=== PATIENT | female | born 1970 | race Caucasian/White ===

== ENCOUNTER 2016-09-23 17:29 | Inpatient (IN) | payer BC ==
[2016-09-23] MEDS ORDERED: ASPIRIN 81 MG CHEW PO STA (17:41)
[2016-09-23] MEDS ORDERED: SODIUM CHLORIDE 0.9% 1,000 ML IV STA (17:41)
--- NOTE | 2016-09-23 17:44 | ED ---
Arrhythmia/Palpitations HPI - General Source: patient, RN notes reviewed Mode of arrival: wheelchair Limitations: no limitations <Lorelei Leonardo - Last Filed: 09/23/16 18:47> <Howard Silva - Last Filed: 09/23/16 18:54> - General Chief Complaint: Arrhythmia/Palpitations Stated Complaint: A-fib Time Seen by Provider: 09/23/16 17:38 - History of Present Illness Initial Comments: 46-year-old female presents emergency Department chief complaint of rapid heart rate. Patient states she felt of heart was going fast. She is history of A. fib. Patient states she sounds are also however she's not taken in over a month because it makes her periods heavy. Patient denies any chest pain she denies any shortness of breath she denies any headache. Patient states that she did take her metoprolol which she takes today. Patient states his of the irregular heartbeat started this morning.Patient denies any recent fever, chills , shortness of breath, chest pain, back pain, abdominal pain, nausea vomiting, numbness or tingling, dysuria or hematuria, constipation or diarrhea, headaches or visual changes, or any other current symptoms. (Lorelei Leonardo) - Related Data Home Medications Medication Instructions Recorded Confirmed Ferrous Sulfate [Iron (65 MG 325 mg PO HS 05/03/15 09/23/16 Elemental)] Metoprolol Tartrate 50 mg PO BID 05/03/15 09/23/16 Sertraline HCl 100 mg PO DAILY 05/03/15 09/23/16 Triamterene/Hydrochlorothiazid 1 tab PO DAILY 05/03/15 09/23/16 [Triamterene-Hctz 37.5-25 mg Tb] Previous Rx's Medication Instructions Recorded Rivaroxaban [Xarelto] 20 mg PO DAILY #30 tab 05/04/15 Allergies Allergy/AdvReac Type Severity Reaction Status Date / Time venom-honey bee Allergy Swelling Verified 09/23/16 18:34 [bee venom (honey bee)] Review of Systems ROS Other: All systems not noted in ROS Statement are negative. <Lorelei Leonardo - Last Filed: 09/23/16 18:47> ROS Other: All systems not noted in ROS Statement are negative. <Howard Silva - Last Filed: 09/23/16 18:54> ROS Statement: Those systems with pertinent positive or pertinent negative responses have been documented in the HPI. Past Medical History Past Medical History: Atrial Fibrillation, Hypertension Additional Past Medical History / Comment(s): anemia History of Any Multi-Drug Resistant Organisms: None Reported Past Surgical History: Section Past Psychological History: Anxiety Smoking Status: Never smoker Past Alcohol Use History: Rare Past Drug Use History: None Reported - Past Family History Father Family Medical History: Hyperlipidemia, Osteoarthritis (OA) Mother Family Medical History: Asthma Additional Family Medical History / Comment(s): GRAVES DISEASE. PT'S MOM IN HER SLEEP AT AGE OF 63 <Lorelei Leonardo - Last Filed: 09/23/16 18:47> General Exam Limitations: no limitations <Lorelei Leonardo - Last Filed: 09/23/16 18:47> General appearance: alert, in no apparent distress, anxious Head exam: Present: atraumatic, normocephalic, normal inspection Eye exam: Present: normal appearance, PERRL, EOMI. Absent: scleral icterus, conjunctival injection, periorbital swelling ENT exam: Present: normal exam, mucous membranes moist Neck exam: Present: normal inspection. Absent: tenderness, meningismus, lymphadenopathy Respiratory exam: Present: normal lung sounds bilaterally. Absent: respiratory distress, wheezes, rales, rhonchi, stridor Cardiovascular Exam: Present: tachycardia, irregular rhythm, normal heart sounds. Absent: systolic murmur, diastolic murmur, rubs, gallop, clicks GI/Abdominal exam: Present: soft, normal bowel sounds. Absent: distended, tenderness, guarding, rebound, rigid Extremities exam: Present: normal inspection, full ROM, normal capillary refill. Absent: tenderness, pedal edema, joint swelling, calf tenderness Back exam: Present: normal inspection Neurological exam: Present: alert, oriented X3, CN II-XII intact Psychiatric exam: Present: normal affect, normal mood Skin exam: Present: warm, dry, intact, normal color. Absent: rash <Howard Silva - Last Filed: 09/23/16 18:54> - General Exam Comments Initial Comments: General: The patient is awake and alert, in no distress, and does not appear acutely ill. Eye: Pupils are equal, round and reactive to light, extra-ocular movements are intact; there is normal conjunctiva bilaterally. No signs of icterus. Ears, nose, mouth and throat: There are moist mucous membranes and no oral lesions. Neck: The neck is supple, there is no tenderness. Cardiovascular: There is a tachycardia with an irregular rhythm. No murmur, rub or gallop is appreciated. Respiratory: Lungs are clear to auscultation, respirations are non-labored, breath sounds are equal. No wheezes, stridor, rales, or rhonchi. Gastrointestinal: Soft, non-distended, non-tender abdomen without masses or organomegaly noted. There is no rebound or guarding present. No CVA tenderness. Bowel sounds are unremarkable. Back: There is no tenderness to palpation in the midline. There is no obvious deformity. No rashes noted. Musculoskeletal: Normal ROM, no tenderness, There is no pedal edema. There is no calf tenderness or swelling. Sensation intact. Pulses equal bilaterally 2+. Neurological: CN II-XII intact, There are no obvious motor or sensory deficits. Coordination appears grossly intact. Speech is normal. Skin: Skin is warm and dry and no rashes or lesions are noted. Psychiatric: Cooperative, appropriate mood & affect, normal judgment. (Lorelei Leonardo) EKG Findings - EKG Comments: EKG Findings:: Atrial fibrillation with RVR, ventricular rate 151, QRS duration 302 <Lorelei Leonardo - Last Filed: 09/23/16 18:47> Medical Decision Making - Lab Data Result diagrams: 09/23/16 17:45 09/23/16 17:45 <Lorelei Leonardo - Last Filed: 09/23/16 18:47> - Lab Data Result diagrams: 09/23/16 17:45 09/23/16 17:45 <Howard Silva - Last Filed: 09/23/16 18:54> - Medical Decision Making 46-year-old female presents with concern for irregular heartbeat. This time she is found to be in A. fib with RVR. Patient has not been taking her Xarelto. This time patient is found to be in A. fib. Cardizem drip was started patient's heart rate has come down to 120 at this time. We will continue the Cardizem and heparin was started as well we will admit the patient for continued observation. Cardiacs are negative at this time we will continue to repeat. Patient has been this plan. (Lorelei Leonardo) 46-year-old the ER with A. fib with RVR rate of 160s, rate currently well- controlled, place and anticoagulation Gene for cardiac observation, telemetry (Howard Sliva) - Lab Data Lab Results 09/23/16 09/23/16 09/23/16 Range/Units 17:45 17:45 17:45 WBC 7.7 (3.8-10.6) k/uL RBC 4.54 (3.80-5.40) m/uL Hgb 13.3 (11.4-16.0) gm/dL Hct 36.8 (34.0-46.0) % MCV 81.1 (80.0-100.0) fL MCH 29.2 (25.0-35.0) pg MCHC 36.0 (31.0-37.0) g/dL RDW 13.7 (11.5-15.5) % Plt Count 148 L (150-450) k/uL Neutrophils % 67 % Lymphocytes % 22 % Monocytes % 5 % Eosinophils % 2 % Basophils % 1 % Neutrophils # 5.2 (1.3-7.7) k/uL Lymphocytes # 1.7 (1.0-4.8) k/uL Monocytes # 0.4 (0-1.0) k/uL Eosinophils # 0.1 (0-0.7) k/uL Basophils # 0.1 (0-0.2) k/uL PT (9.0-12.0) sec INR (<1.1) APTT (22.0-30.0) sec Sodium 140 (137-145) mmol/L Potassium 4.2 (3.5-5.1) mmol/L Chloride 103 (98-107) mmol/L Carbon Dioxide 26 (22-30) mmol/L Anion Gap 11 mmol/L BUN 13 (7-17) mg/dL Creatinine 0.68 (0.52-1.04) mg/dL Est GFR (MDRD) Af Amer >60 (>60 ml/min/1.73 sqM) Est GFR (MDRD) Non-Af >60 (>60 ml/min/1.73 sqM) Glucose 122 H (74-99) mg/dL Calcium 9.1 (8.4-10.2) mg/dL Magnesium 1.8 (1.6-2.3) mg/dL Total Bilirubin 0.9 (0.2-1.3) mg/dL AST 35 (14-36) U/L ALT 53 H (9-52) U/L Alkaline Phosphatase 38 (38-126) U/L Total Creatine Kinase 93 (30-135) U/L CK-MB (CK-2) 0.9 (0.0-2.4) ng/mL CK-MB (CK-2) Rel Index 1.0 Troponin I <0.012 (0.000-0.034) ng/mL NT-Pro-B Natriuret Pep pg/mL Total Protein 7.6 (6.3-8.2) g/dL Albumin 4.4 (3.5-5.0) g/dL Urine Color Urine Appearance (Clear) Urine pH (5.0-8.0) Ur Specific [place] (1.001-1.035) Urine Protein (Negative) Urine Glucose (UA) (Negative) Urine Ketones (Negative) Urine Blood (Negative) Urine Nitrite (Negative) Urine Bilirubin (Negative) Urine Urobilinogen (<2.0) mg/dL Ur Leukocyte Esterase (Negative) Urine RBC (0-5) /hpf Urine WBC (0-5) /hpf Ur Squamous Epith Cells (0-4) /hpf Amorphous Sediment (None) /hpf 09/23/16 09/23/16 09/23/16 Range/Units 17:45 17:45 17:45 WBC (3.8-10.6) k/uL RBC (3.80-5.40) m/uL Hgb (11.4-16.0) gm/dL Hct (34.0-46.0) % MCV (80.0-100.0) fL MCH (25.0-35.0) pg MCHC (31.0-37.0) g/dL RDW (11.5-15.5) % Plt Count (150-450) k/uL Neutrophils % % Lymphocytes % % Monocytes % % Eosinophils % % Basophils % % Neutrophils # (1.3-7.7) k/uL Lymphocytes # (1.0-4.8) k/uL Monocytes # (0-1.0) k/uL Eosinophils # (0-0.7) k/uL Basophils # (0-0.2) k/uL PT 10.2 (9.0-12.0) sec INR 1.0 (<1.1) APTT 22.6 (22.0-30.0) sec Sodium (137-145) mmol/L Potassium (3.5-5.1) mmol/L Chloride (98-107) mmol/L Carbon Dioxide (22-30) mmol/L Anion Gap mmol/L BUN (7-17) mg/dL Creatinine (0.52-1.04) mg/dL Est GFR (MDRD) Af Amer (>60 ml/min/1.73 sqM) Est GFR (MDRD) Non-Af (>60 ml/min/1.73 sqM) Glucose (74-99) mg/dL Calcium (8.4-10.2) mg/dL Magnesium (1.6-2.3) mg/dL Total Bilirubin (0.2-1.3) mg/dL AST (14-36) U/L ALT (9-52) U/L Alkaline Phosphatase (38-126) U/L Total Creatine Kinase (30-135) U/L CK-MB (CK-2) (0.0-2.4) ng/mL CK-MB (CK-2) Rel Index Troponin I (0.000-0.034) ng/mL NT-Pro-B Natriuret Pep 440 pg/mL Total Protein (6.3-8.2) g/dL Albumin (3.5-5.0) g/dL Urine Color Light Yellow Urine Appearance Clear (Clear) Urine pH 6.5 (5.0-8.0) Ur Specific [place] 1.007 (1.001-1.035) Urine Protein Trace H (Negative) Urine Glucose (UA) Negative (Negative) Urine Ketones Negative (Negative) Urine Blood Small H (Negative) Urine Nitrite Negative (Negative) Urine Bilirubin Negative (Negative) Urine Urobilinogen <2.0 (<2.0) mg/dL Ur Leukocyte Esterase Negative (Negative) Urine RBC 1 (0-5) /hpf Urine WBC 1 (0-5) /hpf Ur Squamous Epith Cells 4 (0-4) /hpf Amorphous Sediment Rare H (None) /hpf Critical Care Time Critical Care Time: Yes Total Critical Care Time: 31 <Howard Silva - Last Filed: 09/23/16 18:54> Disposition Time of Disposition: 18:48 Decision Date: 09/23/16 Decision Time: 18:48 <Lorelei Leonardo - Last Filed: 09/23/16 18:47> <Howard Silva - Last Filed: 09/23/16 18:54> Clinical Impression: Atrial fibrillation with RVR Disposition: ADMITTED IP TO THIS HOSP Condition: Stable Referrals: Joselyn Dougherty III, MD [Primary Care Provider] - 1-2 days
[2016-09-23] MEDS ORDERED: HEPARIN SODIUM,PORCINE 5,000 UNIT/ML 1 ML VIAL IV PRN (17:46)
[2016-09-23] MEDS ORDERED: HEPARIN SODIUM,PORCINE 10,000 UNIT/ML 1 ML VIAL IV ONE (17:46)
[2016-09-23] MEDS ORDERED: DILTIAZEM 5 MG/ML 5 ML VIAL IV STA (17:46)
[2016-09-23 18:02] LABS: Basophils # (A) 0.1 k/uL (0-0.2); Basophils % (A) 1 %; CHCM 34.7; Eosinophils # (A) 0.1 k/uL (0-0.7); Eosinophils % (A) 2 %; HCT 36.8 % (34.0-46.0); HDW 2.81; HGB 13.3 gm/dL (11.4-16.0); Luc # (Auto) 0.23; Luc % (Auto) 3; Lymphocytes # (A) 1.7 k/uL (1.0-4.8); Lymphocytes % (A) 22 %; MCH 29.2 pg (25.0-35.0); MCV 81.1 fL (80.0-100.0); Mean Platelet Volume 10.7; Monocytes # (A) 0.4 k/uL (0-1.0); Monocytes % (A) 5 %; Neutrophils # (A) 5.2 k/uL (1.3-7.7); Neutrophils % (A) 67 %; RBC 4.54 m/uL (3.80-5.40); RDW 13.7 % (11.5-15.5); WBC 7.7 k/uL (3.8-10.6); WBC (Perox) 7.34
[2016-09-23 18:10] LABS: Partial Thromboplastin Time 22.6 sec (22.0-30.0)
[2016-09-23 18:11] LABS: ALT 53 U/L (9-52); AST 35 U/L (14-36); Alkaline Phosphatase 38 U/L (38-126); Anion Gap 11 mmol/L; Blood Urea Nitrogen 13 mg/dL (7-17); Calcium 9.1 mg/dL (8.4-10.2); Carbon Dioxide 26 mmol/L (22-30); Chloride 103 mmol/L (98-107); Glucose 122 mg/dL (74-99); Magnesium 1.8 mg/dL (1.6-2.3); Non-African American GFR(MDRD) >60 (>60 ml/min/1.73 sqM); Potassium 4.2 mmol/L (3.5-5.1); Sodium 140 mmol/L (137-145); Total Bilirubin 0.9 mg/dL (0.2-1.3); Total Protein 7.6 g/dL (6.3-8.2)
[2016-09-23 18:13] LABS: Prothrombin Time 10.2 sec (9.0-12.0)
[2016-09-23] MEDS: HEPARIN SODIUM,PORCINE/D5W PMX 25,000 UNIT in DEXTROSE/WATER 1 500ML.BAG IV SCH (18:15)
[2016-09-23 18:27] LABS: Creatine Kinase 93 U/L (30-135)
[2016-09-23] MEDS ORDERED: DILTIAZEM 125 MG in SODIUM CHLORIDE 0.9% 100 ML IV ONE (18:30)
[2016-09-23 18:32] LABS: Amorphous Sediment,Urine Rare /hpf; Appearance,Urine Clear (Clear); Bilirubin,Urine Negative (Negative); Glucose,Urine (UA) Negative (Negative); Ketones,Urine Negative (Negative); Leukocyte Esterase,Urine Negative (Negative); Nitrite,Urine Negative (Negative); PH, Urine 6.5 (5.0-8.0); Particle Count 1471; Protein,Urine Trace (Negative); RBC,Urine 1 /hpf (0-5); Specific Gravity,Urine 1.007 (1.001-1.035); Squamous Epithelial Cell,Urine 4 /hpf (0-4); UA Billing (MACRO vs. MICRO) MICRO; Urobilinogen,Urine <2.0 mg/dL (<2.0); WBC,Urine 1 /hpf (0-5)
[2016-09-23 18:40] LABS: Creatine Kinase MB 0.9 ng/mL (0.0-2.4); Troponin I <0.012 ng/mL (0.000-0.034)
--- NOTE | 2016-09-23 18:43 | XR ---
EXAMINATION TYPE: XR chest 2V DATE OF EXAM: 09/23/2016 COMPARISON: 05/03/2015 HISTORY: Chest pain TECHNIQUE: Frontal and lateral views of the chest are obtained. FINDINGS: Heart and mediastinum are normal. Lungs are clear. Diaphragm is normal. There are chest le ads. Bony thorax is intact. IMPRESSION: Normal chest. No change.
[2016-09-23] MEDS ORDERED: NALOXONE 0.4 MG/ML 1 ML VIAL IV PRN (18:49)
[2016-09-23] MEDS ORDERED: ONDANSETRON 4 MG/2 ML VIAL IVP PRN (18:49)
[2016-09-23] MEDS ORDERED: ACETAMINOPHEN TAB 325 MG TAB PO PRN (18:49)
[2016-09-23 19:28] VITALS: RESP 18
[2016-09-23 20:23] VITALS: BMI 54.8
[2016-09-23] MEDS ORDERED: FERROUS SULFATE 325 MG TAB PO SCH ×2 (21:00)
[2016-09-23] MEDS ORDERED: METOPROLOL TARTRATE 50 MG TAB PO SCH (21:00)
[2016-09-23] MEDS: METOPROLOL TARTRATE 50 MG TAB PO SCH (23:43)
[2016-09-23] MEDS: SODIUM CHLORIDE 0.9% 1,000 ML IV SCH (23:43)
[2016-09-24 00:45] LABS: Creatine Kinase 81 U/L (30-135)
[2016-09-24 00:58] LABS: Creatine Kinase MB 0.8 ng/mL (0.0-2.4); Troponin I <0.012 ng/mL (0.000-0.034)
[2016-09-24] MEDS: HEPARIN SODIUM,PORCINE/D5W PMX 25,000 UNIT in DEXTROSE/WATER 1 500ML.BAG IV SCH (06:51)
[2016-09-24 07:08] LABS: Creatine Kinase 68 U/L (30-135)
[2016-09-24 07:21] LABS: Creatine Kinase MB 0.8 ng/mL (0.0-2.4); Troponin I <0.012 ng/mL (0.000-0.034)
[2016-09-24] MEDS: SODIUM CHLORIDE 0.9% 1,000 ML IV SCH (08:25)
[2016-09-24] MEDS: METOPROLOL TARTRATE 50 MG TAB PO SCH (08:33)
[2016-09-24 08:39] VITALS: PULSE 152; TEMP 97.7
[2016-09-24] MEDS ORDERED: TRIAMTERENE-HCTZ 37.5-25MG 1 EACH TAB PO SCH (09:00)
[2016-09-24] MEDS ORDERED: SERTRALINE 100 MG TAB PO SCH ×2 (09:00)
[2016-09-24 12:30] VITALS: BP 155/70
--- NOTE | 2016-09-24 16:36 | P.HPIM ---
History of Present Illness H&P Date: 09/24/16 (DC summary) 46-year-old female with history of atrial fibrillation on anticoagulation comes in to the hospital with the acute onset palpitations. Patient states that she had these episodes in the past where she goes into rapid ventricular rate. ER EKG was noted to be in A. fib with rapid ventricular rate. Patient was started on a Cardizem drip. Patient takes metoprolol at home and has not missed her medications in the recent times. 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 Review of Systems All systems: negative (Noted in HPI) Past Medical History Past Medical History: Atrial Fibrillation, Hypertension Additional Past Medical History / Comment(s): anemia History of Any Multi-Drug Resistant Organisms: None Reported Past Surgical History: Section Past Psychological History: Anxiety Smoking Status: Never smoker Past Alcohol Use History: Rare Past Drug Use History: None Reported - Past Family History Father Family Medical History: Hyperlipidemia, Osteoarthritis (OA) Mother Family Medical History: Asthma Additional Family Medical History / Comment(s): GRAVES DISEASE. PT'S MOM IN HER SLEEP AT AGE OF 63 Medications and Allergies Home Medications Medication Instructions Recorded Confirmed Type Ferrous Sulfate [Iron (65 MG 325 mg PO HS 05/03/15 09/23/16 History Elemental)] Metoprolol Tartrate 50 mg PO BID 05/03/15 09/23/16 History Sertraline HCl 100 mg PO DAILY 05/03/15 09/23/16 History Triamterene/Hydrochlorothiazid 1 tab PO DAILY 05/03/15 09/23/16 History [Triamterene-Hctz 37.5-25 mg Tb] Allergies Allergy/AdvReac Type Severity Reaction Status Date / Time venom-honey bee Allergy Swelling Verified 09/23/16 18:34 [bee venom (honey bee)] Physical Exam Vitals: Vital Signs Temp Pulse Pulse Pulse Resp BP BP 09/24/16 12:27 97.7 F 52 L 58 L 16 155/70 09/24/16 12:07 09/24/16 08:36 97.7 F 49 L 58 L 16 178/78 09/24/16 04:00 97.6 F 58 L 18 145/69 09/24/16 00:00 48 L 18 133/62 09/23/16 20:07 98.5 F 55 L 18 129/59 09/23/16 19:26 98.2 F 69 18 97/66 09/23/16 18:18 121 H 20 140/98 09/23/16 17:49 152 H 09/23/16 17:30 98.3 F 137 H 18 135/88 Pulse Ox 09/24/16 12:27 99 09/24/16 12:07 100 09/24/16 08:36 98 09/24/16 04:00 97 09/24/16 00:00 98 09/23/16 20:07 96 09/23/16 19:26 96 09/23/16 18:18 98 09/23/16 17:49 09/23/16 17:30 96 Intake and Output 09/24/16 09/24/16 09/24/16 06:59 14:59 22:59 Intake Total 642 Output Total 200 Balance -200 642 Intake: Oral 642 Output: Urine 200 Other: # Voids 1 Weight 157.6 kg Physical exam Gen. appearance oriented 3 in no distress Neck is supple no JVD Lungs good air entry clear to auscultation no rhonchi or wheezing Heart S1-S2 heard regular rate and rhythm no murmurs appreciated Abdomen is soft nontender no organomegaly bowel sounds are intact Neurologically cranial nerves II-12 grossly intact no focal motor or sensory deficits noted Skin no abnormalities appreciated Results CBC & Chem 7: 09/23/16 17:45 09/23/16 17:45 Labs: Abnormal Lab Results - Last 24 Hours (Table) 09/23/16 09/23/16 09/23/16 Range/Units 17:45 17:45 17:45 Plt Count 148 L (150-450) k/uL APTT (22.0-30.0) sec Glucose 122 H (74-99) mg/dL ALT 53 H (9-52) U/L Urine Protein Trace H (Negative) Urine Blood Small H (Negative) Amorphous Sediment Rare H (None) /hpf 09/23/16 Range/Units 20:55 Plt Count (150-450) k/uL APTT 54.7 H (22.0-30.0) sec Glucose (74-99) mg/dL ALT (9-52) U/L Urine Protein (Negative) Urine Blood (Negative) Amorphous Sediment (None) /hpf Thrombosis Risk Factor Assmnt - Choose All That Apply Any of the Below Risk Factors Present?: Yes Each Factor Represents 1 point: Age 41-60 years, Obesity (BMI >25) Other Risk Factors: No Thrombosis Risk Factor Assessment Total Risk Factor Score: 2 Thrombosis Risk Factor Assessment Level: Low Risk Assessment and Plan Plan: #1 atrial fibrillation with rapid ventricular rate in a patient known with permanent A. 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
[2016-09-25] MEDS ORDERED: RIVAROXABAN 10 MG TAB PO SCH (07:30)
== END 2016-09-24 16:28 | disposition home or self-care (01) | DRG 310 ==
LOC: EC 17:29 → 6SEL 18:55
PROVIDERS: ADMIT Internal Medicine; ATTEND Internal Medicine
DX: I48.2 Chronic atrial fibrillation (principal); D69.6 Thrombocytopenia, unspecified; I10 Essential (primary) hypertension; T45.516A Underdosing of anticoagulants, initial encounter; F41.9 Anxiety disorder, unspecified; Z82.5 Family history of asthma and other chronic lower respiratory diseases; Z79.01 Long term (current) use of anticoagulants; Z91.030 Bee allergy status; Z79.899 Other long term (current) drug therapy; Z83.49 Family history of other endocrine, nutritional and metabolic diseases; Z83.42 Family history of familial hypercholesterolemia
CPT/HCPCS: 36415; 71020; 80053; 81001; 82550; 82553; 83735; 83880; 84484; 85025; 85610; 85730; 93005

== ENCOUNTER 2018-08-19 22:47 | Emergency (ER) | payer BC ==
[2018-08-19 23:12] VITALS: RESP 20; TEMP 98.2
[2018-08-20 00:20] LABS: ALT 62 U/L (9-52); AST 60 U/L (14-36); Albumin 4.3 g/dL (3.5-5.0); Alkaline Phosphatase 37 U/L (38-126); Anion Gap 10 mmol/L; Blood Urea Nitrogen 13 mg/dL (7-17); Calcium 9.1 mg/dL (8.4-10.2); Carbon Dioxide 26 mmol/L (22-30); Chloride 102 mmol/L (98-107); Glucose 176 mg/dL (74-99); INR 0.9 (<1.2); Partial Thromboplastin Time 23.9 sec (22.0-30.0); Potassium 3.8 mmol/L (3.5-5.1); Prothrombin Time 9.8 sec (9.0-12.0); Sodium 138 mmol/L (137-145); Total Protein 7.1 g/dL (6.3-8.2)
[2018-08-20 00:25] LABS: Basophils % (A) 1 %; Eosinophils # (A) 0.1 k/uL (0-0.7); Eosinophils % (A) 2 %; HCT 29.3 % (34.0-46.0); HGB 10.1 gm/dL (11.4-16.0); Lymphocytes # (A) 1.1 k/uL (1.0-4.8); Lymphocytes % (A) 19 %; MCH 28.4 pg (25.0-35.0); MCHC 34.5 g/dL (31.0-37.0); MCV 82.5 fL (80.0-100.0); Mean Platelet Volume 10.8; Monocytes # (A) 0.4 k/uL (0-1.0); Monocytes % (A) 7 %; Neutrophils # (A) 4.1 k/uL (1.3-7.7); Neutrophils % (A) 67 %; Platelet Count 134 k/uL (150-450); RBC 3.55 m/uL (3.80-5.40); RDW 14.8 % (11.5-15.5); WBC 6.1 k/uL (3.8-10.6)
[2018-08-20 00:57] LABS: Appearance,Urine Clear (Clear); Bilirubin,Urine Negative (Negative); Blood,Urine Moderate (Negative); Color,Urine Yellow; Glucose,Urine (UA) Negative (Negative); Hyaline Casts,Urine 1 /lpf (0-2); Ketones,Urine Negative (Negative); Leukocyte Esterase,Urine Negative (Negative); Mucus,Urine Rare /hpf; Nitrite,Urine Negative (Negative); PH, Urine 5.5 (5.0-8.0); Protein,Urine Negative (Negative); RBC,Urine 1 /hpf (0-5); Specific Gravity,Urine 1.016 (1.001-1.035); Squamous Epithelial Cell,Urine <1 /hpf (0-4); Urobilinogen,Urine <2.0 mg/dL (<2.0); WBC,Urine 1 /hpf (0-5)
[2018-08-20 01:00] LABS: Anisocytosis (M) Present; Large Platelets Present; Polychromasia Present
--- NOTE | 2018-08-20 01:19 | US ---
EXAM: US Pelvis Complete, Transabdominal US Pelvis, Transvaginal CLINICAL HISTORY: Pain. Bleeding with clots. TECHNIQUE: Transvaginal pelvic ultrasound. 20 images received. COMPARISON: No relevant prior studies available. FINDINGS: Uterus/cervix: Cluster of large nabothian cysts. Uterus measures about 14.8 x 7.6 x 4.5 cm. Poorly visualized due to patient's body habitus. Endometrial thickness measures about 1.9 Ovaries are not demonstrated. Ovaries not demonstrated due to bowel gas. Free fluid: No free fluid. IMPRESSION: No acute findings.
--- NOTE | 2018-08-20 01:38 | ED ---
Female Urogenital HPI - General Chief complaint: Vaginal Bleeding Stated complaint: Vaginal Bleeding Time Seen by Provider: 08/19/18 23:21 Source: patient Mode of arrival: ambulatory Limitations: no limitations - History of Present Illness Initial comments: 48-year-old female patient with past medical history significant for atrial fibrillation currently taking Xarelto presents to the emergency department today for evaluation of heavy vaginal bleeding. Patient states that she started her period approximately 2 weeks ago and has been bleeding since. Patient states she is passing large clots today. Patient states at times she is only able to wear a pad and tampon for an hour at other times she is able to wear longer. Patient does have a history of anemia and states she has had have blood transfusions in the past. Patient states she is concerned she may be bleeding too much. Patient denies any significant abdominal pain or discomfort. States that her last gynecological exam was many years ago. She denies any dizziness or weakness. Denies any chest pain or shortness of breath. She denies any chance of . Patient denies any recent rash, fever, chills, nausea, vomiting, diarrhea, constipation, back pain, numbness, tingling, hematuria, dysuria, urinary urgency, urinary frequency, headache, visual changes, or any other complaints. - Related Data Home Medications Medication Instructions Recorded Confirmed Triamterene/Hydrochlorothiazid 1 tab PO DAILY 05/03/15 08/19/18 [Triamterene-Hctz 37.5-25 mg Tb] ALPRAZolam [Xanax] 1 mg PO DAILY PRN 08/19/18 08/19/18 Ferrous Sulfate [Feosol] 325 mg PO BID 08/19/18 08/19/18 Flecainide Acetate 100 mg PO DAILY PRN 08/19/18 08/19/18 Metoprolol Succinate (ER) [Toprol 50 mg PO DAILY 08/19/18 08/19/18 XL] Previous Rx's Medication Instructions Recorded Rivaroxaban [Xarelto] 20 mg PO DAILY #30 tab 05/04/15 Allergies Allergy/AdvReac Type Severity Reaction Status Date / Time venom-honey bee Allergy Swelling Verified 08/19/18 23:39 [bee venom (honey bee)] lisinopril AdvReac Cough Verified 08/19/18 23:40 venlafaxine [From Effexor] AdvReac Hallucinati Verified 08/19/18 23:40 ons Review of Systems ROS Statement: Those systems with pertinent positive or pertinent negative responses have been documented in the HPI. ROS Other: All systems not noted in ROS Statement are negative. Past Medical History Past Medical History: Atrial Fibrillation, Hypertension Additional Past Medical History / Comment(s): anemia History of Any Multi-Drug Resistant Organisms: None Reported Past Surgical History: Section Past Psychological History: Anxiety Smoking Status: Never smoker Past Alcohol Use History: Rare Past Drug Use History: None Reported - Past Family History Father Family Medical History: Hyperlipidemia, Osteoarthritis (OA) Mother Family Medical History: Asthma Additional Family Medical History / Comment(s): GRAVES DISEASE. PT'S MOM IN HER SLEEP AT AGE OF 63 General Exam Limitations: no limitations General appearance: alert, in no apparent distress, other (Physical well- developed, well-nourished adult female patient in no acute distress. Vital signs upon presentation are temperature 98.2F, pulse 68, respirations 20, blood pressure 155/82, pulse ox 98% on room air.) Eye exam: Present: normal appearance, PERRL, EOMI. Absent: scleral icterus, conjunctival injection, periorbital swelling ENT exam: Present: normal exam, normal oropharynx, mucous membranes moist Respiratory exam: Present: normal lung sounds bilaterally. Absent: respiratory distress, wheezes, rales, rhonchi, stridor Cardiovascular Exam: Present: regular rate, normal rhythm, normal heart sounds. Absent: systolic murmur, diastolic murmur, rubs, gallop, clicks GI/Abdominal exam: Present: soft, normal bowel sounds. Absent: distended, tenderness, guarding, rebound, rigid External exam: Present: normal external exam Speculum exam: Present: vaginal bleeding (Mild dark red vaginal bleeding, no clots noted.), other (Cervical os is closed). Absent: normal speculum exam By manual exam: Present: normal by manual exam Neurological exam: Present: alert, oriented X3, CN II-XII intact Psychiatric exam: Present: normal affect, normal mood Skin exam: Present: warm, dry, intact, normal color. Absent: rash Course Vital Signs 08/19/18 08/20/18 23:08 02:19 Temperature 98.2 F 98.2 F Pulse Rate 68 62 Respiratory 20 20 Rate Blood Pressure 155/82 166/89 O2 Sat by Pulse 98 95 Oximetry Medical Decision Making - Medical Decision Making 40-year-old female patient presents to the emergency department today for evaluation for heavy vaginal bleeding. Physical examination reveals soft nontender abdomen. Pelvic exam showed mild dark red vaginal bleeding. No clots. Cervical os is closed. Labs reviewed and did reveal hemoglobin 10.1. She is instructed to follow-up with the vamp wetter for further evaluation as soon as possible. She is instructed to return for any dizziness, weakness, or syncope. She is instructed to follow-up with her primary care physician for recheck in 1-2 days. Return parameters discussed in detail. They verbalize understanding and agrees with this plan. - Lab Data Result diagrams: 08/19/18 23:30 08/19/18 23:30 Lab Results 08/19/18 08/19/18 08/19/18 Range/Units 23:30 23:30 23:30 WBC 6.1 (3.8-10.6) k/uL RBC 3.55 L (3.80-5.40) m/uL Hgb 10.1 L (11.4-16.0) gm/dL Hct 29.3 L (34.0-46.0) % MCV 82.5 (80.0-100.0) fL MCH 28.4 (25.0-35.0) pg MCHC 34.5 (31.0-37.0) g/dL RDW 14.8 (11.5-15.5) % Plt Count 134 L (150-450) k/uL Neutrophils % 67 % Lymphocytes % 19 % Monocytes % 7 % Eosinophils % 2 % Basophils % 1 % Neutrophils # 4.1 (1.3-7.7) k/uL Lymphocytes # 1.1 (1.0-4.8) k/uL Monocytes # 0.4 (0-1.0) k/uL Eosinophils # 0.1 (0-0.7) k/uL Basophils # 0.0 (0-0.2) k/uL Manual Slide Review Performed Large Platelets Present Polychromasia Present Anisocytosis (manual) Present PT 9.8 (9.0-12.0) sec INR 0.9 (<1.2) APTT 23.9 (22.0-30.0) sec Sodium 138 (137-145) mmol/L Potassium 3.8 (3.5-5.1) mmol/L Chloride 102 (98-107) mmol/L Carbon Dioxide 26 (22-30) mmol/L Anion Gap 10 mmol/L BUN 13 (7-17) mg/dL Creatinine 0.64 (0.52-1.04) mg/dL Est GFR (CKD-EPI)AfAm >90 (>60 ml/min/1.73 sqM) Est GFR (CKD-EPI)NonAf >90 (>60 ml/min/1.73 sqM) Glucose 176 H (74-99) mg/dL Calcium 9.1 (8.4-10.2) mg/dL Total Bilirubin 1.0 (0.2-1.3) mg/dL AST 60 H (14-36) U/L ALT 62 H (9-52) U/L Alkaline Phosphatase 37 L (38-126) U/L Total Protein 7.1 (6.3-8.2) g/dL Albumin 4.3 (3.5-5.0) g/dL Urine Color Urine Appearance (Clear) Urine pH (5.0-8.0) Ur Specific [place] (1.001-1.035) Urine Protein (Negative) Urine Glucose (UA) (Negative) Urine Ketones (Negative) Urine Blood (Negative) Urine Nitrite (Negative) Urine Bilirubin (Negative) Urine Urobilinogen (<2.0) mg/dL Ur Leukocyte Esterase (Negative) Urine RBC (0-5) /hpf Urine WBC (0-5) /hpf Ur Squamous Epith Cells (0-4) /hpf Hyaline Casts (0-2) /lpf Urine Mucus (None) /hpf Urine HCG, Qual (Not Detectd) Blood Type Blood Type Recheck Antibody Screen Spec Expiration Date 08/19/18 08/20/18 08/20/18 Range/Units 23:31 00:05 00:05 WBC (3.8-10.6) k/uL RBC (3.80-5.40) m/uL Hgb (11.4-16.0) gm/dL Hct (34.0-46.0) % MCV (80.0-100.0) fL MCH (25.0-35.0) pg MCHC (31.0-37.0) g/dL RDW (11.5-15.5) % Plt Count (150-450) k/uL Neutrophils % % Lymphocytes % % Monocytes % % Eosinophils % % Basophils % % Neutrophils # (1.3-7.7) k/uL Lymphocytes # (1.0-4.8) k/uL Monocytes # (0-1.0) k/uL Eosinophils # (0-0.7) k/uL Basophils # (0-0.2) k/uL Manual Slide Review Large Platelets Polychromasia Anisocytosis (manual) PT (9.0-12.0) sec INR (<1.2) APTT (22.0-30.0) sec Sodium (137-145) mmol/L Potassium (3.5-5.1) mmol/L Chloride (98-107) mmol/L Carbon Dioxide (22-30) mmol/L Anion Gap mmol/L BUN (7-17) mg/dL Creatinine (0.52-1.04) mg/dL Est GFR (CKD-EPI)AfAm (>60 ml/min/1.73 sqM) Est GFR (CKD-EPI)NonAf (>60 ml/min/1.73 sqM) Glucose (74-99) mg/dL Calcium (8.4-10.2) mg/dL Total Bilirubin (0.2-1.3) mg/dL AST (14-36) U/L ALT (9-52) U/L Alkaline Phosphatase (38-126) U/L Total Protein (6.3-8.2) g/dL Albumin (3.5-5.0) g/dL Urine Color Yellow Urine Appearance Clear (Clear) Urine pH 5.5 (5.0-8.0) Ur Specific [place] 1.016 (1.001-1.035) Urine Protein Negative (Negative) Urine Glucose (UA) Negative (Negative) Urine Ketones Negative (Negative) Urine Blood Moderate H (Negative) Urine Nitrite Negative (Negative) Urine Bilirubin Negative (Negative) Urine Urobilinogen <2.0 (<2.0) mg/dL Ur Leukocyte Esterase Negative (Negative) Urine RBC 1 (0-5) /hpf Urine WBC 1 (0-5) /hpf Ur Squamous Epith Cells <1 (0-4) /hpf Hyaline Casts 1 (0-2) /lpf Urine Mucus Rare H (None) /hpf Urine HCG, Qual Not Detected (Not Detectd) Blood Type A Positive Blood Type Recheck No Antibody Screen NEGATIVE Spec Expiration Date 08/22/2018 - 2331 - Radiology Data Radiology results: report reviewed, image reviewed Transvaginal pelvic ultrasound was obtained. Report was reviewed in its entirety. Impression by Dr. Horn shows no acute findings. Disposition Clinical Impression: Dysfunctional uterine bleeding Disposition: HOME SELF-CARE Condition: Good Instructions (If sedation given, give patient instructions): Dysfunctional Uterine Bleeding (ED) Additional Instructions: Increase fluids. Follow-up with vamp wetter for further evaluation as soon as possible. Return to the emergency department immediately for any new, worsening, or concerning symptoms. Is patient prescribed a controlled substance at d/c from ED?: No Referrals: Joselyn Dougherty III, MD [Primary Care Provider] - 1-2 days Deanna Morgan DO [Doctor of Osteopathic Medicine] - 1-2 days Time of Disposition: 01:38
[2018-08-20 02:20] VITALS: BP 166/89; PULSE 62
== END 2018-08-20 02:20 | disposition home or self-care (01) ==
LOC: EC 22:47
DX: N93.8 Other specified abnormal uterine and vaginal bleeding (principal); I10 Essential (primary) hypertension; D64.9 Anemia, unspecified; Z79.899 Other long term (current) drug therapy; Z91.030 Bee allergy status; Z88.8 Allergy status to other drugs, medicaments and biological substances
CPT/HCPCS: 36415; 76830; 80053; 81001; 81025; 85025; 85610; 85730; 86850; 86900; 86901; 99284

== ENCOUNTER 2018-10-10 04:17 | Inpatient (IN) | payer BC ==
[2018-10-10] MEDS ORDERED: DILTIAZEM DRIP BOLUS FROM BAG 1 MG SOLN IV ONE (04:32)
[2018-10-10] MEDS ORDERED: SODIUM CHLORIDE 0.9% 500 ML 500 ML IV STA (04:32)
[2018-10-10] MEDS ORDERED: DILTIAZEM 125 MG in SODIUM CHLORIDE 0.9% 100 ML IV SCH (04:45)
[2018-10-10] MEDS ORDERED: FLECAINIDE 50 MG TAB PO STA (04:52)
--- NOTE | 2018-10-10 05:03 | ED ---
Arrhythmia/Palpitations HPI - General Chief Complaint: Arrhythmia/Palpitations Stated Complaint: A-Fib Time Seen by Provider: 10/10/18 04:32 Source: patient Mode of arrival: ambulatory Limitations: no limitations - History of Present Illness Initial Comments: This patient is a 48-year-old woman who presents with complaint that she believes she has gone back in atrial fibrillation. She has history of previous atrial fibrillation that has been controlled with Flecainide and anticoagulation with the Xarelto. She states that her medicines were briefly stopped when she had a D&C performed earlier this month. The patient states she was trying to rest tonight and then it felt as if her atrial fibrillation had kicked back in. She noted palpitations in her chest and also was feeling funny in her head and noted a change in her breathing. Denies having any cass chest pain. She had previously been instructed to take an additional dose or medication at this occurred. She tried taking a 100 mg tablet and when there was no change she presented here for further evaluation and treatment. MD Complaint: rapid heart beat Onset/Timin -: hour(s) Context: occurred during rest Arrhythmia History: atrial fibrillation Associated Symptoms: shortness of breath Treatments Prior to Arrival: other (49) - Related Data Home Medications Medication Instructions Recorded Confirmed Triamterene/Hydrochlorothiazid 1 tab PO DAILY 05/03/15 10/10/18 [Triamterene-Hctz 37.5-25 mg Tb] ALPRAZolam [Xanax] 1 mg PO DAILY PRN 08/19/18 10/10/18 Ferrous Sulfate [Feosol] 325 mg PO BID 08/19/18 10/10/18 Flecainide Acetate 100 mg PO DAILY PRN 08/19/18 10/10/18 Metoprolol Succinate (ER) [Toprol 50 mg PO DAILY 08/19/18 10/10/18 XL] Acetaminophen Tab [Tylenol Tab] 1,000 mg PO Q6HR PRN 10/10/18 10/10/18 Cetirizine HCl [Zyrtec] 10 mg PO DAILY PRN 10/10/18 10/10/18 Ergocalciferol [Vitamin D2] 50,000 unit PO WE 10/10/18 10/10/18 Ibuprofen [Motrin] 800 mg PO Q6H PRN 10/10/18 10/10/18 Magnesium Chloride [Slow Mag] 64 mg PO DAILY 10/10/18 10/10/18 Previous Rx's Medication Instructions Recorded Rivaroxaban [Xarelto] 20 mg PO DAILY #30 tab 05/04/15 Allergies Allergy/AdvReac Type Severity Reaction Status Date / Time venom-honey bee Allergy Swelling Verified 10/10/18 07:32 [bee venom (honey bee)] lisinopril AdvReac Cough Verified 10/10/18 07:32 venlafaxine [From Effexor] AdvReac Hallucinati Verified 10/10/18 07:32 ons Review of Systems ROS Statement: Those systems with pertinent positive or pertinent negative responses have been documented in the HPI. ROS Other: All systems not noted in ROS Statement are negative. Constitutional: Denies: fever Eyes: Denies: vision change Respiratory: Denies: cough, dyspnea Cardiovascular: Denies: chest pain, palpitations, edema Endocrine: Reports: fatigue Gastrointestinal: Denies: abdominal pain, vomiting, diarrhea Genitourinary: Denies: dysuria, hematuria Musculoskeletal: Denies: back pain Skin: Denies: rash Past Medical History Past Medical History: Atrial Fibrillation, Hypertension Additional Past Medical History / Comment(s): anemia History of Any Multi-Drug Resistant Organisms: None Reported Past Surgical History: Section Additional Past Surgical History / Comment(s): D &C 09/2018 Past Psychological History: Anxiety Smoking Status: Never smoker Past Alcohol Use History: Rare Past Drug Use History: None Reported - Past Family History Father Family Medical History: Hyperlipidemia, Osteoarthritis (OA) Mother Family Medical History: Asthma Additional Family Medical History / Comment(s): GRAVES DISEASE. PT'S MOM IN HER SLEEP AT AGE OF 63 General Exam Limitations: no limitations General appearance: alert, in no apparent distress Head exam: Present: atraumatic, normocephalic Eye exam: Present: normal appearance. Absent: scleral icterus, conjunctival injection ENT exam: Present: normal oropharynx Respiratory exam: Present: normal lung sounds bilaterally. Absent: respiratory distress, wheezes, rales, rhonchi, stridor Cardiovascular Exam: Present: tachycardia, irregular rhythm, normal heart sounds. Absent: systolic murmur, diastolic murmur, rubs, gallop GI/Abdominal exam: Present: soft. Absent: distended, tenderness, guarding, rebound Extremities exam: Present: normal inspection, normal capillary refill. Absent: pedal edema, calf tenderness Back exam: Present: normal inspection. Absent: CVA tenderness (R), CVA tenderness (L) Neurological exam: Present: alert Skin exam: Present: warm, dry, intact, normal color. Absent: rash Course Vital Signs 10/10/18 10/10/18 10/10/18 04:27 04:36 05:21 Temperature 98 F Pulse Rate 158 H 150 H Pulse Rate [ 147 H Hemotherapist ] Respiratory 22 18 Rate Blood Pressure 131/119 125/95 O2 Sat by Pulse 98 96 Oximetry 10/10/18 10/10/18 06:08 07:20 Temperature Pulse Rate 131 H 129 H Pulse Rate [ Hemotherapist ] Respiratory 18 18 Rate Blood Pressure 118/99 133/101 O2 Sat by Pulse 97 96 Oximetry EKG Findings - EKG Results: EKG: interpreted by ERMD, normal axis, normal QRS EKG shows: tachycardia (Rate approximately 150 bpm.), atrial fibrillation - Blocks, [place], Hypertrophy, ST Abn: Repolarization changes or abnormalities: nonspecific abnormality, ST segment, and/or T wave Medical Decision Making - Medical Decision Making Did attempt to control the patient's atrial fibrillation with additional dose of flecainide. When this was unsuccessful, case discussed with Dr. Dutton. His treatment recommendations are incorporated. Patient be admitted for further treatment - Lab Data Result diagrams: 10/10/18 05:30 10/10/18 05:30 Lab Results 10/10/18 10/10/18 10/10/18 Range/Units 05:30 05:30 05:30 WBC 8.4 (3.8-10.6) k/uL RBC 4.21 (3.80-5.40) m/uL Hgb 11.4 (11.4-16.0) gm/dL Hct 35.5 (34.0-46.0) % MCV 84.1 (80.0-100.0) fL MCH 27.0 (25.0-35.0) pg MCHC 32.1 (31.0-37.0) g/dL RDW 14.0 (11.5-15.5) % Plt Count 148 L (150-450) k/uL Neutrophils % 66 % Lymphocytes % 24 % Monocytes % 5 % Eosinophils % 2 % Basophils % 1 % Neutrophils # 5.5 (1.3-7.7) k/uL Lymphocytes # 2.0 (1.0-4.8) k/uL Monocytes # 0.5 (0-1.0) k/uL Eosinophils # 0.2 (0-0.7) k/uL Basophils # 0.1 (0-0.2) k/uL PT 9.5 (9.0-12.0) sec INR 0.9 (<1.2) APTT 22.4 (22.0-30.0) sec Sodium 139 (137-145) mmol/L Potassium 4.2 (3.5-5.1) mmol/L Chloride 104 (98-107) mmol/L Carbon Dioxide 24 (22-30) mmol/L Anion Gap 11 mmol/L BUN 14 (7-17) mg/dL Creatinine 0.59 (0.52-1.04) mg/dL Est GFR (CKD-EPI)AfAm >90 (>60 ml/min/1.73 sqM) Est GFR (CKD-EPI)NonAf >90 (>60 ml/min/1.73 sqM) Glucose 171 H (74-99) mg/dL Calcium 9.0 (8.4-10.2) mg/dL Magnesium 1.8 (1.6-2.3) mg/dL Total Bilirubin 0.4 (0.2-1.3) mg/dL AST 36 (14-36) U/L ALT 44 (9-52) U/L Alkaline Phosphatase 36 L (38-126) U/L Troponin I (0.000-0.034) ng/mL Total Protein 7.2 (6.3-8.2) g/dL Albumin 4.2 (3.5-5.0) g/dL 10/10/18 Range/Units 05:30 WBC (3.8-10.6) k/uL RBC (3.80-5.40) m/uL Hgb (11.4-16.0) gm/dL Hct (34.0-46.0) % MCV (80.0-100.0) fL MCH (25.0-35.0) pg MCHC (31.0-37.0) g/dL RDW (11.5-15.5) % Plt Count (150-450) k/uL Neutrophils % % Lymphocytes % % Monocytes % % Eosinophils % % Basophils % % Neutrophils # (1.3-7.7) k/uL Lymphocytes # (1.0-4.8) k/uL Monocytes # (0-1.0) k/uL Eosinophils # (0-0.7) k/uL Basophils # (0-0.2) k/uL PT (9.0-12.0) sec INR (<1.2) APTT (22.0-30.0) sec Sodium (137-145) mmol/L Potassium (3.5-5.1) mmol/L Chloride (98-107) mmol/L Carbon Dioxide (22-30) mmol/L Anion Gap mmol/L BUN (7-17) mg/dL Creatinine (0.52-1.04) mg/dL Est GFR (CKD-EPI)AfAm (>60 ml/min/1.73 sqM) Est GFR (CKD-EPI)NonAf (>60 ml/min/1.73 sqM) Glucose (74-99) mg/dL Calcium (8.4-10.2) mg/dL Magnesium (1.6-2.3) mg/dL Total Bilirubin (0.2-1.3) mg/dL AST (14-36) U/L ALT (9-52) U/L Alkaline Phosphatase (38-126) U/L Troponin I <0.012 (0.000-0.034) ng/mL Total Protein (6.3-8.2) g/dL Albumin (3.5-5.0) g/dL Critical Care Time Critical Care Time: Yes (30 minutes) Disposition Clinical Impression: Atrial fibrillation with RVR Disposition: ADMITTED IP TO THIS HOSP Condition: Fair
--- NOTE | 2018-10-10 05:41 | XR ---
EXAM: XR Chest, 1 View CLINICAL HISTORY: ITS.REASON XR Reason: dysrhythmia TECHNIQUE: Frontal view of the chest. COMPARISON: 09/23/2016 FINDINGS: Lungs: Diminished lung volumes, similar to the previous exam. No focal consolidation. Pleural space: No large pleural effusion or pneumothorax. Heart: The cardiac silhouette is thought to be stable and accentuated by portable technique. Mediastinum: The mediastinal contours are unremarkable. The trachea is midline. Bones/joints: Unremarkable. IMPRESSION: Diminished lung volumes, similar to the previous exam. No focal consolidation.
[2018-10-10 05:51] LABS: Basophils # (A) 0.1 k/uL (0-0.2); Basophils % (A) 1 %; Eosinophils # (A) 0.2 k/uL (0-0.7); Eosinophils % (A) 2 %; HCT 35.5 % (34.0-46.0); HGB 11.4 gm/dL (11.4-16.0); Lymphocytes % (A) 24 %; MCHC 32.1 g/dL (31.0-37.0); MCV 84.1 fL (80.0-100.0); Mean Platelet Volume 10.4; Monocytes # (A) 0.5 k/uL (0-1.0); Monocytes % (A) 5 %; Neutrophils # (A) 5.5 k/uL (1.3-7.7); Neutrophils % (A) 66 %; Platelet Count 148 k/uL (150-450); RBC 4.21 m/uL (3.80-5.40); WBC 8.4 k/uL (3.8-10.6)
[2018-10-10 05:57] LABS: INR 0.9 (<1.2); Partial Thromboplastin Time 22.4 sec (22.0-30.0); Prothrombin Time 9.5 sec (9.0-12.0)
[2018-10-10 05:58] LABS: ALT 44 U/L (9-52); AST 36 U/L (14-36); African American GFR (CKD) >90 (>60 ml/min/1.73 sqM); Albumin 4.2 g/dL (3.5-5.0); Alkaline Phosphatase 36 U/L (38-126); Anion Gap 11 mmol/L; Blood Urea Nitrogen 14 mg/dL (7-17); Carbon Dioxide 24 mmol/L (22-30); Chloride 104 mmol/L (98-107); Glucose 171 mg/dL (74-99); Magnesium 1.8 mg/dL (1.6-2.3); Potassium 4.2 mmol/L (3.5-5.1); Sodium 139 mmol/L (137-145); Total Bilirubin 0.4 mg/dL (0.2-1.3); Total Protein 7.2 g/dL (6.3-8.2)
[2018-10-10] MEDS ORDERED: MAGNESIUM SULFATE-D5W PMX 1 GM in DEXTROSE/WATER 1 100ML.BAG IVPB ONE (06:26)
[2018-10-10] MEDS ORDERED: NITROGLYCERIN SL TABS 0.4 MG TAB SUBLINGUAL PRN (06:31)
[2018-10-10] MEDS ORDERED: ALPRAZolam 1 MG TAB PO PRN (06:33)
[2018-10-10] MEDS ORDERED: FLECAINIDE 50 MG TAB PO PRN (06:33)
[2018-10-10] MEDS ORDERED: HEPARIN SODIUM,PORCINE 5,000 UNIT/ML 1 ML VIAL IV ONE (06:40)
[2018-10-10] MEDS ORDERED: HEPARIN SODIUM,PORCINE 5,000 UNIT/ML 1 ML VIAL IV PRN (06:40)
[2018-10-10] MEDS: HEPARIN SOD,PORK IN 0.45% NACL 25,000 UNIT in 0.45% NACL 1 250ML.BAG IV SCH ×2 (07:07→22:24)
[2018-10-10] MEDS: SODIUM CHLORIDE 0.9% 1,000 ML IV SCH ×3 (07:14→22:23)
[2018-10-10] MEDS ORDERED: RIVAROXABAN 20 MG TAB PO SCH (09:00)
[2018-10-10] MEDS: FERROUS SULFATE 325 MG TAB PO SCH ×2 (11:50→20:12)
[2018-10-10] MEDS: ACETAMINOPHEN TAB 325 MG TAB PO PRN ×2 (11:51→20:14)
[2018-10-10] MEDS: METOPROLOL SUCCINATE (ER) 50 MG TAB.ER.24H PO SCH (11:51)
--- NOTE | 2018-10-10 12:08 | P.HPIM ---
History of Present Illness This is a pleasant 48 years old female with past medical history of atrial fibrillation, hypertension, anemia, depression/anxiety. Presents because of palpitation and lightheadedness which started 1:00 in the morning while she was taking a bath. No chest pain or dyspnea. No change in urine or bowel habits. No fever. No headache. No coughing. Patient states she has recent history of D&C for her heavy vagina bleeding done last 10/08/2018 as per patient. Patient declined to do test. Risks benefits and alternatives are explained. On admission she was tachycardic at 158, rest of [place] looks stable. Labs reviewed, showing unremarkable CBC, BMP and liver enzymes. Troponin is negative. EKG showing atrial fibrillation's with RVR at 149. Chest x-ray: No focal consolidation. On admission patient was started on Cardizem drip and heparin drip. Review of Systems CONSTITUTIONAL: No fever, no malaise, no fatigue. HEENT: No recent visual problems or hearing problems. Denied any sore throat. CARDIOVASCULAR: No orthopnea, PND, no palpitations, no syncope. PULMONARY: No shortness of breath, no cough, no hemoptysis. GASTROINTESTINAL: No diarrhea, no nausea, no vomiting, no abdominal pain. Normoactive bowel sounds. NEUROLOGICAL: No headaches, no weakness, no numbness. HEMATOLOGICAL: Denies any bleeding or petechiae. GENITOURINARY: Denies any burning micturition, frequency, or urgency. MUSCULOSKELETAL/RHEUMATOLOGICAL: Denies any joint pain, swelling, or any muscle pain. ENDOCRINE: Denies any polyuria or polydipsia. Past Medical History Past Medical History: Atrial Fibrillation, Hypertension Additional Past Medical History / Comment(s): anemia History of Any Multi-Drug Resistant Organisms: None Reported Past Surgical History: Section Additional Past Surgical History / Comment(s): D &C 09/2018 Past Anesthesia/Blood Transfusion Reactions: No Reported Reaction Smoking Status: Never smoker - Past Family History Father Family Medical History: Hyperlipidemia, Osteoarthritis (OA) Mother Family Medical History: Asthma Additional Family Medical History / Comment(s): GRAVES DISEASE. PT'S MOM IN HER SLEEP AT AGE OF 63 Medications and Allergies Home Medications Medication Instructions Recorded Confirmed Type Triamterene/Hydrochlorothiazid 1 tab PO DAILY 05/03/15 10/10/18 History [Triamterene-Hctz 37.5-25 mg Tb] Rivaroxaban [Xarelto] 20 mg PO DAILY #30 tab 05/04/15 10/10/18 Rx ALPRAZolam [Xanax] 1 mg PO DAILY PRN 08/19/18 10/10/18 History Ferrous Sulfate [Feosol] 325 mg PO BID 08/19/18 10/10/18 History Flecainide Acetate 100 mg PO DAILY PRN 08/19/18 10/10/18 History Metoprolol Succinate (ER) [Toprol 50 mg PO DAILY 08/19/18 10/10/18 History XL] Acetaminophen Tab [Tylenol Tab] 1,000 mg PO Q6HR PRN 10/10/18 10/10/18 History Cetirizine HCl [Zyrtec] 10 mg PO DAILY PRN 10/10/18 10/10/18 History Ergocalciferol [Vitamin D2] 50,000 unit PO WE 10/10/18 10/10/18 History Ibuprofen [Motrin] 800 mg PO Q6H PRN 10/10/18 10/10/18 History Magnesium Chloride [Slow Mag] 64 mg PO DAILY 10/10/18 10/10/18 History Allergies Allergy/AdvReac Type Severity Reaction Status Date / Time venom-honey bee Allergy Swelling Verified 10/10/18 07:32 [bee venom (honey bee)] lisinopril AdvReac Cough Verified 10/10/18 07:32 venlafaxine [From Effexor] AdvReac Hallucinati Verified 10/10/18 07:32 ons Physical Exam Vitals: Vital Signs Temp Pulse Pulse Resp BP BP Pulse Ox 10/10/18 10:40 97.8 F 85 20 120/84 98 10/10/18 10:32 97.8 F 10/10/18 10:00 109 H 16 130/84 97 10/10/18 09:00 102 H 15 133/78 96 10/10/18 08:00 109 H 16 107/88 95 10/10/18 07:20 129 H 18 133/101 96 10/10/18 07:00 128 H 14 147/99 96 10/10/18 06:08 131 H 18 118/99 97 10/10/18 05:21 150 H 18 125/95 96 10/10/18 04:36 147 H 10/10/18 04:27 98 F 158 H 22 131/119 98 Intake and Output 10/09/18 10/10/18 10/10/18 22:59 06:59 14:59 Other: Weight 158.757 kg GENERAL: The patient is alert and oriented x3, not in any acute distress. Obese HEENT: Pupils are round and equally reacting to light. EOMI. No scleral icterus. No conjunctival pallor. Normocephalic, atraumatic. No pharyngeal erythema. No thyromegaly. CARDIOVASCULAR: S1 and S2 present. No murmurs, rubs, or gallops. PULMONARY: Chest is clear to auscultation, no wheezing or crackles. ABDOMEN: Soft, nontender, nondistended, normoactive bowel sounds. No palpable organomegaly. MUSCULOSKELETAL: No joint swelling or deformity. EXTREMITIES: No cyanosis, clubbing, or pedal edema. NEUROLOGICAL: Gross neurological examination did not reveal any focal deficits. SKIN: No rashes. Results CBC & Chem 7: 10/10/18 05:30 10/10/18 05:30 Labs: Abnormal Lab Results - Last 24 Hours (Table) 10/10/18 10/10/18 Range/Units 05:30 05:30 Plt Count 148 L (150-450) k/uL Glucose 171 H (74-99) mg/dL Alkaline Phosphatase 36 L (38-126) U/L Assessment and Plan Assessment: Atrial fibrillation's with RVR Essential hypertension History of depression, not in active tissue Plan: This is a pleasant 48 years female who presents with A. fib and RVR. Continue with Cardizem and heparin Labs and medication were reviewed.. Continue same treatment. Continue with symptomatic treatment. Resume home medication. Monitor lytes and vitals. DVT and GI prophylaxis. Further recommendations of the clinical course of the patient DVT prophylaxis: Subcutaneous heparin GI Prophylaxis: Pepcid PT/OT: Pending Prognosis is guarded
[2018-10-10] MEDS: TRIAMTERENE-HCTZ 37.5-25MG 1 EACH TAB PO SCH (12:14)
--- NOTE | 2018-10-10 13:02 | P.CRDCN ---
History of Present Illness History of present illness: This is a pleasant 48-year-old female past medical history significant for paroxysmal atrial fibrillation on long-term anticoagulation, hypertension and morbid obesity. She follows in the office with Dr. Andrea. We will see her in consultation secondary to atrial fibrillation rapid ventricular response. She states last night while lying down trying to sleep she can fill her heart starting to raise floor. She also felt extremely lightheaded and woozy like she was going to pass out. Upon arrival to the emergency department EKG was obtained revealing a fibrillation with rapid ventricular response. She takes I at home as needed when she feels palpitations she did take flecainide at home prior to arrival with no significant response. She was given another dose in the emergency department however continued to remain in atrial fibrillation. She has been initiated on a Cardizem infusion. She denies chest discomfort, shortness of breath, nausea, vomiting or diaphoresis. Chest x-ray reveals diminished lung volumes with no focal consolidation. Laboratory data reviewed, WBC 8.4, hemoglobin 11.4, platelets 148, sodium 139, potassium 4.2, creatinine 0.59, magnesium 1.8, cardiac enzymes negative 1. Current cardiac medications include Toprol 50 mg daily, Xarelto 20 mg daily, triamterene/HCTZ 37.5/25 mg daily and flecainide 100 mg when necessary. At the time of my exam: CONSTITUTIONAL: Denies fever. Denies chills. EYES: Denies blurred vision. Denies vision changes. Denies eye pain. EARS, NOSE, MOUTH & THROAT: Denies headache. Denies sore throat. Denies ear pain. CARDIOVASCULAR: Denies chest pain. Denies shortness of breath. Denies orthopnea. Denies PND. Complains of palpitations. RESPIRATORY: Denies cough. GASTROINTESTINAL: Denies abdominal pain. Denies diarrhea. Denies constipation. Denies nausea. Denies vomiting. MUSCULOSKELETAL: Denies myalgias. INTEGUMENTARY: Denies pruitis. Denies rash. NEUROLOGIC: Denies numbness. Denies tingling. Denies weakness. PSYCHIATRIC: Denies anxiety. Denies depression. ENDOCRINE: Denies fatigue. Denies weight change. Denies polydipsia. Denies polyurina. GENITOURINARY: Denies burning, hematuria or urgency with micturation. HEMATOLOGIC: Denies history of anemia. Denies bleeding. Blood pressure 120/84 rate fluctuating between 85-110 GENERAL: This is a 48-year-old female in no apparent distress at the time of my examination. Morbidly obese. HEENT: Head is atraumatic, normocephalic. Pupils are equal, round. Sclerae anicteric. Conjunctivae are clear. Mucous membranes of the mouth are moist. Neck is supple. There is no jugular venous distention. No carotid bruit is heard. LUNGS: Clear to auscultation no wheezes, rales or rhonchi. No chest wall tenderness is noted on palpation or with deep breathing. HEART: Regular rate and rhythm without murmurs, rubs or gallops. S1 and S2 heard. ABDOMEN: Soft, nontender. Bowel sounds are heard. No organomegaly noted. EXTREMITIES: No evidence of peripheral edema and no calf tenderness noted. VASCULAR: Radial and dorsalis pedis pulses palpated, no evidence of clubbing. NEUROLOGIC: Patient is awake, alert and oriented x3. ASSESSMENT Paroxysmal atrial fibrillation with rapid ventricular response Hypertension Morbid obesity PLAN Continue Cardizem infusion and ongoing telemetry monitoring. If the patient does not spontaneously convert to sinus mechanism we will consider NATASHA/cardioversion. Nothing by mouth after midnight. Initiate on flecainide 150 mg by mouth twice a day. Thank you kindly for this consultation. Nurse Practitioner note has been reviewed, I agree with a documented findings and plan of care. Patient was seen and examined. Past Medical History Past Medical History: Atrial Fibrillation, Hypertension Additional Past Medical History / Comment(s): anemia History of Any Multi-Drug Resistant Organisms: None Reported Past Surgical History: Section Additional Past Surgical History / Comment(s): D &C 09/2018 Past Anesthesia/Blood Transfusion Reactions: No Reported Reaction Smoking Status: Never smoker - Past Family History Father Family Medical History: Hyperlipidemia, Osteoarthritis (OA) Mother Family Medical History: Asthma Additional Family Medical History / Comment(s): GRAVES DISEASE. PT'S MOM IN HER SLEEP AT AGE OF 63 Medications and Allergies Home Medications Medication Instructions Recorded Confirmed Type Triamterene/Hydrochlorothiazid 1 tab PO DAILY 05/03/15 10/10/18 History [Triamterene-Hctz 37.5-25 mg Tb] Rivaroxaban [Xarelto] 20 mg PO DAILY #30 tab 05/04/15 10/10/18 Rx ALPRAZolam [Xanax] 1 mg PO DAILY PRN 08/19/18 10/10/18 History Ferrous Sulfate [Feosol] 325 mg PO BID 08/19/18 10/10/18 History Flecainide Acetate 100 mg PO DAILY PRN 08/19/18 10/10/18 History Metoprolol Succinate (ER) [Toprol 50 mg PO DAILY 08/19/18 10/10/18 History XL] Acetaminophen Tab [Tylenol Tab] 1,000 mg PO Q6HR PRN 10/10/18 10/10/18 History Cetirizine HCl [Zyrtec] 10 mg PO DAILY PRN 10/10/18 10/10/18 History Ergocalciferol [Vitamin D2] 50,000 unit PO WE 10/10/18 10/10/18 History Ibuprofen [Motrin] 800 mg PO Q6H PRN 10/10/18 10/10/18 History Magnesium Chloride [Slow Mag] 64 mg PO DAILY 10/10/18 10/10/18 History Allergies Allergy/AdvReac Type Severity Reaction Status Date / Time venom-honey bee Allergy Swelling Verified 10/10/18 07:32 [bee venom (honey bee)] lisinopril AdvReac Cough Verified 10/10/18 07:32 venlafaxine [From Effexor] AdvReac Hallucinati Verified 10/10/18 07:32 ons Physical Exam Vitals: Vital Signs Temp Pulse Pulse Resp BP BP Pulse Ox 10/10/18 10:40 97.8 F 85 20 120/84 98 10/10/18 10:32 97.8 F 10/10/18 10:00 109 H 16 130/84 97 10/10/18 09:00 102 H 15 133/78 96 10/10/18 08:00 109 H 16 107/88 95 10/10/18 07:20 129 H 18 133/101 96 10/10/18 07:00 128 H 14 147/99 96 10/10/18 06:08 131 H 18 118/99 97 10/10/18 05:21 150 H 18 125/95 96 10/10/18 04:36 147 H 10/10/18 04:27 98 F 158 H 22 131/119 98 Intake and Output 10/09/18 10/10/1819 22:59 06:59 14:59 Intake Total 100 Balance 100 Intake: Oral 100 Other: Weight 158.757 kg Results 10/10/18 05:30 10/10/18 05:30 Cardiac Enzymes 10/10/18 10/10/18 Range/Units 05:30 05:30 AST 36 (14-36) U/L Troponin I <0.012 (0.000-0.034) ng/mL Coagulation 10/10/18 Range/Units 05:30 PT 9.5 (9.0-12.0) sec APTT 22.4 (22.0-30.0) sec CBC 10/10/18 Range/Units 05:30 WBC 8.4 (3.8-10.6) k/uL RBC 4.21 (3.80-5.40) m/uL Hgb 11.4 (11.4-16.0) gm/dL Hct 35.5 (34.0-46.0) % Plt Count 148 L (150-450) k/uL Comprehensive Metabolic Panel 10/10/18 Range/Units 05:30 Sodium 139 (137-145) mmol/L Potassium 4.2 (3.5-5.1) mmol/L Chloride 104 (98-107) mmol/L Carbon Dioxide 24 (22-30) mmol/L BUN 14 (7-17) mg/dL Creatinine 0.59 (0.52-1.04) mg/dL Glucose 171 H (74-99) mg/dL Calcium 9.0 (8.4-10.2) mg/dL AST 36 (14-36) U/L ALT 44 (9-52) U/L Alkaline Phosphatase 36 L (38-126) U/L Total Protein 7.2 (6.3-8.2) g/dL Albumin 4.2 (3.5-5.0) g/dL Current Medications Generic Name Dose Route Start Last Admin Trade Name Freq PRN Reason Stop Dose Admin Acetaminophen 650 mg 10/10/18 11:18 10/10/18 11:51 Tylenol Tab PO 650 mg Q6HR PRN Administration Fever and/ or Pain Alprazolam 1 mg 10/10/18 06:33 Xanax PO DAILY PRN Anxiety Aspirin 325 mg 10/11/18 09:00 Aspirin PO DAILY RHYS Ferrous Sulfate 325 mg 10/10/18 09:00 10/10/18 11:50 Feosol PO 325 mg BID RHYS Administration Flecainide Acetate 100 mg 10/10/18 06:33 Tambocor PO DAILY PRN AFIB Heparin Sodium (Porcine) 0 unit 10/10/18 06:40 Heparin IV PER PROTOCOL PRN Low PTT Protocol Diltiazem HCl 125 mg/ Sodium 125 mls @ 5 mls/hr 10/10/18 04:45 10/10/18 07:06 Chloride IV 5 mg/hr .Q24H RHYS 5 mls/hr Administration 5 MG/HR Sodium Chloride 1,000 mls @ 100 mls/hr 10/10/18 06:45 10/10/18 07:14 Saline 0.9% IV 100 mls/hr .Q10H RHYS Administration Heparin Sodium/Sodium Chloride 250 mls @ 10.002 mls/hr 10/10/18 06:45 10/10/18 07:07 25,000 unit/ Sodium Chloride IV 6.3 units/kg/hr .Q24H RHYS 10.002 mls/hr Administration Protocol 6.3 UNITS/KG/HR Metoprolol Succinate 50 mg 10/10/18 09:00 10/10/18 11:51 Toprol Xl PO 50 mg DAILY RHYS Administration Nitroglycerin 0.4 mg 10/10/18 06:31 Nitrostat SUBLINGUAL Q5M PRN Chest Pain Triamterene/HCTZ 1 each 10/10/18 09:00 10/10/18 12:14 Maxzide-25 PO 1 each DAILY RHYS Administration Intake and Output 10/09/18 10/10/18 10/10/18 22:59 06:59 14:59 Intake Total 100 Balance 100 Intake: Oral 100 Other: Weight 158.757 kg 10/10/18 05:30 10/10/18 05:30
[2018-10-10] MEDS: FLECAINIDE 50 MG TAB PO SCH (20:14)
[2018-10-10 23:44] VITALS: RESP 18
[2018-10-11 03:36] LABS: Cholesterol 121 mg/dL (<200); HDL Cholesterol 53 mg/dL (40-60); LDL Cholesterol,Calculated 35 mg/dL (0-99); Triglycerides 165 mg/dL (<150)
[2018-10-11 03:44] LABS: Basophils # (A) 0.1 k/uL (0-0.2); Basophils % (A) 1 %; Eosinophils # (A) 0.2 k/uL (0-0.7); Eosinophils % (A) 2 %; HCT 31.5 % (34.0-46.0); HGB 10.3 gm/dL (11.4-16.0); Lymphocytes # (A) 1.8 k/uL (1.0-4.8); Lymphocytes % (A) 24 %; MCHC 32.7 g/dL (31.0-37.0); MCV 85.5 fL (80.0-100.0); Mean Platelet Volume 10.2; Monocytes # (A) 0.4 k/uL (0-1.0); Monocytes % (A) 6 %; Neutrophils # (A) 4.7 k/uL (1.3-7.7); Neutrophils % (A) 64 %; Platelet Count 149 k/uL (150-450); RBC 3.68 m/uL (3.80-5.40); RDW 14.2 % (11.5-15.5); WBC 7.4 k/uL (3.8-10.6)
[2018-10-11] MEDS: FERROUS SULFATE 325 MG TAB PO SCH (08:11)
[2018-10-11] MEDS: FLECAINIDE 50 MG TAB PO SCH (08:11)
[2018-10-11] MEDS: METOPROLOL SUCCINATE (ER) 50 MG TAB.ER.24H PO SCH (08:11)
[2018-10-11] MEDS: TRIAMTERENE-HCTZ 37.5-25MG 1 EACH TAB PO SCH (08:12)
[2018-10-11 08:28] VITALS: BP 142/73; PULSE 68; TEMP 98
[2018-10-11] MEDS ORDERED: ASPIRIN 325 MG TAB PO SCH (09:00)
--- NOTE | 2018-10-11 13:30 | P.PN ---
Subjective Progress Note Date: 10/11/18 This is a pleasant 48-year-old female past medical history significant for paroxysmal atrial fibrillation on long-term anticoagulation, hypertension and morbid obesity. She follows in the office with Dr. Mcdaniel. We had seen her in consultation secondary to atrial fibrillation rapid ventricular response. The patient had been on xarelto, but underwent a D&C on Thursday and has been off it since that time. She was initiated here on IV heparin as well as Cardizem. She converted to normal sinus rhythm and remains in a normal sinus rhythm this morning. Hemodynamically stable. She did have some vaginal spotting, so for this reason we will discharge her home on current medications however continuing to hold her xarelto at this time. She will follow-up with Dr. Mcdaniel as well as her TELEVISION SERVICE ENGINEER specialist next week. Objective - Vital Signs Vital signs: Vital Signs Temp 98 F 10/11/18 08:00 Pulse 68 10/11/18 08:00 Resp 18 10/11/18 08:00 BP 142/73 10/11/18 08:00 Pulse Ox 98 10/11/18 08:00 Intake & Output 10/10/18 10/11/18 10/11/18 18:59 06:59 18:59 Intake Total 641.513 422.320 180 Balance 641.513 422.320 180 Weight 166.9 kg Intake: IV 40 Heparin Sod,Pork in 0.45% 40 NaCl 25,000 unit In 0.45 % NaCl 1 250ml.bag @ 6.3 UNITS/KG/HR 10.002 mls/hr IV .Q24H RHYS Rx#: [id number] Intake, IV Titration 501.513 182.320 Amount Diltiazem 125 mg In 33.833 Sodium Chloride 0.9% 100 ml @ 5 MG/HR 5 mls/hr IV .Q24H RHYS Rx#:[id number] Heparin Sod,Pork in 0.45% 67.68 182.320 NaCl 25,000 unit In 0.45 % NaCl 1 250ml.bag @ 6.3 UNITS/KG/HR 10.002 mls/hr IV .Q24H RHYS Rx#: [id number] Sodium Chloride 0.9% 1, 400 000 ml @ 100 mls/hr IV . Q10H RHYS Rx#:[id number] Oral 100 240 180 Other: # Voids 1 - Exam GENERAL: This is a 48-year-old female in no apparent distress at the time of my examination. Morbidly obese. HEENT: Head is atraumatic, normocephalic. Pupils are equal, round. Sclerae anicteric. Conjunctivae are clear. Mucous membranes of the mouth are moist. Neck is supple. There is no jugular venous distention. No carotid bruit is heard. LUNGS: Clear to auscultation no wheezes, rales or rhonchi. No chest wall tenderness is noted on palpation or with deep breathing. HEART: Regular rate and rhythm without murmurs, rubs or gallops. S1 and S2 heard. ABDOMEN: Soft, nontender. Bowel sounds are heard. No organomegaly noted. EXTREMITIES: No evidence of peripheral edema and no calf tenderness noted. VASCULAR: Radial and dorsalis pedis pulses palpated, no evidence of clubbing. NEUROLOGIC: Patient is awake, alert and oriented x3. - Labs CBC & Chem 7: 10/11/18 03:14 10/10/18 05:30 Labs: Abnormal Lab Results - Last 24 Hours (Table) 10/11/18 10/11/18 10/11/18 Range/Units 03:14 03:14 03:14 RBC 3.68 L (3.80-5.40) m/uL Hgb 10.3 L (11.4-16.0) gm/dL Hct 31.5 L (34.0-46.0) % Plt Count 149 L (150-450) k/uL APTT 31.4 H (22.0-30.0) sec Triglycerides 165 H (<150) mg/dL Assessment and Plan Plan: ASSESSMENT and plan #1 Paroxysmal atrial fibrillation with rapid ventricular response #2 Hypertension #3 Morbid obesity #4 recent D&C Plan Patient is in normal sinus rhythm this morning, we'll discontinue the IV heparin and continue to hold her xarelto because of evidence of vaginal spotting. She will have a follow-up appointment in the office with Dr. Mcdaniel as well as her TELEVISION SERVICE ENGINEER specialist. DNP note has been reviewed, I agree with a documented findings and plan of care. Patient was seen and examined.
--- NOTE | 2018-10-21 18:25 | P.DS ---
Providers Date of admission: 10/10/18 06:49 Attending physician: Bill Page Consults: 10/10/18 06:31 Consult Physician Urgent Consulting Provider: Harvey Dutton Consult Reason/Comments: Atrial fibrillation with rapid ventricular rate Do you want consulting provider notified?: Already Contacted Primary care physician: Joselyn ValerioVA hospital Course: Diagnoses: Atrial fibrillation's with RVR Essential hypertension recent history of D&C for her heavy vagina bleeding done last 10/08/2018 as per patient. Patient is still have some vaginal bleeding while on heparin drip. History of depression, not in active tissue Chronic low back pain Obesity Hospital course: This is a pleasant 48 years old female with past medical history of atrial fibrillation, hypertension, anemia, depression/anxiety. Presents because of atrial fibrillation with rapid ventricular rate. On admission she was tachycardic at 158. Her rate has been controlled with Cardizem drip and heparin drip. Patient converted spontaneously to normal sinus rhythm. Patient has been evaluated by blocker polishing and cleared her for discharge today. Patient was taking Xarelto prior to admission however it was held because she had recent D&C for vaginal bleeding and patient was instructed by her [employer] DIVISION OFFICER doctor to hold Xarelto for 2 weeks. Patient was started on heparin drip while she was in-house she had some vaginal bleeding, but this morning and her hemoglobin dropped slightly from 11.4 down to 10.3, vitals are stable. Discussed the case with cardiology team, they recommended to keep holding Xarelto and patient to follow up with her [employer] clinic in 1 week as well as her blocker polishing Dr. Andrea as instructed. Patient informed about this recommendation. Patient is made aware that holding Xarelto putting her at risk of stroke and she verbalized understanding and acceptance. Patient was instructed to continue on aspirin instead. On the day of discharge patient denies symptoms. She denies chest pain or dyspnea. No abdominal pain. No nausea vomiting. No change in urine or bowel habits. No fever. No headache or neurological symptoms Problems and management plan were discussed with the patient and he verbalized understanding and acceptance Patient was found stable and can be discharged home however he needs follow-up as an outpatient. Patient was instructed to follow up with her PCP in one week, with blocker polishing in [employer] [facility] clinic in 1 week as well. Patient verbalized understanding and acceptance. pt agrees with appointments made for her with her pcp and blocker polishing and states she will follow up Gen: patient is a AAOx3, no distress CVS: S1-S2, RRR, no murmur Lungs: B/L CTA, no wheezing Abdomen: soft, no distention, no tenderness, positive bowel sounds Extremity: no leg edema or induration Time spent more than 35 minutes Patient Condition at Discharge: Stable Plan - Discharge Summary New Discharge Prescriptions: New Aspirin 325 mg PO DAILY #30 tab Flecainide [Tambocor] 150 mg PO Q12HR #180 tab Continue Triamterene/Hydrochlorothiazid [Triamterene-Hctz 37.5-25 mg Tb] 1 tab PO DAILY Ferrous Sulfate [Feosol] 325 mg PO BID Metoprolol Succinate (ER) [Toprol XL] 50 mg PO DAILY ALPRAZolam [Xanax] 1 mg PO DAILY PRN PRN Reason: Anxiety Acetaminophen Tab [Tylenol] 1,000 mg PO Q6HR PRN PRN Reason: Pain Cetirizine HCl [Zyrtec] 10 mg PO DAILY PRN PRN Reason: Allergy Symptoms Ergocalciferol [Vitamin D2 (DRISDOL)] 50,000 unit PO WE Ibuprofen [Motrin] 800 mg PO Q6H PRN PRN Reason: Pain Magnesium Chloride [Slow-Mag] 64 mg PO DAILY Discontinued Rivaroxaban [Xarelto] 20 mg PO DAILY #30 tab Discharge Medication List Triamterene/Hydrochlorothiazid [Triamterene-Hctz 37.5-25 mg Tb] 1 tab PO DAILY 05/03/15 [History] ALPRAZolam [Xanax] 1 mg PO DAILY PRN 08/19/18 [History] Ferrous Sulfate [Feosol] 325 mg PO BID 08/19/18 [History] Metoprolol Succinate (ER) [Toprol XL] 50 mg PO DAILY 08/19/18 [History] Acetaminophen Tab [Tylenol] 1,000 mg PO Q6HR PRN 10/10/18 [History] Cetirizine HCl [Zyrtec] 10 mg PO DAILY PRN 10/10/18 [History] Ergocalciferol [Vitamin D2 (DRISDOL)] 50,000 unit PO WE 10/10/18 [History] Ibuprofen [Motrin] 800 mg PO Q6H PRN 10/10/18 [History] Magnesium Chloride [Slow-Mag] 64 mg PO DAILY 10/10/18 [History] Aspirin 325 mg PO DAILY #30 tab 10/11/18 [Rx] Flecainide [Tambocor] 150 mg PO Q12HR #180 tab 10/11/18 [Rx] Follow up Appointment(s)/Referral(s): Stephen Mcdaniel MD [STAFF PHYSICIAN] - 10/20/18 1:30 pm (Keep echo for October 15 at 3:15. ) Joselyn Dougherty III, MD [Primary Care Provider] - 10/14/18 6:00 pm ( with MARTELL Carvalho) Patient Instructions/Handouts: A-fib (Atrial Fibrillation) (DC) Activity/Diet/Wound Care/Special Instructions: Cardiac diet Activity is limited till you see your doctor Recommend follow-up with her [employer] doctor. Please call to make an appointment in 1 week. Discharge Disposition: HOME SELF-CARE
== END 2018-10-11 12:04 | disposition home or self-care (01) | DRG 309 ==
LOC: EC 04:17 → 3SCARD 06:49
PROVIDERS: ADMIT Hospitalist; ATTEND Hospitalist
DX: I48.0 Paroxysmal atrial fibrillation (principal); Z68.43 Body mass index [BMI] 50.0-59.9, adult; E66.01 Morbid (severe) obesity due to excess calories; I10 Essential (primary) hypertension; F32.9 Major depressive disorder, single episode, unspecified; F41.9 Anxiety disorder, unspecified; N93.9 Abnormal uterine and vaginal bleeding, unspecified; Z79.899 Other long term (current) drug therapy; Z79.01 Long term (current) use of anticoagulants; Z86.59 Personal history of other mental and behavioral disorders; Z82.5 Family history of asthma and other chronic lower respiratory diseases; Z88.8 Allergy status to other drugs, medicaments and biological substances; Z91.030 Bee allergy status; Z86.2 Personal history of diseases of the blood and blood-forming organs and certain disorders involving the immune mechanism; Z98.891 History of uterine scar from previous surgery; Z83.49 Family history of other endocrine, nutritional and metabolic diseases; Z82.61 Family history of arthritis
CPT/HCPCS: 36415; 71045; 80053; 80061; 83735; 84443; 84484; 85025; 85610; 85730; 93005; 96365; 96366; 96368; 96376; 99291

== ENCOUNTER 2019-07-15 07:45 | Observation (INO) | payer BC ==
--- NOTE | 2019-07-15 08:00 | ED ---
General Adult HPI - General Chief complaint: Arrhythmia/Palpitations Stated complaint: tachycardia Time Seen by Provider: 07/15/19 07:51 Source: patient, EMS, RN notes reviewed Mode of arrival: EMS Limitations: no limitations - History of Present Illness Initial comments: Patient is a pleasant 49-year-old female presenting to the emergency Department with palpitations. Onset was around 1 AM. Patient states symptoms are waxing and waning. Patient has palpitations. Patient states there is some associated minimal discomfort in her chest. Patient also feels slightly short of breath. Patient has had cold sweats. Patient does have history of similar symptoms previously associated with atrial fibrillation. EMS has started amiodarone is approximately half infused at this time. Patient also feels somewhat lightheaded and nauseated. - Related Data Home Medications Medication Instructions Recorded Confirmed Triamterene/Hydrochlorothiazid 1 tab PO DAILY 05/03/15 10/10/18 [Triamterene-Hctz 37.5-25 mg Tb] ALPRAZolam [Xanax] 1 mg PO DAILY PRN 08/19/18 10/10/18 Ferrous Sulfate [Feosol] 325 mg PO BID 08/19/18 10/10/18 Metoprolol Succinate (ER) [Toprol 50 mg PO DAILY 08/19/18 10/10/18 XL] Acetaminophen Tab [Tylenol] 1,000 mg PO Q6HR PRN 10/10/18 10/10/18 Cetirizine HCl [Zyrtec] 10 mg PO DAILY PRN 10/10/18 10/10/18 Ergocalciferol [Vitamin D2 50,000 unit PO WE 10/10/18 10/10/18 (DRISDOL)] Ibuprofen [Motrin] 800 mg PO Q6H PRN 10/10/18 10/10/18 Magnesium Chloride [Slow-Mag] 64 mg PO DAILY 10/10/18 10/10/18 Previous Rx's Medication Instructions Recorded Aspirin 325 mg PO DAILY #30 tab 10/11/18 Flecainide [Tambocor] 150 mg PO Q12HR #180 tab 10/11/18 Allergies Allergy/AdvReac Type Severity Reaction Status Date / Time venom-honey bee Allergy Swelling Verified 07/15/19 07:47 [bee venom (honey bee)] lisinopril AdvReac Cough Verified 07/15/19 07:47 venlafaxine [From Effexor] AdvReac Hallucinati Verified 07/15/19 07:47 ons Review of Systems ROS Statement: Those systems with pertinent positive or pertinent negative responses have been documented in the HPI. ROS Other: All systems not noted in ROS Statement are negative. Constitutional: Denies: fever Eyes: Denies: eye pain ENT: Denies: ear pain Respiratory: Reports: as per HPI. Denies: cough Cardiovascular: Reports: as per HPI, palpitations Gastrointestinal: Reports: nausea. Denies: vomiting Genitourinary: Denies: dysuria Musculoskeletal: Denies: back pain Skin: Denies: rash Psychiatric: Reports: anxiety Past Medical History Past Medical History: Atrial Fibrillation, Hypertension Additional Past Medical History / Comment(s): anemia History of Any Multi-Drug Resistant Organisms: None Reported Past Surgical History: Section Additional Past Surgical History / Comment(s): D &C 09/2018 Past Anesthesia/Blood Transfusion Reactions: No Reported Reaction Past Psychological History: Anxiety, Depression Smoking Status: Never smoker - Past Family History Father Family Medical History: Hyperlipidemia, Osteoarthritis (OA) Mother Family Medical History: Asthma Additional Family Medical History / Comment(s): GRAVES DISEASE. PT'S MOM IN HER SLEEP AT AGE OF 63 General Exam Limitations: no limitations General appearance: alert Head exam: Present: atraumatic Eye exam: Present: normal appearance Neck exam: Present: normal inspection Respiratory exam: Present: normal lung sounds bilaterally Cardiovascular Exam: Present: tachycardia Expanded Peripheral pulses: 1+: Radial (R), Radial (L), Posterior Tibialis (R), Posterior Tibialis (L), Dorsalis Pedis (R), Dorsalis Pedis (L) GI/Abdominal exam: Present: soft. Absent: tenderness Extremities exam: Present: normal inspection. Absent: pedal edema, calf tenderness Neurological exam: Present: alert Psychiatric exam: Present: normal affect, normal mood Skin exam: Present: diaphoretic Course Vital Signs 07/15/19 07/15/19 07:51 07:53 Temperature 97.9 F Pulse Rate 140 H 108 H Respiratory 18 18 Rate Blood Pressure 67/42 143/86 O2 Sat by Pulse 95 97 Oximetry - Reevaluation(s) Reevaluation #1: 07/15/19 07:58 Patient has converted with amiodarone that was started by EMS. Patient reevaluated and feels significantly better. Patient appears more comfortable. EKG #2 shows sinus tachycardia 108. KS 186. QRS 106. QT 316. QTC 423. Normal axis. Normal QRS. Lateral ST depression. EKG Findings - EKG Comments: EKG Findings:: Wide-complex tachycardia with a rate of 187. QRS 182. QT 300. QTc 5.9. Normal axis. Appearance of left bundle branch block with nonspecific ST-T. Medical Decision Making - Medical Decision Making Patient reevaluated and feeling much better. Heart rate 117. Repeat EKG ordered. Accu-Chek ordered. Case was discussed in detail with Dr. Oconnell, covering for Dr. Dougherty, who will admit. Patient is updated on results and plan. - Lab Data Result diagrams: 07/15/19 08:02 07/15/19 08:02 Lab Results 07/15/19 07/15/19 07/15/19 Range/Units 08:02 08:02 08:02 WBC 9.1 (3.8-10.6) k/uL RBC 4.82 (3.80-5.40) m/uL Hgb 13.9 (11.4-16.0) gm/dL Hct 41.1 (34.0-46.0) % MCV 85.3 (80.0-100.0) fL MCH 28.7 (25.0-35.0) pg MCHC 33.7 (31.0-37.0) g/dL RDW 13.0 (11.5-15.5) % Plt Count 170 (150-450) k/uL Neutrophils % 76 % Lymphocytes % 16 % Monocytes % 4 % Eosinophils % 1 % Basophils % 1 % Neutrophils # 6.9 (1.3-7.7) k/uL Lymphocytes # 1.5 (1.0-4.8) k/uL Monocytes # 0.4 (0-1.0) k/uL Eosinophils # 0.1 (0-0.7) k/uL Basophils # 0.1 (0-0.2) k/uL Manual Slide Review Performed Large Platelets Present PT 10.0 (9.0-12.0) sec INR 1.0 (<1.2) APTT 24.4 (22.0-30.0) sec Sodium 134 L (137-145) mmol/L Potassium 4.2 (3.5-5.1) mmol/L Chloride 103 (98-107) mmol/L Carbon Dioxide 19 L (22-30) mmol/L Anion Gap 12 mmol/L BUN 12 (7-17) mg/dL Creatinine 0.73 (0.52-1.04) mg/dL Est GFR (CKD-EPI)AfAm >90 (>60 ml/min/1.73 sqM) Est GFR (CKD-EPI)NonAf >90 (>60 ml/min/1.73 sqM) Glucose 296 H (74-99) mg/dL Calcium 9.0 (8.4-10.2) mg/dL Magnesium 1.8 (1.6-2.3) mg/dL Total Bilirubin 1.2 (0.2-1.3) mg/dL AST 29 (14-36) U/L ALT 26 (4-34) U/L Alkaline Phosphatase 29 L (38-126) U/L Troponin I (0.000-0.034) ng/mL Total Protein 7.0 (6.3-8.2) g/dL Albumin 4.0 (3.5-5.0) g/dL TSH 2.560 (0.465-4.680) mIU/L Free T4 1.52 (0.78-2.19) ng/dL 07/15/19 Range/Units 08:02 WBC (3.8-10.6) k/uL RBC (3.80-5.40) m/uL Hgb (11.4-16.0) gm/dL Hct (34.0-46.0) % MCV (80.0-100.0) fL MCH (25.0-35.0) pg MCHC (31.0-37.0) g/dL RDW (11.5-15.5) % Plt Count (150-450) k/uL Neutrophils % % Lymphocytes % % Monocytes % % Eosinophils % % Basophils % % Neutrophils # (1.3-7.7) k/uL Lymphocytes # (1.0-4.8) k/uL Monocytes # (0-1.0) k/uL Eosinophils # (0-0.7) k/uL Basophils # (0-0.2) k/uL Manual Slide Review Large Platelets PT (9.0-12.0) sec INR (<1.2) APTT (22.0-30.0) sec Sodium (137-145) mmol/L Potassium (3.5-5.1) mmol/L Chloride (98-107) mmol/L Carbon Dioxide (22-30) mmol/L Anion Gap mmol/L BUN (7-17) mg/dL Creatinine (0.52-1.04) mg/dL Est GFR (CKD-EPI)AfAm (>60 ml/min/1.73 sqM) Est GFR (CKD-EPI)NonAf (>60 ml/min/1.73 sqM) Glucose (74-99) mg/dL Calcium (8.4-10.2) mg/dL Magnesium (1.6-2.3) mg/dL Total Bilirubin (0.2-1.3) mg/dL AST (14-36) U/L ALT (4-34) U/L Alkaline Phosphatase (38-126) U/L Troponin I <0.012 (0.000-0.034) ng/mL Total Protein (6.3-8.2) g/dL Albumin (3.5-5.0) g/dL TSH (0.465-4.680) mIU/L Free T4 (0.78-2.19) ng/dL - Radiology Data Radiology results: image reviewed (Chest x-ray shows borderline cardiac megaly) Disposition Clinical Impression: Dysrhythmia Disposition: ADMITTED IP TO THIS [facility] Is patient prescribed a controlled substance at d/c from ED?: No Referrals: Joselyn Dougherty III, MD [Primary Care Provider] - 1-2 days Decision Time: 09:14
[2019-07-15 08:28] LABS: Basophils # (A) 0.1 k/uL (0-0.2); Basophils % (A) 1 %; Eosinophils # (A) 0.1 k/uL (0-0.7); Eosinophils % (A) 1 %; HCT 41.1 % (34.0-46.0); HGB 13.9 gm/dL (11.4-16.0); Lymphocytes # (A) 1.5 k/uL (1.0-4.8); Lymphocytes % (A) 16 %; MCH 28.7 pg (25.0-35.0); MCHC 33.7 g/dL (31.0-37.0); MCV 85.3 fL (80.0-100.0); Mean Platelet Volume 12.6; Monocytes # (A) 0.4 k/uL (0-1.0); Monocytes % (A) 4 %; Neutrophils # (A) 6.9 k/uL (1.3-7.7); Neutrophils % (A) 76 %; Platelet Count 170 k/uL (150-450); RBC 4.82 m/uL (3.80-5.40); WBC 9.1 k/uL (3.8-10.6)
--- NOTE | 2019-07-15 08:28 | XR ---
EXAMINATION TYPE: XR chest 1V portable DATE OF EXAM: 07/15/2019 Comparison: 10/10/2018 Clinical History: 49-year-old female dysrhythmia Findings: Heart upper limits of normal in size. Left base is underpenetrated and not well assessed. Additional hazy lower lung density on the right related to overlying soft tissue. Upper and mid lungs are clear. Impression: Borderline heart size. Left base is underpenetrated and not adequately assessed. Remainder of the yelitza gs show no definite acute process.
[2019-07-15 08:36] LABS: ALT 26 U/L (4-34); AST 29 U/L (14-36); African American GFR (CKD) >90 (>60 ml/min/1.73 sqM); Alkaline Phosphatase 29 U/L (38-126); Anion Gap 12 mmol/L; Blood Urea Nitrogen 12 mg/dL (7-17); Carbon Dioxide 19 mmol/L (22-30); Chloride 103 mmol/L (98-107); Glucose 296 mg/dL (74-99); Magnesium 1.8 mg/dL (1.6-2.3); Non-African American GFR(CKD) >90 (>60 ml/min/1.73 sqM); Potassium 4.2 mmol/L (3.5-5.1); Sodium 134 mmol/L (137-145); Total Bilirubin 1.2 mg/dL (0.2-1.3)
[2019-07-15 08:38] LABS: Partial Thromboplastin Time 24.4 sec (22.0-30.0)
[2019-07-15 08:53] LABS: Large Platelets Present; T4, Free (Free Thyroxine) 1.52 ng/dL (0.78-2.19)
[2019-07-15 09:21] LABS: Glucose,Whole Blood 273 mg/dL (75-99)
[2019-07-15] MEDS: METOPROLOL SUCCINATE (ER) 50 MG TAB.ER.24H PO SCH (12:10)
--- NOTE | 2019-07-15 12:54 | ECHOF ---
Referral Reason:atrial flutter MEASUREMENTS -------- HEIGHT: 172.7 cm WEIGHT: 164.2 kg BP: RVIDd: 2.8 cm (< 3.3) IVSd: 1.6 cm (0.6 - 1.1) LVIDd: 5.5 cm (3.9 - 5.3) LVPWd: 1.6 cm (0.6 - 1.1) IVSs: 2.0 cm LVIDs: 4.7 cm LVPWs: 1.7 cm Ao Diam: 3.2 cm (2.0 - 3.7) AV Cusp: 2.1 cm (1.5 - 2.6) LA Diam: 3.1 cm (2.7 - 3.8) RAP: 5.00 mmHg RVSP: 20.18 mmHg FINDINGS -------- The rhythm appears to be atrial flutter. This was a technically difficult study with suboptimal views. The left ventricular size is normal. There is moderate concentric left ventricular hypertrophy. O verall left ventricular systolic function is mild-moderately impaired with, an EF between 40 - 45 %. The right ventricle is normal in size. The left atrial size is normal. The right atrial size is normal. Lumason used The aortic valve is trileaflet and appears structurally normal. The mitral valve is normal. There is trace mitral regurgitation. The tricuspid valve appears structurally normal. Trace tricuspid regurgitation present. Right michell tricular systolic pressure is normal at < 35 mmHg. There is no pulmonic regurgitation present. The aortic root size is normal. IVC Not well visulized. There is no pericardial effusion. CONCLUSIONS -------- 1. The rhythm appears to be atrial flutter. 2. This was a technically difficult study with suboptimal views. 3. The left ventricular size is normal. 4. There is moderate concentric left ventricular hypertrophy. 5. Overall left ventricular systolic function is mild-moderately impaired with, an EF between 40 - 45 %. 6. The right ventricle is normal in size. 7. The left atrial size is normal. 8. The right atrial size is normal. 9. Lumason used 10. The aortic valve is trileaflet and appears structurally normal. 11. The mitral valve is normal. 12. There is trace mitral regurgitation. 13. The tricuspid valve appears structurally normal. 14. Trace tricuspid regurgitation present. 15. Right ventricular systolic pressure is normal at < 35 mmHg. 16. There is no pulmonic regurgitation present. 17. The aortic root size is normal. 18. IVC Not well visulized. 19. There is no pericardial effusion. RECORDING STUDIO SET UP WORKER: Maia Posada RDCS
[2019-07-15 12:56] LABS: Glucose,Whole Blood 177 mg/dL (75-99)
[2019-07-15] MEDS: INSULIN ASPART (NovoLOG) 100 UNIT/ML VIAL SQ SCH ×3 (13:08→20:54)
--- NOTE | 2019-07-15 14:18 | CONS ---
CONSULTATION Mrs. Galvan is a 49-year-old female with a known history of atrial fibrillation, has been followed by Dr. Mcdaniel on a regular basis, has not had significant palpitations recently. The last episode according to her was September, earlier today while at rest, she had an episode of rapid heartbeat. She took flecainide, which she takes on a p.r.n. basis twice, then her heart rate became quite fast. She became quite dizzy and almost presyncopal, came into the emergency room. She was noted to be in what appears to be atrial fibrillation with wide complex rhythm, consistent with aberrancy or could be atrial flutter with 1:1 conduction with aberrancy. She subsequently received IV amiodarone and slowed her down. She is still in atrial flutter and her conduction is back to normal QRS pattern. Patient felt short of breath, some heaviness in the chest. On a regular basis, she has no similar symptoms. She is usually relatively active until this pandemic, but has not had any significant chest pain. No dizziness. No palpitation. No PND, orthopnea, or peripheral edema. She has been anticoagulated. Her coronary risk factors are positive for diabetes and hypertension. She is a nonsmoker. No documented hyperlipidemia. MEDICATION: At home include metoprolol succinate 50 mg daily. She takes flecainide on a p.r.n. basis, Metformin 500 mg twice a day, Eliquis 5 mg twice a day, Provera, losartan 50 mg daily, Dyazide once a day, iron, Slow-Mag, and vitamin D. REVIEW OF SYSTEMS: RESPIRATORY SYSTEM: She has no documented history of recent cough or fever. No wheezing. GI SYSTEM: No recent GI bleeding, no peptic ulcer disease. SYSTEM: No dysuria or hematuria. NERVOUS SYSTEM: No stroke or seizure. PHYSICAL EXAMINATION: She is a 49-year-old female, alert, oriented, in no apparent distress, overweight, blood pressure 103/70 with a heart rate in the 110s. On presentation, her blood pressure was 67/42 with a heart rate in the 140s. HEAD: Normocephalic. EYES: Sclerae nonicteric. NECK: Good upstroke, no bruit. No jugular venous distention. LUNGS: Clear to auscultation. HEART: Irregular, regular. S1, S2. No S3 with a soft systolic murmur, no diastolic murmur. ABDOMEN: Soft, nontender. Positive bowel sounds. Obese. EXTREMITIES: No edema, intact distal pulses. LAB DATA: First EKG revealed wide-complex tachycardia, irregular with the left bundle branch block configuration, suggestive of aberrancy and could be a rate of 187. Subsequent EKG, revealed what appears to be atrial flutter with variable block and normal QRS duration with nonspecific ST-T wave changes. Her potassium is 4.2. BUN and creatinine of 12 and 0.73. Her hemoglobin 13.9. TSH 2.5. Her chest x-ray shows no evidence of infiltrate. IMPRESSION: 1. Wide complex tachycardia suggestive of possible atrial flutter or atrial fibrillation with aberrancy. Now, the patient looks more like atrial flutter. She has a prior history of paroxysmal atrial fibrillation in the past. 2. Hypertension. 3. Diabetes mellitus. 4. Obesity. RECOMMENDATION: From the cardiac standpoint, I will continue on the beta faisal. Will hold her JUANIS inhibitor at this time. The patient will obtain will be seen by Dr. Mcdaniel. She may benefit for an ablation. Her systolic function in the past was normal. I will repeat her echocardiogram. Will follow her renal function. Increase her level of activity and if she does not convert back to sinus mechanism, one of the options to consider is cardioversion. She has been anticoagulated. Thank you for this consult. Will follow with you. ANANYA / VELASQUEZ: [id number] /
[2019-07-15 16:59] LABS: Glucose,Whole Blood 132 mg/dL (75-99)
[2019-07-15] MEDS: metFORMIN 500 MG TAB PO SCH (17:02)
[2019-07-15 20:17] VITALS: RESP 18
[2019-07-15 20:51] LABS: Glucose,Whole Blood 153 mg/dL (75-99)
[2019-07-15] MEDS: APIXABAN 5 MG TAB PO SCH (20:53)
[2019-07-16 05:58] LABS: Glucose,Whole Blood 161 mg/dL (75-99)
[2019-07-16] MEDS: INSULIN ASPART (NovoLOG) 100 UNIT/ML VIAL SQ SCH ×2 (06:07→13:22)
[2019-07-16 07:47] LABS: African American GFR (CKD) >90 (>60 ml/min/1.73 sqM); Anion Gap 9 mmol/L; Blood Urea Nitrogen 12 mg/dL (7-17); Calcium 8.8 mg/dL (8.4-10.2); Carbon Dioxide 25 mmol/L (22-30); Chloride 102 mmol/L (98-107); Cholesterol 111 mg/dL (<200); Glucose 168 mg/dL (74-99); HDL Cholesterol 41 mg/dL (40-60); LDL Cholesterol,Calculated 53 mg/dL (0-99); Non-African American GFR(CKD) >90 (>60 ml/min/1.73 sqM); Potassium 3.8 mmol/L (3.5-5.1); Sodium 136 mmol/L (137-145); Triglycerides 85 mg/dL (<150)
[2019-07-16] MEDS: metFORMIN 500 MG TAB PO SCH (07:50)
[2019-07-16] MEDS: METOPROLOL SUCCINATE (ER) 50 MG TAB.ER.24H PO SCH (07:51)
[2019-07-16] MEDS: APIXABAN 5 MG TAB PO SCH (07:51)
[2019-07-16] MEDS ORDERED: TRIAMTERENE-HCTZ 37.5-25MG 1 EACH TAB PO SCH (09:00)
[2019-07-16 12:11] LABS: Glucose,Whole Blood 255 mg/dL (75-99)
--- NOTE | 2019-07-16 12:57 | P.HPIM ---
History of Present Illness H&P Date: 07/16/19 Chief Complaint: Palpitations Patient is a 49-year-old female with a known history of hypertension, diabetes type 2 [id number], morbid obesity BMI 53.4 and paroxysmal atrial fibrillation currently on anticoagulation with Eliquis came to ER with complaints of palpitations. Palpitations started around 1 AM on the day of admission. Patient has been having waxing and waning of symptoms. No history of recent palpitations. Patient does take flecainide as needed basis. Patient did take medication which did not improve her symptoms and came to ER. Patient otherwise denied any complaints of headache or dizziness. Did have chest discomfort/heaviness. No radiation of the pain patient does have nausea no episodes of vomiting. No diarrhea. No dysuria or hematuria. No cough or sputum production. No fever no chills. No orthopnea no PND. Denied any incre ased leg swelling. Patient was started on IV amiodarone in the emergency room.. Troponin 3 negative TSH and free T4 level within normal limits Blood sugar is elevated up to 300 on admission. Patient was initially admitted to Dr. Avila service and was transferred to our service today. Review of Systems Constitutional: Patient denies any fever or chills . No generalized weakness or weight loss. Abdomen: Patient denied nausea vomiting and diarrhea and abdominal pain. Cardiovascular: Patient does have chest heaviness and discomfort along with shortness of breath and palpitations. No leg swelling.. Respiratory: patient denied any cough is from production. No shortness of breath Neurologic: Patient denied any numbness or tingling headache. Musculoskeletal: Patient denies any complaints of joint swelling or deformity. Skin: Negative Psychiatric: Negative Endocrine: No heat or cold intolerance. No recent weight gain. Genitourinary: No dysuria or hematuria. All other 14 point ROS negative except the above Past Medical History Past Medical History: Atrial Fibrillation, Hypertension Additional Past Medical History / Comment(s): anemia History of Any Multi-Drug Resistant Organisms: None Reported Past Surgical History: Section Additional Past Surgical History / Comment(s): D &C 09/2018 Past Anesthesia/Blood Transfusion Reactions: No Reported Reaction Past Psychological History: Anxiety, Depression Smoking Status: Never smoker Past Alcohol Use History: Rare Past Drug Use History: None Reported - Past Family History Father Family Medical History: Hyperlipidemia, Osteoarthritis (OA) Mother Family Medical History: Asthma Additional Family Medical History / Comment(s): GRAVES DISEASE. PT'S MOM IN HER SLEEP AT AGE OF 63 Medications and Allergies Home Medications Medication Instructions Recorded Confirmed Type Triamterene/Hydrochlorothiazid 1 tab PO DAILY 05/03/15 07/15/19 History [Triamterene-Hctz 37.5-25 mg Tb] Ferrous Sulfate [Feosol] 325 mg PO DAILY 08/19/18 07/15/19 History Metoprolol Succinate (ER) [Toprol 50 mg PO DAILY 08/19/18 07/15/19 History XL] Ergocalciferol [Vitamin D2 50,000 unit PO WE 10/10/18 07/15/19 History (DRISDOL)] Magnesium Chloride [Slow-Mag] 64 mg PO DAILY 10/10/18 07/15/19 History Apixaban [Eliquis] 5 mg PO BID 07/15/19 07/15/19 History Flecainide [Tambocor] 50 mg PO Q12H PRN 07/15/19 07/15/19 History Losartan Potassium 50 mg PO DAILY 07/15/19 07/15/19 History medroxyPROGESTERone [Provera] 30 mg PO DAILY 07/15/19 07/15/19 History metFORMIN HCL [Glucophage] 500 mg PO BID 07/15/19 07/15/19 History Allergies Allergy/AdvReac Type Severity Reaction Status Date / Time venom-honey bee Allergy Swelling Verified 07/15/19 09:17 [bee venom (honey bee)] lisinopril AdvReac Cough Verified 07/15/19 09:17 venlafaxine [From Effexor] AdvReac Hallucinati Verified 07/15/19 09:17 ons Physical Exam Vitals: Vital Signs Temp Pulse Pulse Resp BP BP Pulse Ox 07/16/19 04:00 97.8 F 58 L 18 133/61 98 07/15/19 23:18 69 18 07/15/19 23:10 97.6 F 69 18 120/56 98 07/15/19 20:00 97.7 F 65 18 138/64 100 07/15/19 17:06 61 20 07/15/19 17:04 97.7 F 61 20 146/76 99 07/15/19 13:00 111 H 07/15/19 12:53 97.7 F 111 H 24 131/77 97 07/15/19 11:37 117 H 17 120/74 98 Intake and Output 07/15/19 07/16/19 07/16/19 22:59 06:59 14:59 Intake Total 330 Balance 330 Intake: IV 30 0.9 10 Invasive Line 1 10 Invasive Line 2 10 Oral 300 Other: Voiding Method Toilet Toilet # Voids 1 1 Weight 159.1 kg 159.3 kg PHYSICAL EXAMINATION: Patient is lying in the bed comfortably, no acute distress, awake alert and oriented. Morbidly obese. HEENT: Normocephalic. Neck is supple. Pupils reactive. Nostrils clear. Oral cavity is moist. Ears reveal no drainage. Neck reveals no JVD, carotid bruits, or thyromegaly. CHEST EXAMINATION: Trachea is central. Symmetrical expansion. Lung hernandez clear to auscultation and percussion. CARDIAC: Normal S1, S2 with no gallops. No murmurs. Irregularly irregular rhythm. ABDOMEN: Soft. Bowel sounds normal. No organomegaly. No abdominal bruits. Extremities: reveal no edema. No clubbing or cyanosis Neurologically awake, alert, oriented x3 with well-coordinated movements. No focal deficits noted Skin: No rash or skin lesions. Psychiatric: Coperative. Nonsuicidal Musculoskeletal: No joint swelling or deformity. Normal range of motion. Results CBC & Chem 7: 07/15/19 08:02 07/16/19 06:52 Labs: Abnormal Lab Results - Last 24 Hours (Table) 07/15/19 07/15/19 07/15/19 Range/Units 12:54 16:57 20:50 Sodium (137-145) mmol/L Glucose (74-99) mg/dL POC Glucose (mg/dL) 177 H 132 H 153 H (75-99) mg/dL 07/16/19 07/16/19 Range/Units 05:57 06:52 Sodium 136 L (137-145) mmol/L Glucose 168 H (74-99) mg/dL POC Glucose (mg/dL) 161 H (75-99) mg/dL Thrombosis Risk Factor Assmnt - DVT/VTE Prophylaxis DVT/VTE Prophylaxis: Pharmacologic Prophylaxis ordered - Choose All That Apply Each Factor Represents 1 point: Age 41-60 years, Obesity (BMI >25) Other Risk Factors: No Other congenital or acquired thrombophilia - If yes, enter type in comment: No Thrombosis Risk Factor Assessment Total Risk Factor Score: 2 Thrombosis Risk Factor Assessment Level: Low Risk Assessment and Plan Assessment: Atrial fibrillation with rapid ventricular rate. Possible atrial flutter with aberrancy Paroxysmal atrial fibrillation on anticoagulation with Eliquis. Hypertension Diabetes type 2 [id number] Morbid obesity BMI 53.4 Plan: Patient will be continued on telemetry monitoring. Currently heart rate is controlled. Patient is being continued on beta blockers. Amiodarone drip has been discontinued. JUANIS inhibitor is on hold. EP was consulted. 2-D echocardiogram was ordered which showed ejection fraction 40-45% and patient is in atrial flutter. Cardiology is on board. Further recommendations based on the clinical course.. Time with Patient: Greater than 30
[2019-07-16 14:34] VITALS: BP 120/62; PULSE 58; TEMP 98.2
--- NOTE | 2019-07-16 14:47 | P.PN ---
Subjective Patient is resting comfortably in bed. Her heart rates are better controlled She has a history of atrial fibrillation and at 1 AM in the morning on the day prior to admission she went into atrial fibrillation. She took flecainide as instructed, to block technique When she woke up in the morning she was still in A. fib and took another dose of flecainide. Around that time she felt very dizzy lightheaded with a rapid heartbeat and when she arrived in the emergency room a 12-lead EKG showed a ventricular rate of 187 beats a minute with a wide QRS tachycardia with a left bundle branch block morphology consistent with aberrancy, likely atrial tachycardia with aberrant conduction secondary to of flecainide effect She then converted to an atrial tachycardia with 21 block with a narrow QRS. That rhythm was consistent with typical atrial flutter with a controlled ventricular response At this time she is very stable she has no chest discomfort Vitals 141/66 mmHg ,normal respirations normal heart rates afebrile 98.2F Breath sounds are clear no rhonchi no crackles Heart sounds are normal no murmurs Extremity is warm Hemoglobin 13.9, hematocrit 41.1 Sodium 136 potassium 3.8, BUN 12 creatinine 0.71 Increased glucose TSH 2.56 LDL 53 HDL 41 total cholesterol 111 triglycerides 85 Impression History of paroxysmal atrial fibrillation History of hypertension History of obesity Organization of atrial fibrillation in 20 atrial tachycardia with left bundle branch block aberrancy wide QRS at 187 beats a minute and very symptomatic, secondary to of flecainide effect Subsequently organized typical atrial flutter with 2:1 block narrow QRS 2-D echo showed reduced LV systolic function ejection fraction 40-45% EKG showed ST depressions in the inferior leads Suggest Stop flecainide completely Use metoprolol for episodes of atrial fibrillation for rate control Continue anticoagulation with ELIQUIS Continue diabetes medications and antihypertensive therapy Reevaluation for management of atrial fibrillation If she has very infrequent episodes and is minimally symptomatic after taking an extra dose of metoprolol tartrate 50 g daily she may continue in this manner. She is scared of getting an ablation done but I advised her that if she continues to have frequent episodes than this would be advisable Antiarrhythmic Drug Therapy Given the Effect of Flecainide in Organizing the Atrial Tachycardia with Left Bundle-Branch Block Aberrancy Which Is Very Symptomatic We Have Documented Atrial Flutter and She Should Undergo an Atrial Flutter Ablation First, in the Future Evaluation of Cardiac Function and Evaluation for Coronary Artery Disease As an Outpatient Objective - Vital Signs Vital signs: Vital Signs Temp 98.2 F 07/16/19 14:20 Pulse 58 L 07/16/19 14:20 Resp 18 07/16/19 14:20 BP 120/62 07/16/19 14:20 Pulse Ox 99 07/16/19 14:20 Intake & Output 07/15/19 07/16/19 07/16/19 18:59 06:59 18:59 Intake Total 580 10 260 Balance 580 10 260 Weight 159.1 kg 159.3 kg Intake: IV 40 10 20 0.9 10 Invasive Line 1 20 10 Invasive Line 2 20 10 Oral 540 240 Other: Voiding Method Toilet Toilet # Voids 1 1 - Labs CBC & Chem 7: 07/15/19 08:02 07/16/19 06:52 Labs: Abnormal Lab Results - Last 24 Hours (Table) 07/15/19 07/15/19 07/16/19 Range/Units 16:57 20:50 05:57 Sodium (137-145) mmol/L Glucose (74-99) mg/dL POC Glucose (mg/dL) 132 H 153 H 161 H (75-99) mg/dL 07/16/19 07/16/19 Range/Units 06:52 12:02 Sodium 136 L (137-145) mmol/L Glucose 168 H (74-99) mg/dL POC Glucose (mg/dL) 255 H (75-99) mg/dL
== END 2019-07-16 14:32 | disposition home or self-care (01) ==
LOC: EC 07:45 → 3SCARD 09:14
PROVIDERS: ADMIT Internal Medicine; ATTEND Internal Medicine
DX: I48.0 Paroxysmal atrial fibrillation (principal); R11.0 Nausea; I48.3 Typical atrial flutter; E11.9 Type 2 diabetes mellitus without complications; E66.01 Morbid (severe) obesity due to excess calories; F32.9 Major depressive disorder, single episode, unspecified; F41.9 Anxiety disorder, unspecified; I10 Essential (primary) hypertension; I44.7 Left bundle-branch block, unspecified; Z68.43 Body mass index [BMI] 50.0-59.9, adult; Z82.5 Family history of asthma and other chronic lower respiratory diseases; Z11.59 Encounter for screening for other viral diseases; Z88.8 Allergy status to other drugs, medicaments and biological substances; Z91.030 Bee allergy status; Z82.61 Family history of arthritis; Z84.89 Family history of other specified conditions; Z79.82 Long term (current) use of aspirin; Z79.899 Other long term (current) drug therapy; Z79.01 Long term (current) use of anticoagulants; Z79.84 Long term (current) use of oral hypoglycemic drugs
CPT/HCPCS: 93005 ×2; 99285; 36415; 93306; 84439; 84481; 80061; 80053; 80048; 83735; 84443; 84484; 85025; 85610; 85730; 87635; 71045; G0378 ×2; Q9950

== ENCOUNTER → 2019-10-20 | Outpatient (CLI) | payer BC ==
--- NOTE | 2019-10-20 18:51 | CONS ---
CONSULTATION DATE OF SERVICE: 10/20/2019 This patient is a 49-year-old lady who has been evaluated in [facility] for possible obstructive sleep apnea-hypopnea syndrome. HISTORY OF PRESENT ILLNESS/SLEEP-WAKE EVALUATION: Patient's usual sleep schedule is from 10 or 11 p.m. to 5:15 a.m. on working days, and on weekends she does not have any scheduled sleep regimen. Sometimes she has problems with falling asleep. She has a TV set in the bedroom. She usually sleeps on the side position by herself with snoring and multiple awakenings from sleep, with up to 2 episodes of nocturia. In the morning she wakes up tired, has episodes of anxiety and claustrophobia. [place] Sleepiness Scale is 4. PAST MEDICAL HISTORY: Past medical history is positive for several episodes of atrial fibrillation, hypertension, diabetes mellitus, anemia. PAST SURGICAL HISTORY: , D&C. MEDICATIONS: Metformin, Eliquis, vitamin D, iron supplement, losartan, magnesium, metoprolol, triamterene, hydrochlorothiazide, medroxyprogesterone, Pravastatin. SOCIAL HISTORY: Negative for smoking or using alcohol. FAMILY HISTORY: Hypertension, during sleep. PHYSICAL EXAMINATION: GENERAL: A pleasant lady without distress. VITAL SIGNS: BP 135/81, HR 62, RR 16, height 5 feet 7 inches, weight 345. Body mass index 54.0. Temperature 98.3, oxygen saturation at room air 98%. HEENT: PERRLA, EOMI. Evaluation of oropharynx showed tongue protrudes midline. Low position of soft palate. NECK: Supple. No JVD. Thyroid is not palpable. Wide neck; 16-1/2 inches in circumference. LUNGS: Clear to percussion and to auscultation. Good air exchange. No wheezing or rhonchi. HEART: S1, S2 regular. No murmurs, gallops or rubs. ABDOMEN: Obese. EXTREMITIES: No clubbing or cyanosis. NEON ELECTRICIAN: Awake, alert, and oriented X3. Cranial nerves 2 to 7 intact. There is no fasciculation or atrophy. noted. No focal deficits observed. IMPRESSION: 1. Snoring, multiple awakenings from sleep, small oropharyngeal air space, wide neck at 16-1/2 inches; obstructive sleep apnea-hypopnea syndrome. 2. History of atrial fibrillation. 3. Morbid obesity. BMI 54.0. 4. Hypertension. 5. Diabetes mellitus. 6. Hyperlipidemia. 7. Status post section. 8. History of iron deficiency anemia. PLAN: 1. Sleep study for evaluation of patient's breathing during sleep. 2. CPAP/BiPAP titration if sleep study confirms obstructive sleep apnea-hypopnea syndrome. 3. Preferable position during sleep on the side. 4. No driving if patient feels any sleepiness. 5. I will see patient for follow up visit to explain results of testing and following plan. Thank you very much for referring this patient for consultation. Sincerely, Alexey Tinajero MD, PhD, FAASM Diplomat of [place] [employer] [employer] Adjunct Faculty Instructor of [employer] [facility] [place] MMODL / JURGENN: [id number] /
== END | disposition home or self-care (01) ==
LOC: SLEEP 14:29
PROVIDERS: ATTEND Internal Medicine
DX: G47.33 Obstructive sleep apnea (adult) (pediatric) (principal); E11.9 Type 2 diabetes mellitus without complications; I10 Essential (primary) hypertension; E78.5 Hyperlipidemia, unspecified; E66.01 Morbid (severe) obesity due to excess calories; Z86.79 Personal history of other diseases of the circulatory system; Z79.84 Long term (current) use of oral hypoglycemic drugs; Z79.899 Other long term (current) drug therapy; Z86.2 Personal history of diseases of the blood and blood-forming organs and certain disorders involving the immune mechanism; Z68.43 Body mass index [BMI] 50.0-59.9, adult
CPT/HCPCS: 99211

== ENCOUNTER 2020-07-22 21:41 | Emergency (ER) | payer BC ==
[2020-07-22 21:58] VITALS: TEMP 98.5
--- NOTE | 2020-07-22 23:16 | ED ---
Female Urogenital HPI - General Chief complaint: Vaginal Bleeding Stated complaint: Urogenital Time Seen by Provider: 07/22/20 22:06 Source: patient Mode of arrival: ambulatory Limitations: no limitations - History of Present Illness Initial comments: 50 year-old female patient presents to the emergency department for evaluation of heavy vaginal bleeding. States she has been having passage of large blood clots and big as her fist. States before passing a blood clot she has intense abdominal and back cramping. States that she has had trouble with heavy bleeding in the past, underwent D&C in 09/2018. States that symptoms seemed to improve after that. Was also put on progesterone to "induce menopause" which was unsuccessful. States periods are generally regular, occasionally skips a month here and there. States that she started bleeding three days ago. States she is wearing a tampon and three pads and changing it about every 15-20 minutes. States today she started to feel dizzy and sweaty. States she has had to have blood transfusion for this in the past. Patient denies any recent rash, fever, chills, cough, shortness of breath, chest pain, nausea, vomiting, diarrhea, constipation, numbness, tingling, dizziness, weakness, dysuria, urinary urgency, urinary frequency, headache, visual changes, or any other complaints. Last Menstrual Period: 07/15/20 - Related Data Home Medications Medication Instructions Recorded Confirmed Triamterene/Hydrochlorothiazid 1 tab PO DAILY 05/03/15 07/15/19 [Triamterene-Hctz 37.5-25 mg Tb] Ferrous Sulfate [Feosol] 325 mg PO DAILY 08/19/18 07/15/19 Metoprolol Succinate (ER) [Toprol 50 mg PO DAILY 08/19/18 07/15/19 XL] Ergocalciferol [Vitamin D2 50,000 unit PO WE 10/10/18 07/15/19 (DRISDOL)] Magnesium Chloride [Slow-Mag] 64 mg PO DAILY 10/10/18 07/15/19 Apixaban [Eliquis] 5 mg PO BID 07/15/19 07/15/19 Losartan Potassium 50 mg PO DAILY 07/15/19 07/15/19 medroxyPROGESTERone [Provera] 30 mg PO DAILY 07/15/19 07/15/19 metFORMIN HCL [Glucophage] 500 mg PO BID 07/15/19 07/15/19 Allergies Allergy/AdvReac Type Severity Reaction Status Date / Time venom-honey bee Allergy Swelling Verified 07/22/20 21:58 [bee venom (honey bee)] lisinopril AdvReac Cough Verified 07/22/20 21:58 venlafaxine [From Effexor] AdvReac Hallucinati Verified 07/22/20 21:58 ons Review of Systems ROS Statement: Those systems with pertinent positive or pertinent negative responses have been documented in the HPI. ROS Other: All systems not noted in ROS Statement are negative. Past Medical History Past Medical History: Atrial Fibrillation, Hypertension Additional Past Medical History / Comment(s): anemia History of Any Multi-Drug Resistant Organisms: None Reported Past Surgical History: Section Additional Past Surgical History / Comment(s): D &C 09/2018 Past Anesthesia/Blood Transfusion Reactions: No Reported Reaction Past Psychological History: Anxiety, Depression Smoking Status: Never smoker Past Alcohol Use History: Rare Past Drug Use History: None Reported - Past Family History Father Family Medical History: Hyperlipidemia, Osteoarthritis (OA) Mother Family Medical History: Asthma Additional Family Medical History / Comment(s): GRAVES DISEASE. PT'S MOM IN HER SLEEP AT AGE OF 63 General Exam Limitations: no limitations General appearance: alert, in no apparent distress, other (This is a well- developed, well-nourished adult female patient in no acute distress. Vital signs upon presentation temperature 98.5F, pulse 112, respirations 20, blood pressure 141/74, pulse ox 95% on room air.) Eye exam: Present: normal appearance, PERRL, EOMI. Absent: scleral icterus, conjunctival injection, periorbital swelling ENT exam: Present: normal exam, normal oropharynx, mucous membranes moist Cardiovascular Exam: Present: normal rhythm, tachycardia, normal heart sounds. Absent: systolic murmur, diastolic murmur, rubs, gallop, clicks GI/Abdominal exam: Present: soft, normal bowel sounds. Absent: distended, tenderness, guarding, rebound, rigid External exam: Present: normal external exam Speculum exam: Present: vaginal bleeding (Moderate dark red), other (cervical os closed) Neurological exam: Present: alert, oriented X3, CN II-XII intact Psychiatric exam: Present: normal affect, normal mood Skin exam: Present: warm, dry, intact, normal color. Absent: rash Course Vital Signs 07/22/20 07/23/20 21:54 00:00 Temperature 98.5 F Pulse Rate 112 H 98 Respiratory 20 18 Rate Blood Pressure 141/74 131/78 O2 Sat by Pulse 95 98 Oximetry Medical Decision Making - Medical Decision Making 50-year-old female patient presents to the emergency department today for evaluation of heavy vaginal bleeding started 3 days ago. Reported passage of large blood clots. Labs reviewed and did reveal hemoglobin 10.8. She is not . Ultrasound was obtained and showed thickened endometrium. Vital signs remained stable. I did discuss the case with Dr. Boucher contour stitcher PROJECT INSPECTOR. She will be discharged to follow up with the him as soon as possible. She is instructed to call office in the morning for an appointment. Return parameters were discussed in detail. She verbalizes understanding and agrees with this plan. Case discussed with my attending Dr. Keller. - Lab Data Result diagrams: 07/22/20 22:37 07/22/20 22:37 Lab Results 07/22/20 07/22/20 07/22/20 Range/Units 22:37 22:37 22:37 WBC 10.8 H (3.8-10.6) k/uL RBC 3.67 L (3.80-5.40) m/uL Hgb 10.8 L (11.4-16.0) gm/dL Hct 30.2 L (34.0-46.0) % MCV 82.4 (80.0-100.0) fL MCH 29.4 (25.0-35.0) pg MCHC 35.7 (31.0-37.0) g/dL RDW 14.0 (11.5-15.5) % Plt Count 165 (150-450) k/uL MPV 11.8 Neutrophils % 76 % Lymphocytes % 14 % Monocytes % 7 % Eosinophils % 1 % Basophils % 0 % Neutrophils # 8.3 H (1.3-7.7) k/uL Lymphocytes # 1.5 (1.0-4.8) k/uL Monocytes # 0.7 (0-1.0) k/uL Eosinophils # 0.1 (0-0.7) k/uL Basophils # 0.0 (0-0.2) k/uL PT 9.7 (9.0-12.0) sec INR 0.9 (<1.2) APTT 21.5 L (22.0-30.0) sec Sodium 136 L (137-145) mmol/L Potassium 3.5 (3.5-5.1) mmol/L Chloride 101 (98-107) mmol/L Carbon Dioxide 24 (22-30) mmol/L Anion Gap 11 mmol/L BUN 13 (7-17) mg/dL Creatinine 0.90 (0.52-1.04) mg/dL Est GFR (CKD-EPI)AfAm 87 (>60 ml/min/1.73 sqM) Est GFR (CKD-EPI)NonAf 75 (>60 ml/min/1.73 sqM) Glucose 180 H (74-99) mg/dL Calcium 9.3 (8.4-10.2) mg/dL HCG, Qual Blood Type Blood Type Recheck Bld Type Recheck Status Antibody Screen Spec Expiration Date 07/22/20 07/22/20 Range/Units 22:37 22:37 WBC (3.8-10.6) k/uL RBC (3.80-5.40) m/uL Hgb (11.4-16.0) gm/dL Hct (34.0-46.0) % MCV (80.0-100.0) fL MCH (25.0-35.0) pg MCHC (31.0-37.0) g/dL RDW (11.5-15.5) % Plt Count (150-450) k/uL MPV Neutrophils % % Lymphocytes % % Monocytes % % Eosinophils % % Basophils % % Neutrophils # (1.3-7.7) k/uL Lymphocytes # (1.0-4.8) k/uL Monocytes # (0-1.0) k/uL Eosinophils # (0-0.7) k/uL Basophils # (0-0.2) k/uL PT (9.0-12.0) sec INR (<1.2) APTT (22.0-30.0) sec Sodium (137-145) mmol/L Potassium (3.5-5.1) mmol/L Chloride (98-107) mmol/L Carbon Dioxide (22-30) mmol/L Anion Gap mmol/L BUN (7-17) mg/dL Creatinine (0.52-1.04) mg/dL Est GFR (CKD-EPI)AfAm (>60 ml/min/1.73 sqM) Est GFR (CKD-EPI)NonAf (>60 ml/min/1.73 sqM) Glucose (74-99) mg/dL Calcium (8.4-10.2) mg/dL HCG, Qual Not Detected Blood Type A Positive Blood Type Recheck A Pos Bld Type Recheck Status No Antibody Screen NEGATIVE Spec Expiration Date 07/25/20202336 - Radiology Data Radiology results: report reviewed, image reviewed Transvaginal ultrasound was obtained. Report is reviewed in its entirety. Impression by Dr. Cho shows endometrium is thickened probably related hypertrophy. No endometrial massing. Multiple cervical cyst. No adnexal mass or free fluid. Disposition Clinical Impression: Dysfunctional uterine bleeding Disposition: HOME SELF-CARE Condition: Good Instructions (If sedation given, give patient instructions): Dysfunctional Uterine Bleeding (ED) Additional Instructions: Follow-up with PROJECT INSPECTOR as soon as possible. Return to the emergency department for any new, worsening, or concerning symptoms. Is patient prescribed a controlled substance at d/c from ED?: No Referrals: Joselyn Dougherty III, MD [Primary Care Provider] - 1-2 days José Miguel Boucher DO [Doctor of Osteopathic Medicine] - 1-2 days Time of Disposition: 01:13
[2020-07-22 23:25] LABS: Basophils % (A) 0 %; Eosinophils # (A) 0.1 k/uL (0-0.7); Eosinophils % (A) 1 %; HCT 30.2 % (34.0-46.0); HGB 10.8 gm/dL (11.4-16.0); Lymphocytes # (A) 1.5 k/uL (1.0-4.8); Lymphocytes % (A) 14 %; MCH 29.4 pg (25.0-35.0); MCHC 35.7 g/dL (31.0-37.0); MCV 82.4 fL (80.0-100.0); Mean Platelet Volume 11.8; Monocytes # (A) 0.7 k/uL (0-1.0); Monocytes % (A) 7 %; Neutrophils # (A) 8.3 k/uL (1.3-7.7); Neutrophils % (A) 76 %; Platelet Count 165 k/uL (150-450); RBC 3.67 m/uL (3.80-5.40); WBC 10.8 k/uL (3.8-10.6)
[2020-07-22 23:46] LABS: INR 0.9 (<1.2); Prothrombin Time 9.7 sec (9.0-12.0)
--- NOTE | 2020-07-22 23:54 | US ---
EXAMINATION TYPE: US transvaginal DATE OF EXAM: 07/22/2020 COMPARISON: US 2019 CLINICAL HISTORY: Heavy vaginal bleeding. Heavy bleeding x 3 days, 2, para 2 TECHNIQUE: Transvaginal ER exam. Date of LMP: Unknown EXAM MEASUREMENTS: Uterus: 9.6 x 4.2 x 3.8 cm Endometrial Stripe: 1.6 cm Difficult and limited study due to patient body habitus 1. Uterus: limited visualization, heterogeneous, multiple nabothian cysts 2. Endometrium: thickened 3. Right Ovary: not seen 4. Left Ovary: not seen 5. Bilateral Adnexa: wnl 6. Posterior cul-de-sac: wnl IMPRESSION: Endometrium is thick and probably related to hypertrophy. No endometrial mass seen. Multiple cervical cysts. No adnexal mass or free fluid.
[2020-07-23 00:10] LABS: Partial Thromboplastin Time 21.5 sec (22.0-30.0)
[2020-07-23] MEDS ORDERED: ACETAMINOPHEN TAB 325 MG TAB PO STA (00:12)
[2020-07-23 00:13] LABS: Calcium 9.3 mg/dL (8.4-10.2); Potassium 3.5 mmol/L (3.5-5.1)
[2020-07-23 00:20] VITALS: BP 131/78; PULSE 98; RESP 18
== END 2020-07-23 01:36 | disposition home or self-care (01) ==
LOC: EC 21:41
DX: N93.8 Other specified abnormal uterine and vaginal bleeding (principal); I48.91 Unspecified atrial fibrillation; I10 Essential (primary) hypertension; F32.9 Major depressive disorder, single episode, unspecified; Z79.01 Long term (current) use of anticoagulants
CPT/HCPCS: 36415; 76830; 80048; 84703; 85025; 85610; 85730; 86850; 86900; 86901; 99284

== ENCOUNTER → 2020-09-11 | Outpatient (CLI) | payer BC ==
[2020-09-11 15:56] LABS: Basophils # (A) 0.1 k/uL (0-0.2); Basophils % (A) 1 %; Eosinophils # (A) 0.1 k/uL (0-0.7); Eosinophils % (A) 1 %; HCT 29.8 % (34.0-46.0); HGB 10.4 gm/dL (11.4-16.0); Lymphocytes # (A) 1.3 k/uL (1.0-4.8); Lymphocytes % (A) 14 %; MCH 29.6 pg (25.0-35.0); MCHC 34.7 g/dL (31.0-37.0); MCV 85.3 fL (80.0-100.0); Mean Platelet Volume 12.2; Monocytes # (A) 0.5 k/uL (0-1.0); Monocytes % (A) 5 %; Neutrophils # (A) 7.3 k/uL (1.3-7.7); Neutrophils % (A) 78 %; Platelet Count 196 k/uL (150-450); RBC 3.49 m/uL (3.80-5.40); RDW 13.3 % (11.5-15.5); WBC 9.4 k/uL (3.8-10.6)
== END | disposition home or self-care (01) ==
LOC: LABPAT 15:19
PROVIDERS: ATTEND Obstetrics & Gynecology
DX: Z01.812 Encounter for preprocedural laboratory examination (principal)
CPT/HCPCS: 85025

== ENCOUNTER 2020-09-18 07:20 | Day surgery (SDC) | payer BC ==
[2020-09-13 13:25] VITALS: BMI 50.9
--- NOTE | 2020-09-17 16:07 | P.HPOB ---
History of Present Illness H&P Date: 09/17/20 Chief Complaint: Dysfunctional uterine bleeding Iveth is a 50-year-old female with dysfunctional uterine bleeding. She was seen through the emergency room and has transitioned to care she had an ultrasound done showing thickened endometrium despite being on progesterone for 14 days each cycle. She is been on this for quite a while and her symptoms of heavy bleeding have not abated. She apparently had a D&C in 2019 but I do not have pathology reports was unclear what they were trying to treat or why. We are going to move forward with a D&C with hysteroscopy for same. She will also undergo a Pap smear at the same time. Past Medical History Past Medical History: Atrial Fibrillation, Diabetes Mellitus, Hypertension, Sleep Apnea/CPAP/BIPAP Additional Past Medical History / Comment(s): Heavy vaginal bleeding X last 1-2 months. Anemia, CPAP use. History of Any Multi-Drug Resistant Organisms: None Reported Past Surgical History: Section Additional Past Surgical History / Comment(s): D&C. Past Anesthesia/Blood Transfusion Reactions: No Reported Reaction Past Psychological History: Anxiety, Depression, PTSD Smoking Status: Never smoker Past Alcohol Use History: Rare Past Drug Use History: None Reported - Past Family History Father Family Medical History: Hyperlipidemia, Osteoarthritis (OA) Mother Family Medical History: Asthma, Thyroid Disorder Additional Family Medical History / Comment(s): GRAVES DISEASE. PT'S MOM IN HER SLEEP AT AGE OF 63 AFTER SURGERY. Medications and Allergies Home Medications Medication Instructions Recorded Confirmed Type Triamterene/Hydrochlorothiazid 1 tab PO QAM 05/03/15 09/13/20 History [Triamterene-Hctz 37.5-25 mg Tb] Ferrous Sulfate [Feosol] 325 mg PO DAILY 08/19/18 09/13/20 History Metoprolol Succinate (ER) [Toprol 50 mg PO QAM 08/19/18 09/13/20 History XL] Ergocalciferol [Vitamin D2 50,000 unit PO WE 10/10/18 09/13/20 History (DRISDOL)] Magnesium Chloride [Slow-Mag] 64 mg PO DAILY 10/10/18 09/13/20 History Apixaban [Eliquis] 5 mg PO BID 07/15/19 09/13/20 History Losartan Potassium 50 mg PO HS 07/15/19 09/13/20 History metFORMIN HCL [Glucophage] 500 mg PO BID 07/15/19 09/13/20 History Allergies Allergy/AdvReac Type Severity Reaction Status Date / Time venom-honey bee Allergy Swelling Verified 09/13/20 13:08 [bee venom (honey bee)] lisinopril AdvReac Cough Verified 09/13/20 13:08 venlafaxine [From Effexor] AdvReac Hallucinati Verified 09/13/20 13:08 ons Exam Osteopathic Statement: *. No significant issues noted on an osteopathic structural exam other than those noted in the History and Physical/Consult. - OBG Physical Exam Breast: both: normal (no masses) Abdomen: Morbid obesity Abdomen: bowel sounds normal, no diffuse tenderness, no bruit present, no guarding noted, no hepatomegaly, no splenomegaly, no mass Vulva: both: normal Vagina: normal moisture, no discharge Cervix: no lesion, no discharge Uterus: Exam is limited by body habitus Uterus: normal size, normal contour Adnexa: both: normal Anus/Rectum: normal perianal skin, no rectal mass, no hemorrhoids, heme negative
[~2020-09-18 07:20] MED LIST: DEXAMETHASONE SOD PHOSPHATE 4 MG/ML 1 ML VIAL IV ONE; HYDROmorphone 0.5 MG/0.5 ML SYRINGE IVP PRN; LACTATED RINGERS 1,000 ML IV SCH; ONDANSETRON 4 MG/2 ML VIAL IVP ONE; Pre Op ABX Message 1 EACH MISC MISCELLANE ONE
[2020-09-18 07:46] VITALS: RESP 16; TEMP 97.6
[2020-09-18] MEDS ORDERED: LIDOCAINE 1% (10MG/ML) FOR IV START INTRADERMA ONE (08:03)
[2020-09-18 08:05] LABS: Glucose,Whole Blood 161 mg/dL (75-99)
[2020-09-18] MEDS ORDERED: SUCCINYLCHOLINE CHLORIDE VIAL 200 MG/10 ML VIAL IV ONE (08:31)
[2020-09-18] MEDS ORDERED: MIDAZOLAM 2 MG/2 ML VIAL ONE (08:31)
[2020-09-18] MEDS ORDERED: LIDOCAINE 1% INJ 10MG/ML (20 ML MDV) ONE (08:31)
[2020-09-18] MEDS ORDERED: PROPOFOL 10 MG/ML 20 ML VIAL IV ONE (08:31)
[2020-09-18] MEDS ORDERED: KETOROLAC 15 MG/ML 1 ML VIAL ONE (08:31)
[2020-09-18] MEDS ORDERED: ePHEDrine SULFATE/0.9% NACL/PF 50 MG/5 ML SYRINGE IV ONE (08:31)
[2020-09-18] MEDS ORDERED: fentaNYL (PF) 50 MCG/ML 2 ML AMP ONE (08:31)
[2020-09-18 08:40] LABS: Basophils % (A) 1 %; Eosinophils # (A) 0.1 k/uL (0-0.7); Eosinophils % (A) 2 %; HCT 25.3 % (34.0-46.0); Lymphocytes # (A) 1.1 k/uL (1.0-4.8); Lymphocytes % (A) 21 %; MCH 28.5 pg (25.0-35.0); MCHC 33.7 g/dL (31.0-37.0); MCV 84.5 fL (80.0-100.0); Mean Platelet Volume 11.9; Monocytes # (A) 0.3 k/uL (0-1.0); Monocytes % (A) 7 %; Neutrophils # (A) 3.4 k/uL (1.3-7.7); Neutrophils % (A) 67 %; Poikilocytosis Slight; RDW 13.8 % (11.5-15.5); WBC 5.1 k/uL (3.8-10.6)
[2020-09-18 08:42] LABS: HGB 8.5 gm/dL (11.4-16.0)
[2020-09-18 08:55] LABS: Large Platelets Present; Platelet Count 166 k/uL (150-450)
[2020-09-18 08:56] LABS: Polychromasia Present
--- NOTE | 2020-09-18 09:06 | P.OP ---
Date of Procedure: 09/18/20 Preoperative Diagnosis: Dysfunctional uterine bleeding, thickened endometrium Postoperative Diagnosis: Same with polyps visualized Procedure(s) Performed: D&C with hysteroscopy and Pap smear Anesthesia: SESAR Surgeon: José Miguel Boucher Estimated Blood Loss (ml): 5 IV fluids (ml): 300 Pathology: other (Pap smear and uterine curettings) Condition: stable Disposition: same day Operative Findings: Pathology pending. Polyps visualized on hysteroscopy Description of Procedure: Patient was taken to the operating suite where a general anesthetic was found be adequate. She was prepped and draped in the normal sterile fashion and placed in dorsal lithotomy position. Initially a weighted speculum inserted in the vagina and the anterior lip of the cervix identified and grasped with single- tooth tenaculum. Cervix was then dilated and sounded to 14 cm. Camera was then inserted with the polyp noted. Otherwise disordered proliferative endometrium appeared present. Sharp curettings were then obtained following removal of the camera. All tissues collected, placed on Telfa and sent to pathology for evaluation. At the conclusion of the procedure, all instruments removed. And patient was taken to the recovery room in stable and satisfactory condition. Plan - Discharge Summary Discharge Rx Participant: Yes New Discharge Prescriptions: New Ibuprofen [Motrin] 600 mg PO Q6HR PRN #30 tab PRN Reason: Pain No Action Triamterene/Hydrochlorothiazid [Triamterene-Hctz 37.5-25 mg Tb] 1 tab PO QAM Ferrous Sulfate [Feosol] 325 mg PO DAILY Metoprolol Succinate (ER) [Toprol XL] 50 mg PO QAM Ergocalciferol [Vitamin D2 (DRISDOL)] 50,000 unit PO WE Magnesium Chloride [Slow-Mag] 64 mg PO DAILY metFORMIN HCL [Glucophage] 500 mg PO BID Apixaban [Eliquis] 5 mg PO BID Losartan Potassium 50 mg PO HS clonazePAM [KlonoPIN] 1 mg PO BID Discharge Medication List Triamterene/Hydrochlorothiazid [Triamterene-Hctz 37.5-25 mg Tb] 1 tab PO QAM 05/03/15 [History] Ferrous Sulfate [Feosol] 325 mg PO DAILY 08/19/18 [History] Metoprolol Succinate (ER) [Toprol XL] 50 mg PO QAM 08/19/18 [History] Ergocalciferol [Vitamin D2 (DRISDOL)] 50,000 unit PO WE 10/10/18 [History] Magnesium Chloride [Slow-Mag] 64 mg PO DAILY 10/10/18 [History] Apixaban [Eliquis] 5 mg PO BID 07/15/19 [History] Losartan Potassium 50 mg PO HS 07/15/19 [History] metFORMIN HCL [Glucophage] 500 mg PO BID 07/15/19 [History] Ibuprofen [Motrin] 600 mg PO Q6HR PRN #30 tab 09/18/20 [Rx] clonazePAM [KlonoPIN] 1 mg PO BID 09/18/20 [History] Follow up Appointment(s)/Referral(s): José Miguel Boucher DO [Doctor of Osteopathic Medicine] - 10 Days Activity/Diet/Wound Care/Special Instructions: Heavy lifting, limit stairs and driving, and pelvic rest. If any high temperatures, heavy bleeding, or severe pain call my office Discharge Disposition: HOME SELF-CARE
[2020-09-18 09:30] LABS: Glucose,Whole Blood 172 mg/dL (75-99)
[2020-09-18 10:05] VITALS: BP 111/68; PULSE 56
== END 2020-09-18 10:45 | disposition home or self-care (01) ==
LOC: OR 07:20
PROVIDERS: ATTEND Obstetrics & Gynecology
DX: N84.0 Polyp of corpus uteri (principal); R93.89 Abnormal findings on diagnostic imaging of other specified body structures; N93.8 Other specified abnormal uterine and vaginal bleeding; E11.9 Type 2 diabetes mellitus without complications; I10 Essential (primary) hypertension; I48.91 Unspecified atrial fibrillation; Z79.01 Long term (current) use of anticoagulants; F41.9 Anxiety disorder, unspecified; F32.9 Major depressive disorder, single episode, unspecified; F43.10 Post-traumatic stress disorder, unspecified; G47.33 Obstructive sleep apnea (adult) (pediatric); Z88.8 Allergy status to other drugs, medicaments and biological substances
CPT/HCPCS: 81025; 88305; 85025; 58558; J2250; J0330; J1100; J2405; J2001; J3010; J1885; J2704

== ENCOUNTER 2021-04-25 11:31 | Inpatient (IN) | payer BC ==
[2021-04-25] MEDS ORDERED: SODIUM CHLORIDE 0.9% 1,000 ML IV ONE (11:59)
--- NOTE | 2021-04-25 12:02 | ED ---
General Adult HPI - General Chief complaint: Arrhythmia/Palpitations Stated complaint: AFIB Time Seen by Provider: 04/25/21 11:41 Source: patient, RN notes reviewed, old records reviewed Mode of arrival: ambulatory Limitations: no limitations - History of Present Illness Initial comments: 50-year-old female presenting with palpitations. 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 She is currently on metoprolol she took an extra dose yesterday evening but this did not resolve her symptoms. Symptoms began yesterday evening and has persisted. She was sent from the linter operator office to the emergency department for evaluation. She has no chest pain or dyspnea. No lower extremity pain or swelling. She is anticoagulated. - Related Data Home Medications Medication Instructions Recorded Confirmed Triamterene/Hydrochlorothiazid 1 tab PO DAILY 05/03/15 04/25/21 [Triamterene-Hctz 37.5-25 mg Tb] Ferrous Sulfate [Feosol] 325 mg PO DAILY 08/19/18 04/25/21 Metoprolol Succinate (ER) [Toprol 50 mg PO DAILY 08/19/18 04/25/21 XL] Apixaban [Eliquis] 5 mg PO BID 07/15/19 04/25/21 Losartan Potassium 50 mg PO HS 07/15/19 04/25/21 metFORMIN HCL [Glucophage] 500 mg PO BID 07/15/19 04/25/21 Ergocalciferol [Vitamin D2 (1250 1,250 mcg PO WE 04/25/21 04/25/21 Mcg = 59550 Iu)] Magnesium Oxide [Mag-Ox] 400 mg PO DAILY 04/25/21 04/25/21 Medroxyprogesterone Acetate 10 mg PO DAILY 04/25/21 04/25/21 [Provera] Metoprolol Tartrate [Lopressor] 25 mg PO DAILY PRN 04/25/21 04/25/21 Pravastatin Sodium [Pravachol] 10 mg PO HS 04/25/21 04/25/21 clonazePAM [KlonoPIN] 0.5 - 1 mg PO HS PRN 04/25/21 04/25/21 Allergies Allergy/AdvReac Type Severity Reaction Status Date / Time venom-honey bee Allergy Swelling Verified 04/25/21 14:10 [bee venom (honey bee)] at site of sting lisinopril AdvReac Cough Verified 04/25/21 14:10 venlafaxine [From Effexor] AdvReac Hallucinati Verified 04/25/21 14:10 ons Review of Systems ROS Statement: Those systems with pertinent positive or pertinent negative responses have been documented in the HPI. ROS Other: All systems not noted in ROS Statement are negative. Past Medical History Past Medical History: Atrial Fibrillation, Hypertension Additional Past Medical History / Comment(s): anemia History of Any Multi-Drug Resistant Organisms: None Reported Past Surgical History: Section Additional Past Surgical History / Comment(s): D &C 09/2018 Past Anesthesia/Blood Transfusion Reactions: No Reported Reaction Past Psychological History: Anxiety, Depression Smoking Status: Never smoker Past Alcohol Use History: Rare Past Drug Use History: None Reported - Past Family History Father Family Medical History: Hyperlipidemia, Osteoarthritis (OA) Mother Family Medical History: Asthma, Thyroid Disorder Additional Family Medical History / Comment(s): GRAVES DISEASE. PT'S MOM IN HER SLEEP AT AGE OF 63 AFTER SURGERY. General Exam Limitations: no limitations General appearance: alert, in no apparent distress Head exam: Present: atraumatic, normocephalic Eye exam: Present: normal appearance, PERRL, EOMI ENT exam: Present: normal exam Neck exam: Present: normal inspection. Absent: tenderness, meningismus Respiratory exam: Present: normal lung sounds bilaterally. Absent: respiratory distress, wheezes Cardiovascular Exam: Present: tachycardia, irregular rhythm GI/Abdominal exam: Present: soft. Absent: distended, tenderness, guarding Extremities exam: Present: normal inspection, normal capillary refill. Absent: pedal edema, calf tenderness Neurological exam: Present: alert, oriented X3, CN II-XII intact. Absent: motor sensory deficit Psychiatric exam: Present: normal affect, normal mood Skin exam: Present: warm, dry, intact. Absent: cyanosis, diaphoretic Course Vital Signs 04/25/21 04/25/21 04/25/21 11:33 11:45 12:17 Temperature 97.8 F Pulse Rate 81 137 H Pulse Rate [ 155 H Space Physicist ] Respiratory 18 16 Rate Blood Pressure 124/83 103/77 O2 Sat by Pulse 98 95 Oximetry 04/25/21 04/25/21 04/25/21 13:05 13:49 14:10 Temperature Pulse Rate 113 H 138 H 129 H Pulse Rate [ Space Physicist ] Respiratory 16 16 16 Rate Blood Pressure 103/81 98/66 102/76 O2 Sat by Pulse 98 98 98 Oximetry EKG Findings - EKG Comments: EKG Findings:: EKG: H fibrillation with RVR LVH, ST segment depression in the lateral precordial leads, rate of 150, QRS duration 96, QTC 417 Medical Decision Making - Medical Decision Making 50-year-old female 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 No chest pain. Stable blood pressure. Patient initially started on metoprolol without significant improvement in heart rate. I discussed case with Dr. Mcdaniel, covering for cardiology. Will initiate Cardizem in the emergency department. Admitted to monitored bed. Case discussed with Dr. Hazel who will admit. Laboratory studies the is unremarkable. - Lab Data Result diagrams: 04/25/21 11:56 04/25/21 11:56 Lab Results 04/25/21 04/25/21 04/25/21 Range/Units 11:56 11:56 11:56 WBC 7.6 (3.8-10.6) k/uL RBC 4.90 (3.80-5.40) m/uL Hgb 14.1 (11.4-16.0) gm/dL Hct 42.3 (34.0-46.0) % MCV 86.3 (80.0-100.0) fL MCH 28.7 (25.0-35.0) pg MCHC 33.3 (31.0-37.0) g/dL RDW 13.2 (11.5-15.5) % Plt Count 160 (150-450) k/uL MPV 12.5 Neutrophils % 73 % Lymphocytes % 17 % Monocytes % 6 % Eosinophils % 1 % Basophils % 1 % Neutrophils # 5.5 (1.3-7.7) k/uL Lymphocytes # 1.3 (1.0-4.8) k/uL Monocytes # 0.4 (0-1.0) k/uL Eosinophils # 0.1 (0-0.7) k/uL Basophils # 0.0 (0-0.2) k/uL Manual Slide Review Performed Large Platelets Present RBC Morphology Normal PT 10.3 (9.0-12.0) sec INR 0.9 (<1.2) APTT 24.5 (22.0-30.0) sec Sodium 135 L (137-145) mmol/L Potassium 4.1 (3.5-5.1) mmol/L Chloride 107 (98-107) mmol/L Carbon Dioxide 19 L (22-30) mmol/L Anion Gap 9 mmol/L BUN 11 (7-17) mg/dL Creatinine 0.62 (0.52-1.04) mg/dL Est GFR (CKD-EPI)AfAm >90 (>60 ml/min/1.73 sqM) Est GFR (CKD-EPI)NonAf >90 (>60 ml/min/1.73 sqM) Glucose 163 H (74-99) mg/dL Calcium 8.4 (8.4-10.2) mg/dL Magnesium 2.0 (1.6-2.3) mg/dL Total Bilirubin 1.4 H (0.2-1.3) mg/dL AST 27 (14-36) U/L ALT 17 (4-34) U/L Alkaline Phosphatase 28 L (38-126) U/L Troponin I (0.000-0.034) ng/mL Total Protein 7.2 (6.3-8.2) g/dL Albumin 4.0 (3.5-5.0) g/dL TSH 1.480 (0.465-4.680) mIU/L 04/25/21 Range/Units 11:56 WBC (3.8-10.6) k/uL RBC (3.80-5.40) m/uL Hgb (11.4-16.0) gm/dL Hct (34.0-46.0) % MCV (80.0-100.0) fL MCH (25.0-35.0) pg MCHC (31.0-37.0) g/dL RDW (11.5-15.5) % Plt Count (150-450) k/uL MPV Neutrophils % % Lymphocytes % % Monocytes % % Eosinophils % % Basophils % % Neutrophils # (1.3-7.7) k/uL Lymphocytes # (1.0-4.8) k/uL Monocytes # (0-1.0) k/uL Eosinophils # (0-0.7) k/uL Basophils # (0-0.2) k/uL Manual Slide Review Large Platelets RBC Morphology PT (9.0-12.0) sec INR (<1.2) APTT (22.0-30.0) sec Sodium (137-145) mmol/L Potassium (3.5-5.1) mmol/L Chloride (98-107) mmol/L Carbon Dioxide (22-30) mmol/L Anion Gap mmol/L BUN (7-17) mg/dL Creatinine (0.52-1.04) mg/dL Est GFR (CKD-EPI)AfAm (>60 ml/min/1.73 sqM) Est GFR (CKD-EPI)NonAf (>60 ml/min/1.73 sqM) Glucose (74-99) mg/dL Calcium (8.4-10.2) mg/dL Magnesium (1.6-2.3) mg/dL Total Bilirubin (0.2-1.3) mg/dL AST (14-36) U/L ALT (4-34) U/L Alkaline Phosphatase (38-126) U/L Troponin I <0.012 (0.000-0.034) ng/mL Total Protein (6.3-8.2) g/dL Albumin (3.5-5.0) g/dL TSH (0.465-4.680) mIU/L Critical Care Time Critical Care Time: Yes Total Critical Care Time: 35 Disposition Clinical Impression: Atrial fibrillation with RVR Disposition: ADMITTED IP TO THIS [facility] Condition: Stable Is patient prescribed a controlled substance at d/c from ED?: No Referrals: Joselyn Dougherty III, MD [Primary Care Provider] - 1-2 days Decision to Admit Reason: Admit from EC Decision Date: 04/25/21 Decision Time: 14:43
[2021-04-25] MEDS: METOPROLOL TARTRATE 5 MG/5 ML VIAL IVP SCH ×3 (12:06→12:59)
[2021-04-25 12:18] LABS: INR 0.9 (<1.2); Partial Thromboplastin Time 24.5 sec (22.0-30.0); Prothrombin Time 10.3 sec (9.0-12.0)
[2021-04-25 12:21] LABS: ALT 17 U/L (4-34); AST 27 U/L (14-36); African American GFR (CKD) >90 (>60 ml/min/1.73 sqM); Alkaline Phosphatase 28 U/L (38-126); Anion Gap 9 mmol/L; Blood Urea Nitrogen 11 mg/dL (7-17); Calcium 8.4 mg/dL (8.4-10.2); Carbon Dioxide 19 mmol/L (22-30); Chloride 107 mmol/L (98-107); Glucose 163 mg/dL (74-99); Non-African American GFR(CKD) >90 (>60 ml/min/1.73 sqM); Sodium 135 mmol/L (137-145); Total Bilirubin 1.4 mg/dL (0.2-1.3); Total Protein 7.2 g/dL (6.3-8.2)
[2021-04-25 12:27] LABS: Basophils % (A) 1 %; Eosinophils # (A) 0.1 k/uL (0-0.7); Eosinophils % (A) 1 %; HCT 42.3 % (34.0-46.0); HGB 14.1 gm/dL (11.4-16.0); Lymphocytes # (A) 1.3 k/uL (1.0-4.8); Lymphocytes % (A) 17 %; MCH 28.7 pg (25.0-35.0); MCHC 33.3 g/dL (31.0-37.0); MCV 86.3 fL (80.0-100.0); Mean Platelet Volume 12.5; Monocytes # (A) 0.4 k/uL (0-1.0); Monocytes % (A) 6 %; Neutrophils # (A) 5.5 k/uL (1.3-7.7); Neutrophils % (A) 73 %; Platelet Count 160 k/uL (150-450); Potassium 4.1 mmol/L (3.5-5.1); RDW 13.2 % (11.5-15.5); WBC 7.6 k/uL (3.8-10.6)
[2021-04-25 12:42] LABS: Large Platelets Present; RBC Morphology Normal
[2021-04-25] MEDS ORDERED: METOPROLOL TARTRATE 5 MG/5 ML VIAL IVP PRN (13:00)
[2021-04-25] MEDS ORDERED: SODIUM CHLORIDE 0.9% 500 ML 500 ML IV ONE (13:33)
[2021-04-25] MEDS ORDERED: DILTIAZEM 125 MG in SODIUM CHLORIDE 0.9% 100 ML IV SCH (14:30)
[2021-04-25] MEDS ORDERED: NALOXONE 0.4 MG/ML 1 ML VIAL IV PRN (14:34)
[2021-04-25] MEDS ORDERED: ACETAMINOPHEN TAB 325 MG TAB PO PRN (14:39)
--- NOTE | 2021-04-25 15:12 | P.CRDCN ---
History of Present Illness Consult date: 04/25/21 History of present illness: The patient is a 50-year-old female, followed by Dr. Mcdaniel history of paroxysmal atrial fibrillation who presented with symptoms of palpitation, started last night associated with with mild dizziness but no chest discomfort or significant dyspnea. She has been anticoagulated. According to her test the first episode of palpitation she had in a while. She is usually active physically without any symptoms and she denies any anginal pain, no PND, orthopnea or peripheral edema. In the emergency room she was noted to be in atrial fibrillation, her blood pressure is under good control and she has a rapid ventricle response. She has a history of hypertension, hyperlipidemia and diabetes, she is a nonsmoker. She has no prior history of myocardial infarction, congestive heart failure or stroke. Her medications include Elequis , metoprolol for rate control and blood pressure control. She is also on pravastatin and losartan. Review of system Respiratory: No history of asthma, bronchitis or recent cough. GI: No nausea, vomiting. No history of peptic ulcer disease. No recent GI bleed. : No hematuria or dysuria. Nervous System: No stroke or seizure. Physical examination 50-year-old female, alert oriented no apparent distress, heart rate in the 110's and blood pressure in the 100 systolic General: The patient is awake and alert, in no distress, and does not appear acutely ill. Skin: Skin is warm and dry and no rashes or lesions are noted. Eye: Pupils are equal, round and reactive to light, extra-ocular movements are intact; there is normal conjunctiva bilaterally. Ears, nose, mouth and throat: There are moist mucous membranes and no oral lesions. Neck: The neck is supple, there is no tenderness or JVD. Cardiovascular: There is a Irregular rate and rhythm. No murmur, rub or gallop is appreciated. Respiratory: Lungs are clear to auscultation, respirations are non-labored, breath sounds are equal. Gastrointestinal: Soft, non-distended, non-tender abdomen without masses or organomegaly noted. There is no rebound or guarding present. Bowel sounds are unremarkable. Back: There is no tenderness to palpation in the midline. There is no obvious deformity. Musculoskeletal: Normal ROM, no tenderness, There is no pedal edema. There is no calf tenderness or swelling. No cords were appreciated. Neurological: CN II-XII intact, Cranial nerves III through XII are intact. There are no obvious motor or sensory deficits. Coordination appears grossly intact. Speech is normal. Psychiatric: Cooperative, appropriate mood & affect, normal judgment. Lab data showed a troponin less than 0.012, EKG with atrial fibrillation, rapid ventricle response with no acute changes. Impression: 1. [ Atrial fibrillation, rapid ventricle response, anticoagulated] 2. [ History of hypertension] 3. [ History of diabetes] 4. [ History of hyperlipidemia] Plan: 1. [ Restart anticoagulation and beta faisal] 2. [ IV Cardizem to control heart rate] 3. [ Obtain an echocardiogram with Doppler] 4. [ Follow lab data] 5. [ Depending on her progress and if she does not convert to sinus mechanism consider antiarrhythmic drugs or cardioversion. Thank you for this consult we will follow with you.] Past Medical History Past Medical History: Atrial Fibrillation, Hypertension Additional Past Medical History / Comment(s): anemia History of Any Multi-Drug Resistant Organisms: None Reported Past Surgical History: Section Additional Past Surgical History / Comment(s): D &C 09/2018 Past Anesthesia/Blood Transfusion Reactions: No Reported Reaction Past Psychological History: Anxiety, Depression Smoking Status: Never smoker Past Alcohol Use History: Rare Past Drug Use History: None Reported - Past Family History Father Family Medical History: Hyperlipidemia, Osteoarthritis (OA) Mother Family Medical History: Asthma, Thyroid Disorder Additional Family Medical History / Comment(s): GRAVES DISEASE. PT'S MOM IN HER SLEEP AT AGE OF 63 AFTER SURGERY. Medications and Allergies Home Medications Medication Instructions Recorded Confirmed Type Triamterene/Hydrochlorothiazid 1 tab PO DAILY 05/03/15 04/25/21 History [Triamterene-Hctz 37.5-25 mg Tb] Ferrous Sulfate [Feosol] 325 mg PO DAILY 08/19/18 04/25/21 History Metoprolol Succinate (ER) [Toprol 50 mg PO DAILY 08/19/18 04/25/21 History XL] Apixaban [Eliquis] 5 mg PO BID 07/15/19 04/25/21 History Losartan Potassium 50 mg PO HS 07/15/19 04/25/21 History metFORMIN HCL [Glucophage] 500 mg PO BID 07/15/19 04/25/21 History Ergocalciferol [Vitamin D2 (1250 1,250 mcg PO WE 04/25/21 04/25/21 History Mcg = 19354 Iu)] Magnesium Oxide [Mag-Ox] 400 mg PO DAILY 04/25/21 04/25/21 History Medroxyprogesterone Acetate 10 mg PO DAILY 04/25/21 04/25/21 History [Provera] Metoprolol Tartrate [Lopressor] 25 mg PO DAILY PRN 04/25/21 04/25/21 History Pravastatin Sodium [Pravachol] 10 mg PO HS 04/25/21 04/25/21 History clonazePAM [KlonoPIN] 0.5 - 1 mg PO HS PRN 04/25/21 04/25/21 History Allergies Allergy/AdvReac Type Severity Reaction Status Date / Time venom-honey bee Allergy Swelling Verified 04/25/21 14:10 [bee venom (honey bee)] at site of sting lisinopril AdvReac Cough Verified 04/25/21 14:10 venlafaxine [From Effexor] AdvReac Hallucinati Verified 04/25/21 14:10 ons Physical Exam Vitals: Vital Signs Temp Pulse Pulse Resp BP Pulse Ox 04/25/21 14:10 129 H 16 102/76 98 04/25/21 13:49 138 H 16 98/66 98 04/25/21 13:05 113 H 16 103/81 98 04/25/21 12:17 137 H 16 103/77 95 04/25/21 11:45 155 H 04/25/21 11:33 97.8 F 81 18 124/83 98 Intake and Output 04/25/21 04/25/21 04/25/21 06:59 14:59 22:59 Other: Weight 149.685 kg Results 04/25/21 11:56 04/25/21 11:56 Cardiac Enzymes 04/25/21 04/25/21 Range/Units 11:56 11:56 AST 27 (14-36) U/L Troponin I <0.012 (0.000-0.034) ng/mL Coagulation 04/25/21 Range/Units 11:56 PT 10.3 (9.0-12.0) sec APTT 24.5 (22.0-30.0) sec CBC 04/25/21 Range/Units 11:56 WBC 7.6 (3.8-10.6) k/uL RBC 4.90 (3.80-5.40) m/uL Hgb 14.1 (11.4-16.0) gm/dL Hct 42.3 (34.0-46.0) % Plt Count 160 (150-450) k/uL Comprehensive Metabolic Panel 04/25/21 Range/Units 11:56 Sodium 135 L (137-145) mmol/L Potassium 4.1 (3.5-5.1) mmol/L Chloride 107 (98-107) mmol/L Carbon Dioxide 19 L (22-30) mmol/L BUN 11 (7-17) mg/dL Creatinine 0.62 (0.52-1.04) mg/dL Glucose 163 H (74-99) mg/dL Calcium 8.4 (8.4-10.2) mg/dL AST 27 (14-36) U/L ALT 17 (4-34) U/L Alkaline Phosphatase 28 L (38-126) U/L Total Protein 7.2 (6.3-8.2) g/dL Albumin 4.0 (3.5-5.0) g/dL Current Medications Generic Name Dose Route Start Last Admin Trade Name Freq PRN Reason Stop Dose Admin Acetaminophen 650 mg 04/25/21 14:39 Acetaminophen Tab 325 Mg Tab PO Q6HR PRN Mild Pain or Fever > 100.5 Apixaban 5 mg 04/25/21 21:00 Apixaban 5 Mg Tab PO BID [facility] Protocol Diltiazem HCl 125 mg/ Sodium 125 mls @ 5 mls/hr 04/25/21 14:30 Chloride IV .Q24H RHYS 5 MG/HR Losartan Potassium 50 mg 04/25/21 21:00 Losartan 50 Mg Tab PO HS [facility] Metoprolol Succinate 50 mg 04/26/21 09:00 Metoprolol Succinate (Er) 50 Mg Tab.Er.24h PO DAILY [facility] Metoprolol Tartrate 2.5 mg 04/25/21 13:00 Metoprolol Tartrate 5 Mg/5 Ml Vial IVP 04/25/21 23:00 Q5M PRN PER Naloxone HCl 0.2 mg 04/25/21 14:34 Naloxone 0.4 Mg/Ml 1 Ml Vial IV Q2M PRN Opioid Reversal Pravastatin Sodium 10 mg 04/25/21 21:00 Pravastatin Sodium 20 Mg Tab PO HS [facility] Triamterene/Hydrochlorothiazide 1 each 04/26/21 09:00 Triamterene-Hctz 37.5-25mg 1 Each Tab PO DAILY [facility] Intake and Output 04/25/21 04/25/21 04/25/21 06:59 14:59 22:59 Other: Weight 149.685 kg Patient Weight 04/26/21 06:59 Weight 149.685 kg 04/25/21 11:56 04/25/21 11:56
[2021-04-25 15:56] LABS: Magnesium 2.1 mg/dL (1.6-2.3)
[2021-04-25] MEDS: APIXABAN 5 MG TAB PO SCH (21:15)
[2021-04-25] MEDS: LOSARTAN 50 MG TAB PO SCH (21:16)
[2021-04-25] MEDS: PRAVASTATIN SODIUM 20 MG TAB PO SCH (21:16)
--- NOTE | 2021-04-25 22:40 | P.HPIM ---
History of Present Illness H&P Date: 04/25/21 Chief Complaint: Dizziness Patient is a 50-year-old female with a known history of paroxysmal atrial fibrillation on anticoagulation with Eliquis, diabetes type 2 non-insulin- dependent, hyperlipidemia, anxiety/depression and hypertension was sent to ER from [facility] office due to rapid ventricle rhythm. Patient states that she has been having dizziness since last night associated with palpitations. Denies any complaints of chest pain or shortness of breath. Denies any recent illnesses. No cough or sputum production. No orthopnea no PND. No leg swelling. EKG in the ER showed atrial fibrillation with rapid ventricle rate. Laboratory showed WBC 7.6 hemoglobin 14.1 and platelets 160 Sodium 135 potassium 4.1 chloride 107 bicarb is 19 BUN 11 and creatinine 0.62 total bilirubin level is 1.4 AST 27 ALT 17 alk phos 28 and troponin less than 0.012 and TSH 1.48 and coronavirus PCR not detected. Review of Systems Constitutional: Patient denies any fever or chills . No generalized weakness or weight loss. Abdomen: Patient denied nausea vomiting and diarrhea and abdominal pain. Cardiovascular: Patient denies any chest pain or short of breath+ dizzineess and palpitations. Respiratory: patient denied any cough or sputum production. No shortness of breath Neurologic: Patient denied any numbness or tingling headache. Musculoskeletal: Patient denies any complaints of joint swelling or deformity. Skin: Negative Psychiatric: Negative Endocrine: No heat or cold intolerance. No recent weight gain. Genitourinary: No dysuria or hematuria. All other 14 point ROS negative except the above Past Medical History Past Medical History: Atrial Fibrillation, Hypertension Additional Past Medical History / Comment(s): anemia History of Any Multi-Drug Resistant Organisms: None Reported Past Surgical History: Section Additional Past Surgical History / Comment(s): D &C 09/2018 Past Anesthesia/Blood Transfusion Reactions: No Reported Reaction Past Psychological History: Anxiety, Depression Smoking Status: Never smoker Past Alcohol Use History: Rare Past Drug Use History: None Reported - Past Family History Father Family Medical History: Hyperlipidemia, Osteoarthritis (OA) Mother Family Medical History: Asthma, Thyroid Disorder Additional Family Medical History / Comment(s): GRAVES DISEASE. PT'S MOM IN HER SLEEP AT AGE OF 63 AFTER SURGERY. Medications and Allergies Home Medications Medication Instructions Recorded Confirmed Type Triamterene/Hydrochlorothiazid 1 tab PO DAILY 05/03/15 04/25/21 History [Triamterene-Hctz 37.5-25 mg Tb] Ferrous Sulfate [Feosol] 325 mg PO DAILY 08/19/18 04/25/21 History Metoprolol Succinate (ER) [Toprol 50 mg PO DAILY 08/19/18 04/25/21 History XL] Apixaban [Eliquis] 5 mg PO BID 07/15/19 04/25/21 History Losartan Potassium 50 mg PO HS 07/15/19 04/25/21 History metFORMIN HCL [Glucophage] 500 mg PO BID 07/15/19 04/25/21 History Ergocalciferol [Vitamin D2 (1250 1,250 mcg PO WE 04/25/21 04/25/21 History Mcg = 71641 Iu)] Magnesium Oxide [Mag-Ox] 400 mg PO DAILY 04/25/21 04/25/21 History Medroxyprogesterone Acetate 10 mg PO DAILY 04/25/21 04/25/21 History [Provera] Metoprolol Tartrate [Lopressor] 25 mg PO DAILY PRN 04/25/21 04/25/21 History Pravastatin Sodium [Pravachol] 10 mg PO HS 04/25/21 04/25/21 History clonazePAM [KlonoPIN] 0.5 - 1 mg PO HS PRN 04/25/21 04/25/21 History Allergies Allergy/AdvReac Type Severity Reaction Status Date / Time venom-honey bee Allergy Swelling Verified 04/25/21 14:10 [bee venom (honey bee)] at site of sting lisinopril AdvReac Cough Verified 04/25/21 14:10 venlafaxine [From Effexor] AdvReac Hallucinati Verified 04/25/21 14:10 ons Physical Exam Vitals: Vital Signs Temp Pulse Pulse Resp BP Pulse Ox 04/25/21 20:25 82 04/25/21 18:17 125 H 04/25/21 17:22 85 04/25/21 16:18 105 H 04/25/21 14:10 129 H 16 102/76 98 04/25/21 13:49 138 H 16 98/66 98 04/25/21 13:05 113 H 16 103/81 98 04/25/21 12:17 137 H 16 103/77 95 04/25/21 11:45 155 H 04/25/21 11:33 97.8 F 81 18 124/83 98 Intake and Output 04/25/21 04/25/21 04/25/21 06:59 14:59 22:59 Other: Weight 149.685 kg PHYSICAL EXAMINATION: Patient is lying in the bed comfortably, no acute distress, awake alert and oriented.. HEENT: Normocephalic. Neck is supple. Pupils reactive. Nostrils clear. Oral cavity is moist. Neck reveals no JVD, carotid bruits, or thyromegaly. CHEST EXAMINATION: Trachea is central. Symmetrical expansion. Lung hernandez clear to auscultation and percussion. CARDIAC: Normal S1, S2 with no gallops. No murmurs ABDOMEN: Soft. Bowel sounds normal. No organomegaly. No abdominal bruits. Extremities: reveal no edema. No clubbing or cyanosis Neurologically awake, alert, oriented x3 with well-coordinated movements. No focal deficits noted Skin: No rash or skin lesions. Psychiatric: Cooperative. Nonsuicidal Musculoskeletal: No joint swelling or deformity. Normal range of motion. Results CBC & Chem 7: 04/25/21 11:56 04/25/21 11:56 Labs: Abnormal Lab Results - Last 24 Hours (Table) 04/25/21 Range/Units 11:56 Sodium 135 L (137-145) mmol/L Carbon Dioxide 19 L (22-30) mmol/L Glucose 163 H (74-99) mg/dL Total Bilirubin 1.4 H (0.2-1.3) mg/dL Alkaline Phosphatase 28 L (38-126) U/L Thrombosis Risk Factor Assmnt - DVT/VTE Prophylaxis DVT/VTE Prophylaxis: Pharmacologic Prophylaxis ordered Assessment and Plan Assessment: Atrial fibrillation with rapid ventricular rate Paroxysmal atrial fibrillation on anticoagulation with Eliquis and rate control with metoprolol. Hypertension Diabetes type 2 [id number]. Hyperlipidemia Anxiety/depression Morbid obesity BMI 51.7 DVT prophylaxis patient is already on full anticoagulation Plan: Patient be continued on telemetry monitoring. Started on Cardizem drip for heart rate control and will be started on Eliquis and metoprolol. TSH level is within normal limits. Continue with home blood pressure medication including losartan and follow-up closely. Cardiology was consulted. Time with Patient: Greater than 30
[2021-04-26 06:07] LABS: Glucose,Whole Blood 123 mg/dL (75-99)
[2021-04-26] MEDS ORDERED: METOPROLOL SUCCINATE (ER) 50 MG TAB.ER.24H PO SCH (09:00)
[2021-04-26 09:36] LABS: African American GFR (CKD) >90 (>60 ml/min/1.73 sqM); Anion Gap 6 mmol/L; Blood Urea Nitrogen 11 mg/dL (7-17); Calcium 8.4 mg/dL (8.4-10.2); Carbon Dioxide 25 mmol/L (22-30); Chloride 104 mmol/L (98-107); Glucose 185 mg/dL (74-99); Non-African American GFR(CKD) >90 (>60 ml/min/1.73 sqM); Potassium 3.7 mmol/L (3.5-5.1); Sodium 135 mmol/L (137-145); Total Bilirubin 1.7 mg/dL (0.2-1.3)
[2021-04-26] MEDS: APIXABAN 5 MG TAB PO SCH ×2 (09:45→20:40)
[2021-04-26] MEDS: TRIAMTERENE-HCTZ 37.5-25MG 1 EACH TAB PO SCH (09:46)
--- NOTE | 2021-04-26 10:00 | ECHOF ---
Referral Reason:afib MEASUREMENTS -------- HEIGHT: 170.2 cm WEIGHT: 156.5 kg BP: RVIDd: 3.5 cm (< 3.3) IVSd: 1.4 cm (0.6 - 1.1) LVIDd: 6.2 cm (3.9 - 5.3) LVPWd: 1.4 cm (0.6 - 1.1) IVSs: 1.7 cm LVIDs: 5.0 cm LVPWs: 1.5 cm LA Diam: 4.9 cm (2.7 - 3.8) LAESV Index (A-L): 36.39 ml/m Ao Diam: 3.3 cm (2.0 - 3.7) AV Cusp: 2.5 cm (1.5 - 2.6) LA Diam: 5.0 cm (2.7 - 3.8) MV EXCURSION: 22.256 mm (> 18.000) MV EF SLOPE: 115 mm/s (70 - 150) EPSS: 0.5 cm RAP: 5.00 mmHg RVSP: 30.10 mmHg FINDINGS -------- Atrial fibrillation. This was a technically good study. The left ventricular size is normal. There is moderate concentric left ventricular hypertrophy. O verall left ventricular systolic function is normal with, an EF between 55 - 60 %. The right ventricle is normal in size. LA is moderately dilated 34-39 ml/m2 The right atrial size is normal. The aortic valve is trileaflet, and appears structurally normal. No aortic stenosis or regurgitation. Mild mitral regurgitation is present. Mild tricuspid regurgitation present. Right ventricular systolic pressure is normal at < 35 mmHg. There is no pulmonic regurgitation present. There is no pericardial effusion. CONCLUSIONS -------- 1. The left ventricular size is normal. 2. There is moderate concentric left ventricular hypertrophy. 3. Overall left ventricular systolic function is normal with, an EF between 55 - 60 %. 4. The right ventricle is normal in size. 5. LA is moderately dilated 34-39 ml/m2 6. The right atrial size is normal. 7. The aortic valve is trileaflet, and appears structurally normal. No aortic stenosis or regurgitati on. 8. Mild mitral regurgitation is present. 9. Mild tricuspid regurgitation present. 10. There is no pulmonic regurgitation present. 11. There is no pericardial effusion. 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
[2021-04-26] MEDS ORDERED: METOPROLOL TARTRATE 25 MG TAB PO STA (11:27)
--- NOTE | 2021-04-26 12:44 | P.PN ---
Subjective Progress Note Date: 04/26/21 HISTORY OF PRESENT ILLNESS: The patient is a 50-year-old female, followed by Dr. Mcdaniel history of paroxysmal atrial fibrillation who presented with symptoms of palpitation, started last night associated with with mild dizziness but no chest discomfort or significant dyspnea. She has been anticoagulated. According to her test the first episode of palpitation she had in a while. She is usually active physically without any symptoms and she denies any anginal pain, no PND, o rthopnea or peripheral edema. In the emergency room she was noted to be in atrial fibrillation, her blood pressure is under good control and she has a rapid ventricle response. She has a history of hypertension, hyperlipidemia and diabetes, she is a nonsmoker. She has no prior history of myocardial infarction, congestive heart failure or stroke. Her medications include Elequis , metoprolol for rate control and blood pressure control. She is also on pravastatin and losartan. 04/26/2021 Patient examined this morning at the bedside. Patient denies chest pain or pressure. She denies shortness of breath. She remains in atrial fibrillation with a heart rate in the 90s. She is on a Cardizem drip at 5 mg hour. Echocardiogram completed revealing ejection fraction 55-60%, mild mitral regurgitation, and mild tricuspid regurgitation PHYSICAL EXAM: VITAL SIGNS: Reviewed. GENERAL: Well-developed in no acute distress. NECK: Supple. No JVD or thyromegaly LUNGS: Respirations even and unlabored. Lungs essentially clear to auscultation bilaterally. HEART: Irregular rate and rhythm. S1 and S2 heard. EXTREMITIES: Normal range of motion. No clubbing or cyanosis. Peripheral pulses intact. No lower extremity edema ASSESSMENT: Paroxysmal atrial fibrillation with RVR Hypertension Hyperlipidemia Diabetes PLAN: Continue current cardiac medications Continue anticoagulation with Eliquis Discontinue IV Cardizem Increase metoprolol to 50 mg twice a day Patient may be discharged home this afternoon from a cardiac standpoint and follow up on an outpatient basis Nurse practitioner note has been reviewed by physician. Signing provider agrees with the documented findings, assessment, and plan of care. Objective - Vital Signs Vital signs: Vital Signs Temp 97.4 F L 04/26/21 08:00 Pulse 82 04/26/21 08:00 Resp 16 04/26/21 08:00 BP 141/79 04/26/21 08:00 Pulse Ox 97 04/26/21 08:00 Intake & Output 04/25/21 04/26/21 04/26/21 18:59 06:59 18:59 Intake Total 600 500 Balance 600 500 Weight 156.8 kg 156.8 kg Intake: Oral 600 500 Other: # Voids 3 - Labs CBC & Chem 7: 04/25/21 11:56 04/26/21 08:31 Labs: Abnormal Lab Results - Last 24 Hours (Table) 04/26/21 04/26/21 Range/Units 06:06 08:31 Sodium 135 L (137-145) mmol/L Glucose 185 H (74-99) mg/dL POC Glucose (mg/dL) 123 H (75-99) mg/dL Total Bilirubin 1.7 H (0.2-1.3) mg/dL
[2021-04-26] MEDS ORDERED: clonazePAM 0.5 MG TAB PO PRN (16:33)
[2021-04-26] MEDS: PRAVASTATIN SODIUM 20 MG TAB PO SCH (20:40)
[2021-04-26] MEDS: METOPROLOL SUCCINATE (ER) 50 MG TAB.ER.24H PO SCH (20:41)
[2021-04-26] MEDS: INSULIN ASPART (NovoLOG) 100 UNIT/ML VIAL SQ SCH (20:41)
[2021-04-26] MEDS: LOSARTAN 50 MG TAB PO SCH (20:41)
[2021-04-26 20:48] LABS: Glucose,Whole Blood 177 mg/dL (75-99)
[2021-04-27] MEDS: INSULIN ASPART (NovoLOG) 100 UNIT/ML VIAL SQ SCH ×2 (06:27→12:07)
[2021-04-27 06:30] LABS: Glucose,Whole Blood 133 mg/dL (75-99)
[2021-04-27 08:34] VITALS: RESP 18
[2021-04-27] MEDS: APIXABAN 5 MG TAB PO SCH (08:44)
[2021-04-27] MEDS: METOPROLOL SUCCINATE (ER) 50 MG TAB.ER.24H PO SCH (08:44)
[2021-04-27] MEDS: TRIAMTERENE-HCTZ 37.5-25MG 1 EACH TAB PO SCH (08:44)
[2021-04-27] MEDS ORDERED: medroxyPROGESTERone 10 MG TABLET PO SCH (09:00)
[2021-04-27 11:41] LABS: Glucose,Whole Blood 140 mg/dL (75-99)
--- NOTE | 2021-04-27 11:46 | P.PN ---
Subjective Progress Note Date: 04/27/21 PROGRESS NOTE The patient is a 50-year-old female with known history of paroxysmal atrial fibrillation, she continues to be in atrial fibrillation with controlled ventricular response. She is ambulating without significant difficulties. She denies any dizziness, palpitations or syncope. She continues to be on metoprolol succinate 50 mg twice a day, insulin, losartan 50 mg daily, pravastatin 10 mg daily, Maxide once a day and Eliquis 5 mg twice a day. PHYSICAL EXAMINATION: Blood pressure [130/80] heart rate [60] LUNGS: [Clear to auscultation] HEART: [Irregular rate and rhythm, S1, S2. No S3. No systolic murmur] ABDOMEN: [Soft, nontender, no organomegaly] EXTREMETIES: [No edema] IMPRESSION: 1. [ Paroxysmal atrial fibrillation, anticoagulated, rate controlled] 2. [ Hyperlipidemia] 3. [ Obesity] 4. [ Obstructive sleep apnea] PLAN: Continue present therapy and discharged home today to be followed as an outpatient for possible ablation to restore and maintain sinus mechanism. Objective - Vital Signs Vital signs: Vital Signs Temp 98 F 04/27/21 08:00 Pulse 62 04/27/21 08:00 Resp 18 04/27/21 08:00 BP 130/81 04/27/21 08:00 Pulse Ox 98 04/27/21 08:00 Intake & Output 04/26/21 04/27/21 04/27/21 18:59 06:59 18:59 Intake Total 1420 600 Balance 1420 600 Intake: Oral 1420 600 Other: # Voids 5 4 - Labs CBC & Chem 7: 04/25/21 11:56 04/26/21 08:31 Labs: Abnormal Lab Results - Last 24 Hours (Table) 04/26/21 04/26/21 04/27/21 Range/Units 08:31 19:43 06:01 POC Glucose (mg/dL) 177 H 133 H (75-99) mg/dL Hemoglobin A1c 6.9 H (0.0-6.0) % 04/27/21 Range/Units 11:39 POC Glucose (mg/dL) 140 H (75-99) mg/dL Hemoglobin A1c (0.0-6.0) %
[2021-04-27 12:05] VITALS: BP 111/75; PULSE 84; TEMP 98.1
== END 2021-04-27 14:41 | disposition home or self-care (01) | DRG 309 ==
LOC: EC 11:31 → 3SCARD 14:41
PROVIDERS: ADMIT Internal Medicine; ATTEND Internal Medicine
DX: I48.0 Paroxysmal atrial fibrillation (principal); Z68.43 Body mass index [BMI] 50.0-59.9, adult; D64.9 Anemia, unspecified; E11.9 Type 2 diabetes mellitus without complications; E66.01 Morbid (severe) obesity due to excess calories; Z20.822 Contact with and (suspected) exposure to COVID-19; I10 Essential (primary) hypertension; E78.5 Hyperlipidemia, unspecified; I08.1 Rheumatic disorders of both mitral and tricuspid valves; F32.A Depression, unspecified; F41.9 Anxiety disorder, unspecified; G47.33 Obstructive sleep apnea (adult) (pediatric); Z79.01 Long term (current) use of anticoagulants; Z79.84 Long term (current) use of oral hypoglycemic drugs; Z79.899 Other long term (current) drug therapy; Z82.5 Family history of asthma and other chronic lower respiratory diseases; Z91.030 Bee allergy status; Z88.8 Allergy status to other drugs, medicaments and biological substances
CPT/HCPCS: 36415; 80048; 80053; 82247; 83036; 83735; 84443; 84484; 85025; 85610; 85730; 87635; 93005; 93306; 96361; 96374; 99291

== ENCOUNTER → 2021-08-02 | Outpatient (CLI) | payer BC ==
[2021-08-02 18:57] LABS: African American GFR (CKD) 116.3 (60.0-200.0); Anion Gap 9.8 mmol/L (10.00-18.00); Blood Urea Nitrogen 10.8 mg/dL (9.0-27.0); Carbon Dioxide 24.2 mmol/L (20.0-27.5); Non-African American GFR(CKD) 100.3 (60.0-200.0); Potassium 3.8 mmol/L (3.5-5.5)
[2021-08-02 19:39] LABS: HCT 37.1 % (37.2-46.3); HGB 12.5 g/dL (12.0-15.0); MCH 28.7 pg (27.0-32.0); MCHC 33.7 g/dL (32.0-37.0); MCV 85.3 fL (80.0-97.0); Mean Platelet Volume 13.9 fL (9.5-12.2); NRBC Per 100 WBC 0 /100 WBCS (0.0-0.0); Platelet Count 114 X 10*3/uL (140-440); RBC 4.35 X 10*6/uL (4.10-5.20); WBC 6.68 X 10*3/uL (4.50-10.00)
== END | disposition home or self-care (01) ==
LOC: LABPAT 11:51
PROVIDERS: ATTEND Internal Medicine Clinical Cardiac Electrophysiology
DX: Z01.812 Encounter for preprocedural laboratory examination (principal); I48.19 Other persistent atrial fibrillation
CPT/HCPCS: 36415; 80051; 82565; 84520; 85027

== ENCOUNTER 2021-08-08 10:33 | Day surgery (SDC) | payer BC ==
[2021-08-07 08:45] VITALS: BMI 53.2
[2021-08-08] MEDS ORDERED: SODIUM CHLORIDE 0.9% 1,000 ML IV ONE ×2 (10:42→14:40)
[2021-08-08 10:58] LABS: Glucose,Whole Blood 158 mg/dL (75-99)
[2021-08-08 11:19] LABS: Basophils % (A) 0 %; Eosinophils # (A) 0.1 k/uL (0-0.7); Eosinophils % (A) 1 %; HCT 40.4 % (34.0-46.0); HGB 13.9 gm/dL (11.4-16.0); Lymphocytes # (A) 1.5 k/uL (1.0-4.8); Lymphocytes % (A) 20 %; MCH 29.6 pg (25.0-35.0); MCHC 34.4 g/dL (31.0-37.0); MCV 85.9 fL (80.0-100.0); Mean Platelet Volume 11.6; Monocytes # (A) 0.5 k/uL (0-1.0); Monocytes % (A) 7 %; Neutrophils # (A) 5.1 k/uL (1.3-7.7); Neutrophils % (A) 68 %; Platelet Count 149 k/uL (150-450); RDW 13.6 % (11.5-15.5); WBC 7.4 k/uL (3.8-10.6)
[2021-08-08 11:27] LABS: African American GFR (CKD) >90 (>60 ml/min/1.73 sqM); Anion Gap 10 mmol/L; Blood Urea Nitrogen 13 mg/dL (7-17); Carbon Dioxide 26 mmol/L (22-30); Chloride 102 mmol/L (98-107); Glucose 159 mg/dL (74-99); Non-African American GFR(CKD) >90 (>60 ml/min/1.73 sqM); Sodium 138 mmol/L (137-145)
[2021-08-08] MEDS ORDERED: HYDROmorphone (PF) 1 MG/ML ONE (11:29)
[2021-08-08] MEDS ORDERED: ePHEDrine 50 MG/ML 1 ML VIAL ONE (11:29)
[2021-08-08] MEDS ORDERED: ONDANSETRON 4 MG/2 ML VIAL ONE ×2 (11:29→14:55)
[2021-08-08] MEDS ORDERED: fentaNYL (PF) 50 MCG/ML 2 ML AMP ONE (11:29)
[2021-08-08] MEDS ORDERED: PROTAMINE SULFATE 10 MG/ML 5 ML VIAL IV ONE (11:29)
[2021-08-08] MEDS ORDERED: HEPARIN SODIUM,PORCINE 10,000 UNIT/ML 1 ML VIAL ONE (11:29)
[2021-08-08] MEDS ORDERED: MIDAZOLAM 2 MG/2 ML VIAL ONE (11:29)
[2021-08-08] MEDS ORDERED: LIDOCAINE 2% INJ 20 MG/ML (2 ML VIAL) ONE (11:29)
[2021-08-08] MEDS ORDERED: PROPOFOL 10 MG/ML 20 ML VIAL IV ONE (11:29)
[2021-08-08] MEDS ORDERED: SUCCINYLCHOLINE CHLORIDE 100 MG/5 ML SYR IV ONE (11:29)
[2021-08-08] MEDS ORDERED: HEPARIN SOD,PORK IN 0.45% NACL 25,000 UNIT in 0.45% NACL 1 250ML.BAG IV ONE (12:00)
[2021-08-08 12:06] LABS: Large Platelets Present; RBC Morphology Normal
[2021-08-08] MEDS ORDERED: LIDOCAINE 1% INJ 10MG/ML (20 ML MDV) SQ ONE (12:18)
[2021-08-08] MEDS ORDERED: IOPAMIDOL-370 100ML BTL INJ ONE (14:25)
[2021-08-08] MEDS ORDERED: SODIUM CHLORIDE 0.9% 500 ML 500 ML IV ONE (14:33)
[2021-08-08] MEDS ORDERED: ONDANSETRON 4 MG/2 ML VIAL IVP ONE (14:55)
[2021-08-08] MEDS ORDERED: ACETAMINOPHEN IV (For NPO) 1,000 MG in EMPTY BAG 1 BAG IVPB ONE (15:03)
[2021-08-08] MEDS ORDERED: ACETAMINOPHEN TAB 325 MG TAB PO PRN (15:03)
[2021-08-08] MEDS ORDERED: METOPROLOL TARTRATE 25 MG TAB PO PRN (15:12)
[2021-08-08] MEDS ORDERED: diphenhydrAMINE 50 MG/ML 1 ML VIAL IVP ONE (15:19)
--- NOTE | 2021-08-08 15:40 | P.EPPROC ---
- EP Procedure Note Electrophysiology Procedure Note: PROCEDURE A. fib ablation for/PB DIAGNOSIS Paroxysmal Atrial fibrillation, symptomatic, refractory to therapy RESULT No left atrial appendage mass seen on intracardiac echo Successful A. fib ablation/pulmonary vein isolation of left-sided veins using cryo-ablation Complete entrance block in left-sided veins confirmed Phrenic nerve paresis during right superior pulmonary vein isolation. Isolation achieved in less than 60 seconds. Paresis at 115 seconds Temperature at that time was -46C Esophageal deflection NO Electrical cardioversion with a synchronized shock across the chest YES PROCEDURE DETAILS Patient was brought to the EP lab in a fasting state after obtaining written informed consent. Procedure performed under general anesthesia Esophagus was intubated. Esophageal temperature monitoring with circa catheter. Esophageal deflection with an endoscope to avoid hypothermia of the esophagus. After initial muscle relaxant use, muscle relaxants were not given thereafter in order to assess phrenic nerve during procedure. Patient prepped and draped as per protocol Cryo ablation-set up with standard preparation of the cryoablation tools done. Femoral Venous access obtained on the right and left groins and sheaths placed Diagnostic catheters for the high right atrium, phrenic nerve stimulation and pacing, His bundle, coronary sinus placed Intracardiac echo catheter placed. Long sheath placed in the right atrium Left and right transseptal catheterization performed under intracardiac echo guidance. Intravenous heparin with aCT above 300 Later, catheter positioning and balloon positioning in the left atrium and pulmonary veins, under intracardiac echo guidance Diagnostic EP study with coronary sinus pacing and recording Baseline measurements: Sinus cycle length 1160 ms, MN interval 165, QRS 123 and daily 504 During catheter placement atrial fibrillation induced At the end of the procedure elected cardioversion performed successfully with a 200 J biphasic shock Transseptal catheterization performed RA pressure 17/8/13 LA pressure 24/8/50 Transseptal catheterization performed with standard sheath. The cryoablation sheath was then placed with an over the wire exchange without any acute complications. The cryoablation balloon was placed in the office of each pulmonary vein and left-sided pulmonary veins were isolated. IV dye was injected to confirm occlusion. Goal: achieve complete occlusion of the pulmonary vein, achieve -30 degrees C at 30 seconds and achieve -40 degrees C at 60 seconds and a time to effect of less than 60 seconds. If not, the balloon was repositioned to obtain this result After completion of Cryoblation with durations from 180-240 seconds, entrance block was confirmed with the Attain circular catheter in a roving fashion around the antrum of the pulmonary veins During right superior pulmonary vein cryoablation, isolation achieved in 60 seconds, phrenic nerve paresis in 115 seconds Cryoablation had to be prematurely terminated At the end of the procedure there was a mild recovery of diaphragmatic movement with spontaneous breathing At the end of the procedure the Achieve catheter was once again used to check for entrance block Phrenic nerve stimulation was performed to confirm diaphragmatic stimulation the end of the procedure. Recovery of diaphragmatic movement noted right at the end of the procedure Cine fluoroscopy was performed at the very end of the procedure to confirm movement of both diaphragms with inspiration and expiration At the end of the procedure the patient was extubated Venous sheaths were removed and hemostasis assured with a closure device PROCEDURES PERFORMED Diagnostic EP study CS pacing and recording Left and right transseptal catheterization Catheter the mapping of the tachycardia Intracardiac echocardiography Pulmonary vein isolation with transseptal and comprehensive EPS, 54539 Electrical cardioversion with a synchronized shock across the chest [id number]
--- NOTE | 2021-08-08 15:44 | P.HPCAR ---
History of Present Illness This is Dr. Mcdaniel dictating an H/P on this patient The patient was interviewed and examined IMPRESSION / ASSESSMENT: Paroxysmal septal medicate atrial fibrillation Intolerance to flecainide Increased BMI 54 Hypertension, on medical treatment Patient stable from a cardiac vascular standpoint no cardiac pulmonary issues at this time PLAN: Pulmonary vein isolation Continue ELIQUIS HPI Patient is to have palpitations and is intolerant of flecainide No recent syncope chest pain No fever chills cough expectoration or any sinus drainage ROS: No fever chills or rigors, no cough, phlegm or expectoration, no nausea, vomiting or diarrhea, no hematuria, dysuria, no musculoskeletal complaints, no strokes or seizures, no skin lesions. EXAMINATION: Blood pressure 122/62 mmHg normal heart rate in the 80s Heart sounds S1 and S2 are normal Breath sounds are clear Extremities are warm REVIEW OF LABS, ECG & MEDICAL DATA White count 7.4 Hemoglobin 13.9, hematocrit 40 Sodium 138, potassium 4.0 BUN 13 and creatinine 0.7 Physical Exam Vitals: Vital Signs Temp Pulse Pulse Resp BP Pulse Ox 08/08/21 15:30 84 16 141/63 94 L 08/08/21 15:15 84 16 122/62 94 L 08/08/21 15:06 97.4 F L 86 16 135/63 94 L 08/08/21 11:06 98.8 F 61 16 172/77 99 Intake and Output 08/08/21 08/08/21 08/08/21 06:59 14:59 22:59 Intake Total 647 0 Balance 647 0 Intake: IV 647 0 Other: Weight 156.6 kg Past Medical History Past Medical History: Diabetes Mellitus, Pneumonia, Sleep Apnea/CPAP/BIPAP Additional Past Medical History / Comment(s): hx anemia, see Dr Mcdaniel H&P, seasonal allergies, no cpap used, "pre diabetic", History of Any Multi-Drug Resistant Organisms: None Reported Past Surgical History: Section Additional Past Surgical History / Comment(s): D&C x 2 Past Anesthesia/Blood Transfusion Reactions: No Reported Reaction Smoking Status: Never smoker - Past Family History Father Family Medical History: Hyperlipidemia, Osteoarthritis (OA) Mother History Unknown: Yes Family Medical History: Thyroid Disorder Additional Family Medical History / Comment(s): GRAVES DISEASE. PT'S MOM IN HER SLEEP AT AGE OF 63 AFTER SURGERY. Physical Examination Vital Signs Temp Pulse Pulse Resp BP Pulse Ox 08/08/21 15:30 84 16 141/63 94 L 08/08/21 15:15 84 16 122/62 94 L 08/08/21 15:06 97.4 F L 86 16 135/63 94 L 08/08/21 11:06 98.8 F 61 16 172/77 99 Intake and Output 08/08/21 08/08/21 08/08/21 06:59 14:59 22:59 Intake Total 647 0 Balance 647 0 Intake: IV 647 0 Other: Weight 156.6 kg Results 08/08/21 10:40 08/08/21 10:40 CBC 08/08/21 Range/Units 10:40 WBC 7.4 (3.8-10.6) k/uL RBC 4.70 (3.80-5.40) m/uL Hgb 13.9 (11.4-16.0) gm/dL Hct 40.4 (34.0-46.0) % Plt Count 149 L (150-450) k/uL Comprehensive Metabolic Panel 08/08/21 Range/Units 10:40 Sodium 138 (137-145) mmol/L Potassium 4.0 (3.5-5.1) mmol/L Chloride 102 (98-107) mmol/L Carbon Dioxide 26 (22-30) mmol/L BUN 13 (7-17) mg/dL Creatinine 0.72 (0.52-1.04) mg/dL Glucose 159 H (74-99) mg/dL Calcium 9.0 (8.4-10.2) mg/dL Current Medications Generic Name Dose Route Start Last Admin Trade Name Freq PRN Reason Stop Dose Admin Acetaminophen 650 mg 08/08/21 15:03 Acetaminophen Tab 325 Mg Tab PO Q6HR PRN Mild Pain Apixaban 5 mg 08/08/21 21:00 Apixaban 5 Mg Tab PO BID [facility]YS Protocol Lactated Ringer's 1,000 mls @ 20 mls/hr 08/08/21 06:01 Lactated Ringers IV 09/07/21 06:02 .Q24H RHYS Sodium Chloride 1,000 mls @ 20 mls/hr 08/08/21 06:01 Saline 0.9% IV 09/07/21 06:02 .Q24H [facility]YS Acetaminophen 1,000 mg/ IV 100 mls @ 400 mls/hr 08/08/21 15:03 Solution IVPB 08/08/21 15:17 ONCE ONE Losartan Potassium 75 mg 08/08/21 21:00 Losartan 50 Mg Tab PO HS [facility] Magnesium Oxide 400 mg 08/09/21 09:00 Magnesium Oxide 400 Mg Tab PO DAILY [facility] Metformin HCl 500 mg 08/08/21 21:00 Metformin 500 Mg Tab PO BID [facility] Metoprolol Succinate 25 mg 08/08/21 21:00 Metoprolol Succinate (Er) 25 Mg Tab.Er.24h PO BID [facility] Metoprolol Tartrate 25 mg 08/08/21 15:12 Metoprolol Tartrate 25 Mg Tab PO BID PRN A-Fib Non-Formulary Medication 10 mg 08/09/21 09:00 Pravastatin Sodium [Pravachol] PO DAILY [facility] Sodium Chloride 12 ml 08/08/21 15:03 Sodium Chloride 0.9% Flush 10 Ml Syringe IV Q12HR PRN Line Flush Triamterene/Hydrochlorothiazide 1 each 08/09/21 09:00 Triamterene-Hctz 37.5-25mg 1 Each Tab PO DAILY [facility] Intake and Output 08/08/21 08/08/21 08/08/21 06:59 14:59 22:59 Intake Total 647 0 Balance 647 0 Intake: IV 647 0 Other: Weight 156.6 kg Patient Weight 08/09/21 06:59 Weight 156.6 kg 08/08/21 10:40 08/08/21 10:40
[2021-08-08] MEDS ORDERED: clonazePAM 0.5 MG TAB PO PRN (17:49)
[2021-08-08] MEDS: LACTATED RINGERS 1,000 ML IV SCH (17:56)
[2021-08-08] MEDS: SODIUM CHLORIDE 0.9% 1,000 ML IV SCH (19:16)
[2021-08-08] MEDS: APIXABAN 5 MG TAB PO SCH (20:35)
[2021-08-08] MEDS: METOPROLOL SUCCINATE (ER) 25 MG TAB.ER.24H PO SCH (20:36)
[2021-08-08] MEDS ORDERED: LOSARTAN 25 MG TAB PO SCH (21:00)
[2021-08-09] MEDS: SODIUM CHLORIDE 0.9% 1,000 ML IV SCH (01:47)
[2021-08-09] MEDS: LACTATED RINGERS 1,000 ML IV SCH (01:47)
[2021-08-09] MEDS: METOPROLOL SUCCINATE (ER) 25 MG TAB.ER.24H PO SCH (07:50)
[2021-08-09] MEDS: APIXABAN 5 MG TAB PO SCH (07:51)
[2021-08-09 08:07] VITALS: BP 144/77; RESP 18; TEMP 98.3
[2021-08-09] MEDS ORDERED: TRIAMTERENE-HCTZ 37.5-25MG 1 EACH TAB PO SCH (09:00)
[2021-08-09] MEDS ORDERED: PRAVASTATIN SODIUM 20 MG TAB PO SCH (09:00)
[2021-08-09] MEDS ORDERED: MAGNESIUM OXIDE 400 MG TAB PO SCH (09:00)
--- NOTE | 2021-08-09 09:12 | DS ---
DISCHARGE SUMMARY Iveth Galvan is a 51-year-old female with paroxysmal atrial fibrillation who underwent cryoablation yesterday. She is doing well today, sitting up in a chair and walking around the room. No bleeding problems in the groins. The groins are healing well. No chest discomfort. No sore throat. No breathing trouble. On examination, her breath sounds are fairly equal bilaterally; a few crackles at the right base noted. Air entry is almost equal on both sides now, with a mild reduction on the right side. Heart sounds S1, S2 are normal. No edema. IMPRESSION: 1. Pulmonary vein isolation with cryoablation. 2. Phrenic nerve paresis with right superior pulmonary vein isolation. 3. She will have to be brought back for right-sided pulmonary vein isolation, but after 3 months. PLAN: Continue oral anticoagulants, incentive spirometer. I explained the importance of an incentive spirometer to her. She may go back to work next week. We will see her in the office next week for groin check. After about a month or so, a sniff test will be performed. MMODL / IJN: [id number] /
[2021-08-09 11:52] VITALS: PULSE 66
[2021-08-10] MEDS ORDERED: metFORMIN 500 MG TAB PO SCH (17:30)
== END 2021-08-09 12:47 | disposition home or self-care (01) ==
LOC: CATHEP 10:33 → 6NMEDSUR 14:25 → CATHEP 08-09 12:47
PROVIDERS: ATTEND Internal Medicine Clinical Cardiac Electrophysiology
DX: I48.0 Paroxysmal atrial fibrillation (principal); I10 Essential (primary) hypertension; E11.9 Type 2 diabetes mellitus without complications; E66.9 Obesity, unspecified; Z68.43 Body mass index [BMI] 50.0-59.9, adult; Z79.01 Long term (current) use of anticoagulants; G47.33 Obstructive sleep apnea (adult) (pediatric); Z79.899 Other long term (current) drug therapy; Z88.8 Allergy status to other drugs, medicaments and biological substances
CPT/HCPCS: 92960; 93656; 80048; 85025; 81025; 87635; C1894 ×2; C1769 ×5; C1760; C1730 ×2; C1759; C1893; C1733; C1766; J2250; J2720; J1200; J1644 ×2; J2405; J2001 ×2; J3010; J1170; J0131; J0330; J2704; Q9967; J1790

== ENCOUNTER 2021-08-17 09:29 | Inpatient (IN) | payer BC ==
[2021-08-17] MEDS ORDERED: DILTIAZEM DRIP BOLUS FROM BAG 1 MG SOLN IV ONE (09:57)
--- NOTE | 2021-08-17 09:59 | ED ---
General Adult HPI - General Chief complaint: Shortness of Breath Stated complaint: MARVIN, Rapid HR Time Seen by Provider: 08/17/21 09:50 Source: patient, RN notes reviewed Mode of arrival: wheelchair Limitations: no limitations - History of Present Illness Initial comments: Patient is a pleasant 51-year-old female presenting to the emergency Department with dyspnea and palpitations. Patient has history of atrial fibrillation. Patient did have cardiac ablation done a week ago. There is questionable nerve injury to the right diaphragm. Patient does have shortness of breath which has increased today. Patient has palpitations feeling like rapid heart heartbeat starting around 8:30 this morning also. No chest pain. No leg pain or leg swelling. Patient is on an eliquis secondary to history of atrial fibrillation. - Related Data Home Medications Medication Instructions Recorded Confirmed Triamterene/Hydrochlorothiazid 1 tab PO DAILY 05/03/15 08/08/21 [Triamterene-Hctz 37.5-25 mg Tb] Ferrous Sulfate [Feosol] 325 mg PO DAILY 08/19/18 08/08/21 Apixaban [Eliquis] 5 mg PO BID 07/15/19 08/08/21 Losartan Potassium 75 mg PO HS 07/15/19 08/08/21 metFORMIN HCL [Glucophage] 500 mg PO BID 07/15/19 08/08/21 Ergocalciferol [Vitamin D2 (1250 1,250 mcg PO WE 04/25/21 08/08/21 Mcg = 55590 Iu)] Magnesium Oxide [Mag-Ox] 400 mg PO DAILY 04/25/21 08/08/21 Medroxyprogesterone Acetate 10 mg PO DAILY 04/25/21 08/08/21 [Provera] Pravastatin Sodium [Pravachol] 10 mg PO DAILY 04/25/21 08/08/21 clonazePAM [KlonoPIN] 0.5 - 1 mg PO HS PRN 04/25/21 08/08/21 Cetirizine HCl [Zyrtec] 10 mg PO DAILY 08/07/21 08/08/21 Metoprolol Succinate (ER) [Toprol 25 mg PO BID 08/07/21 08/08/21 XL] Metoprolol Tartrate [Lopressor] 25 mg PO BID PRN 08/07/21 08/08/21 Allergies Allergy/AdvReac Type Severity Reaction Status Date / Time flecainide Allergy Unknown Verified 08/17/21 09:36 venom-honey bee Allergy Swelling Verified 08/17/21 09:36 [bee venom (honey bee)] at site of sting lisinopril AdvReac Cough Verified 08/17/21 09:36 venlafaxine [From Effexor] AdvReac Hallucinati Verified 08/17/21 09:36 ons Review of Systems ROS Statement: Those systems with pertinent positive or pertinent negative responses have been documented in the HPI. ROS Other: All systems not noted in ROS Statement are negative. Constitutional: Denies: fever Eyes: Denies: eye pain ENT: Denies: ear pain Respiratory: Reports: as per HPI, dyspnea Cardiovascular: Reports: as per HPI, palpitations Endocrine: Denies: fatigue Gastrointestinal: Denies: abdominal pain Genitourinary: Denies: dysuria Musculoskeletal: Denies: back pain Skin: Denies: rash Neurological: Denies: weakness Past Medical History Past Medical History: Atrial Fibrillation, Hypertension Additional Past Medical History / Comment(s): anemia History of Any Multi-Drug Resistant Organisms: None Reported Past Surgical History: Section Additional Past Surgical History / Comment(s): D &C 09/2018 Past Anesthesia/Blood Transfusion Reactions: No Reported Reaction Past Psychological History: Anxiety, Depression Smoking Status: Never smoker Past Alcohol Use History: None Reported, Rare Past Drug Use History: None Reported - Past Family History Father Family Medical History: Hyperlipidemia, Osteoarthritis (OA) Mother Family Medical History: Thyroid Disorder Additional Family Medical History / Comment(s): GRAVES DISEASE. PT'S MOM IN HER SLEEP AT AGE OF 63 AFTER SURGERY. General Exam Limitations: no limitations General appearance: alert Head exam: Present: normocephalic Eye exam: Present: normal appearance Neck exam: Present: normal inspection Respiratory exam: Present: normal lung sounds bilaterally Cardiovascular Exam: Present: tachycardia Expanded Peripheral pulses: 2+: Radial (R), Radial (L), Posterior Tibialis (R), Posterior Tibialis (L) GI/Abdominal exam: Present: soft. Absent: tenderness Extremities exam: Present: normal inspection. Absent: pedal edema, calf tenderness Neurological exam: Present: alert Psychiatric exam: Present: normal affect, normal mood Skin exam: Present: normal color Course Vital Signs 08/17/21 08/17/21 08/17/21 09:36 09:57 10:11 Temperature 97.6 F Pulse Rate 60 160 H 138 H Pulse Rate [ [employer] ] Respiratory 16 28 H Rate Blood Pressure 118/69 O2 Sat by Pulse 95 97 Oximetry 08/17/21 10:38 Temperature Pulse Rate Pulse Rate [ 140 H [employer] ] Respiratory Rate Blood Pressure O2 Sat by Pulse Oximetry - Reevaluation(s) Reevaluation #1: 08/17/21 10:49 Patient reevaluated several times. Heart rate has improved to 120 -140. Cardizem increased. Patient updated on results and plan. Dr. Garcia has been recovering Dr. Dougherty. EKG Findings - EKG Comments: EKG Findings:: A. fib with RVR, rate 169. QRS 102. QT 265. QTC 357. Normal axis. Normal QRS. Nonspecific ST-T. Medical Decision Making - Lab Data Result diagrams: 08/17/21 10:01 08/17/21 10:01 Lab Results 08/17/21 08/17/21 08/17/21 Range/Units 10:01 10:01 10:01 WBC 9.8 (3.8-10.6) k/uL RBC 5.02 (3.80-5.40) m/uL Hgb 14.4 (11.4-16.0) gm/dL Hct 43.0 (34.0-46.0) % MCV 85.7 (80.0-100.0) fL MCH 28.7 (25.0-35.0) pg MCHC 33.4 (31.0-37.0) g/dL RDW 12.7 (11.5-15.5) % MPV 12.5 PT 9.9 (9.0-12.0) sec INR 0.9 (<1.2) APTT 24.0 (22.0-30.0) sec Sodium 133 L (137-145) mmol/L Potassium 3.5 (3.5-5.1) mmol/L Chloride 99 (98-107) mmol/L Carbon Dioxide 20 L (22-30) mmol/L Anion Gap 14 mmol/L BUN 14 (7-17) mg/dL Creatinine 0.68 (0.52-1.04) mg/dL Est GFR (CKD-EPI)AfAm >90 (>60 ml/min/1.73 sqM) Est GFR (CKD-EPI)NonAf >90 (>60 ml/min/1.73 sqM) Glucose 292 H (74-99) mg/dL Calcium 9.1 (8.4-10.2) mg/dL Magnesium 1.7 (1.6-2.3) mg/dL Total Bilirubin 1.2 (0.2-1.3) mg/dL AST 20 (14-36) U/L ALT 24 (4-34) U/L Alkaline Phosphatase 31 L (38-126) U/L Troponin I (0.000-0.034) ng/mL Total Protein 7.4 (6.3-8.2) g/dL Albumin 4.3 (3.5-5.0) g/dL 08/17/21 Range/Units 10:01 WBC (3.8-10.6) k/uL RBC (3.80-5.40) m/uL Hgb (11.4-16.0) gm/dL Hct (34.0-46.0) % MCV (80.0-100.0) fL MCH (25.0-35.0) pg MCHC (31.0-37.0) g/dL RDW (11.5-15.5) % MPV PT (9.0-12.0) sec INR (<1.2) APTT (22.0-30.0) sec Sodium (137-145) mmol/L Potassium (3.5-5.1) mmol/L Chloride (98-107) mmol/L Carbon Dioxide (22-30) mmol/L Anion Gap mmol/L BUN (7-17) mg/dL Creatinine (0.52-1.04) mg/dL Est GFR (CKD-EPI)AfAm (>60 ml/min/1.73 sqM) Est GFR (CKD-EPI)NonAf (>60 ml/min/1.73 sqM) Glucose (74-99) mg/dL Calcium (8.4-10.2) mg/dL Magnesium (1.6-2.3) mg/dL Total Bilirubin (0.2-1.3) mg/dL AST (14-36) U/L ALT (4-34) U/L Alkaline Phosphatase (38-126) U/L Troponin I 0.022 (0.000-0.034) ng/mL Total Protein (6.3-8.2) g/dL Albumin (3.5-5.0) g/dL - Radiology Data Radiology results: image reviewed (Chest x-ray read as no acute process. I did review this. There appears to be some elevation of right hemidiaphragm.) Critical Care Time Critical Care Time: Yes Total Critical Care Time: 32 Disposition Clinical Impression: Atrial fibrillation with RVR Disposition: ADMITTED IP TO THIS HOSP Is patient prescribed a controlled substance at d/c from ED?: No Referrals: Joselyn Dougherty III, MD [Primary Care Provider] - 1-2 days Time of Disposition: 10:50
[2021-08-17] MEDS: DILTIAZEM 125 MG in SODIUM CHLORIDE 0.9% 100 ML IV SCH (10:07)
--- NOTE | 2021-08-17 10:11 | XR ---
EXAMINATION TYPE: XR chest 1V portable DATE OF EXAM: 08/17/2021 COMPARISON: 07/15/2019 INDICATION: Dysrhythmia TECHNIQUE: Single frontal view of the chest is obtained. FINDINGS: The heart size is normal. The pulmonary vasculature is normal. No suspicious focal consolidation is evident. There is elevation of the right diaphragm. IMPRESSION: 1. No acute pulmonary process.
[2021-08-17 10:25] LABS: ALT 24 U/L (4-34); AST 20 U/L (14-36); African American GFR (CKD) >90 (>60 ml/min/1.73 sqM); Albumin 4.3 g/dL (3.5-5.0); Alkaline Phosphatase 31 U/L (38-126); Anion Gap 14 mmol/L; Blood Urea Nitrogen 14 mg/dL (7-17); Calcium 9.1 mg/dL (8.4-10.2); Carbon Dioxide 20 mmol/L (22-30); Chloride 99 mmol/L (98-107); Glucose 292 mg/dL (74-99); Magnesium 1.7 mg/dL (1.6-2.3); Non-African American GFR(CKD) >90 (>60 ml/min/1.73 sqM); Potassium 3.5 mmol/L (3.5-5.1); Sodium 133 mmol/L (137-145); Total Bilirubin 1.2 mg/dL (0.2-1.3); Total Protein 7.4 g/dL (6.3-8.2)
[2021-08-17 10:33] LABS: INR 0.9 (<1.2); Prothrombin Time 9.9 sec (9.0-12.0)
[2021-08-17 10:38] LABS: Basophils # (A) 0.1 k/uL (0-0.2); Basophils % (A) 1 %; Eosinophils # (A) 0.1 k/uL (0-0.7); Eosinophils % (A) 1 %; HGB 14.4 gm/dL (11.4-16.0); Lymphocytes # (A) 1.4 k/uL (1.0-4.8); Lymphocytes % (A) 15 %; MCH 28.7 pg (25.0-35.0); MCHC 33.4 g/dL (31.0-37.0); MCV 85.7 fL (80.0-100.0); Mean Platelet Volume 12.5; Monocytes # (A) 0.6 k/uL (0-1.0); Monocytes % (A) 6 %; Neutrophils # (A) 7.4 k/uL (1.3-7.7); Neutrophils % (A) 76 %; RBC 5.02 m/uL (3.80-5.40); RDW 12.7 % (11.5-15.5); WBC 9.8 k/uL (3.8-10.6)
[2021-08-17] MEDS ORDERED: LORazepam 2 MG/ML INJ IV PRN (10:50)
[2021-08-17] MEDS ORDERED: NALOXONE 0.4 MG/ML 1 ML VIAL IV PRN (10:50)
[2021-08-17 10:52] LABS: RBC Morphology Normal
[2021-08-17 10:53] LABS: Large Platelets Present; Platelet Count 144 k/uL (150-450)
[2021-08-17] MEDS: INSULIN ASPART (NovoLOG) 100 UNIT/ML VIAL SQ SCH ×3 (15:39→20:56)
[2021-08-17] MEDS ORDERED: clonazePAM 0.5 MG TAB PO PRN (16:16)
[2021-08-17 17:41] LABS: Glucose,Whole Blood 206 mg/dL (75-99)
[2021-08-17] MEDS: LORATADINE 10 MG TAB PO SCH (21:02)
[2021-08-17] MEDS: METOPROLOL SUCCINATE (ER) 25 MG TAB.ER.24H PO SCH (21:02)
[2021-08-17] MEDS: APIXABAN 5 MG TAB PO SCH (21:02)
[2021-08-17] MEDS: LOSARTAN 25 MG TAB PO SCH (23:19)
[2021-08-18] MEDS ORDERED: MAGNESIUM SULFATE-D5W PMX 1 GM in DEXTROSE/WATER 1 100ML.BAG IVPB ONE (00:33)
--- NOTE | 2021-08-18 00:37 | P.HPIM ---
History of Present Illness H&P Date: 08/17/21 Chief Complaint: palpitations Patient is a 51-year-old female with a long history of atrial fibrillation paroxysmal, hypertension, diabetes type 2 [id number], hyperlipidemia, anxiety/depression and morbid obesity presents to ER with complaints of palpitations and shortness of breath. Patient underwent ablation recently on 08/08/2021. There was a question of nerve injury to the right diaphragm and was recommended incentive spirometry. Patient has been having palpitations and increased heart rate started around 830 this morning. Denies any chest pain. No nausea vomiting abdominal pain or diarrhea. No leg swelling. No fever no chills. Chest x-ray showed no acute pulmonary process. EKG showed atrial fibrillation with rapid ventricle response. Laboratory data showed WBC 9.8 hemoglobin 14.4 and platelets 144 INR 0.9 Sodium 133 potassium 3.5 chloride 99 bicarb is 20 BUN 14 and creatinine 0.68 and blood sugar 292 Calcium 9.1 magnesium 1.7, troponin x3 negative and TSH 1.57 Review of Systems Constitutional: Patient denies any fever or chills . No generalized weakness or weight loss. Abdomen: Patient denied nausea vomiting and diarrhea and abdominal pain. Cardiovascular: Patient denies any chest pain .+short of breath .+ palpitations. Respiratory: patient denied any cough or sputum production. No shortness of breath Neurologic: Patient denied any numbness or tingling headache. Musculoskeletal: Patient denies any complaints of joint swelling or deformity. Skin: Negative Psychiatric: Negative Endocrine: No heat or cold intolerance. No recent weight gain. Genitourinary: No dysuria or hematuria. All other 14 point ROS negative except the above Past Medical History Past Medical History: Atrial Fibrillation, Hypertension Additional Past Medical History / Comment(s): anemia History of Any Multi-Drug Resistant Organisms: None Reported Past Surgical History: Section Additional Past Surgical History / Comment(s): D &C 09/2018 Past Anesthesia/Blood Transfusion Reactions: No Reported Reaction Past Psychological History: Anxiety, Depression Smoking Status: Never smoker Past Alcohol Use History: None Reported, Rare Past Drug Use History: None Reported - Past Family History Father Family Medical History: Hyperlipidemia, Osteoarthritis (OA) Mother Family Medical History: Thyroid Disorder Additional Family Medical History / Comment(s): GRAVES DISEASE. PT'S MOM IN HER SLEEP AT AGE OF 63 AFTER SURGERY. Medications and Allergies Home Medications Medication Instructions Recorded Confirmed Type Triamterene/Hydrochlorothiazid 1 tab PO DAILY 05/03/15 08/17/21 History [Triamterene-Hctz 37.5-25 mg Tb] Ferrous Sulfate [Feosol] 325 mg PO DAILY 08/19/18 08/17/21 History Apixaban [Eliquis] 5 mg PO BID 07/15/19 08/17/21 History Losartan Potassium 75 mg PO HS 07/15/19 08/17/21 History metFORMIN HCL [Glucophage] 500 mg PO BID 07/15/19 08/17/21 History Ergocalciferol [Vitamin D2 (1250 1,250 mcg PO WE 04/25/21 08/17/21 History Mcg = 05958 Iu)] Magnesium Oxide [Mag-Ox] 400 mg PO DAILY 04/25/21 08/17/21 History Medroxyprogesterone Acetate 10 mg PO DAILY 04/25/21 08/17/21 History [Provera] Pravastatin Sodium [Pravachol] 10 mg PO DAILY 04/25/21 08/17/21 History clonazePAM [KlonoPIN] 0.5 - 1 mg PO HS PRN 04/25/21 08/17/21 History Cetirizine HCl [Zyrtec] 10 mg PO HS 08/07/21 08/17/21 History Metoprolol Tartrate [Lopressor] 25 mg PO DAILY PRN 08/07/21 08/17/21 History Metoprolol Succinate (ER) [Toprol 25 mg PO BID 08/17/21 08/17/21 History Xl] Allergies Allergy/AdvReac Type Severity Reaction Status Date / Time venom-honey bee Allergy Swelling Verified 08/17/21 11:13 [bee venom (honey bee)] at site of sting flecainide AdvReac "v-tach" Verified 08/17/21 11:13 lisinopril AdvReac Cough Verified 08/17/21 11:13 venlafaxine [From Effexor] AdvReac Vertigo Verified 08/17/21 11:13 Physical Exam Vitals: Vital Signs Temp Pulse Pulse Resp BP Pulse Ox 08/17/21 15:34 105 H 16 98 08/17/21 12:15 115 H 16 117/53 98 08/17/21 12:08 137 H 18 101/56 98 08/17/21 10:57 125 H 18 109/71 97 08/17/21 10:38 140 H 08/17/21 10:11 138 H 08/17/21 09:57 160 H 28 H 118/69 97 08/17/21 09:36 97.6 F 60 16 95 Intake and Output 08/17/21 08/17/21 08/17/21 06:59 14:59 22:59 Intake Total 13.917 Balance 13.917 Intake: Intake, IV Titration 13.917 Amount Diltiazem 125 mg In 13.917 Sodium Chloride 0.9% 100 ml @ 7.5 MG/HR 7.5 mls/hr IV [id number] Rx#: [id number] Other: Weight 108.862 kg PHYSICAL EXAMINATION: Patient is lying in the bed comfortably, no acute distress, awake alert and oriented.. HEENT: Normocephalic. Neck is supple. Pupils reactive. Nostrils clear. Oral cavity is moist. Neck reveals no JVD, carotid bruits, or thyromegaly. CHEST EXAMINATION: Trachea is central. Symmetrical expansion. Lung hernandez clear to auscultation and percussion. CARDIAC: Normal S1, S2 with no gallops. No murmurs Irregularly irregular rhythm. ABDOMEN: Soft. Bowel sounds normal. No organomegaly. No abdominal bruits. Extremities: reveal no edema. No clubbing or cyanosis Neurologically awake, alert, oriented x3 with well-coordinated movements. No focal deficits noted Skin: No rash or skin lesions. Psychiatric: Cooperative. Nonsuicidal Musculoskeletal: No joint swelling or deformity. Normal range of motion. Results CBC & Chem 7: 08/17/21 10:01 08/17/21 10:01 Labs: Abnormal Lab Results - Last 24 Hours (Table) 08/17/21 08/17/21 Range/Units 10:01 10:01 Plt Count 144 L (150-450) k/uL Sodium 133 L (137-145) mmol/L Carbon Dioxide 20 L (22-30) mmol/L Glucose 292 H (74-99) mg/dL Alkaline Phosphatase 31 L (38-126) U/L Thrombosis Risk Factor Assmnt - DVT/VTE Prophylaxis DVT/VTE Prophylaxis: Pharmacologic Prophylaxis ordered Assessment and Plan Assessment: Atrial fibrillation with rapid ventricular rate Paroxysmal atrial fibrillation on anticoagulation and recent cardiac ablation about a week ago. Hypertension Diabetes type 2 [id number] Anxiety/depression Morbid obesity DVT prophylaxis patient is already on full anticoagulation Plan: Patient was started on Cardizem drip. Continue with metoprolol and hold Maxide and losartan. Continue with Eliquis. Cardiology was reconsulted. Continue monitoring and follow-up closely. Continue with incentive spirometry. Time with Patient: Greater than 30
[2021-08-18] MEDS: DILTIAZEM 125 MG in SODIUM CHLORIDE 0.9% 100 ML IV SCH ×2 (02:57→18:28)
[2021-08-18] MEDS: INSULIN ASPART (NovoLOG) 100 UNIT/ML VIAL SQ SCH ×4 (06:59→20:47)
[2021-08-18] MEDS: PRAVASTATIN SODIUM 20 MG TAB PO SCH (09:26)
[2021-08-18] MEDS: MAGNESIUM OXIDE 400 MG TAB PO SCH (09:26)
[2021-08-18] MEDS: APIXABAN 5 MG TAB PO SCH ×2 (09:26→20:54)
[2021-08-18] MEDS: METOPROLOL SUCCINATE (ER) 25 MG TAB.ER.24H PO SCH ×2 (09:26→20:54)
[2021-08-18] MEDS: FERROUS SULFATE 325 MG TAB PO SCH (09:26)
[2021-08-18] MEDS ORDERED: AMIODARONE 360 MG in DEXTROSE 5% IN WATER 200 ML IV ONE ×2 (10:01)
[2021-08-18] MEDS ORDERED: DEXTROSE 5% IN WATER 100 ML with AMIODARONE 150 MG IV ONE (10:01)
--- NOTE | 2021-08-18 10:01 | P.CRDCN ---
History of Present Illness History of present illness: HISTORY OF PRESENTING ILLNESS Patient is pleasant 51-year-old female with history of paroxysmal atrial fibrillation, hypertension, diabetes, obesity, adverse reaction to flecainide reportedly ventricular tachycardia and status post pulmonary vein ablation for A. fib 08/08 who presents with recurrent episode of A. fib with heart rates in the 140s to 150s and fairly symptomatic. She admits to increased shortness breath, palpitations. Since yesterday she has noted mild increase in lower extremity swelling. She did undergo pulmonary vein ablation 08/08/2021 with some phrenic nerve paresis noted during right superior pulmonary vein isolation and therefore recommendations for possible repeat ablation down the road. She denies any new medications. EKG showed atrial fibrillation with heart rate [address] depressions. Troponins are to be normal 3. Patient was placed on Cardizem drip currently at 10 with heart rates better controlled however still very symptomatic with minimal exertion. REVIEW OF SYSTEMS At the time of my exam: CONSTITUTIONAL: Denies fever or chills. CARDIOVASCULAR: Denies chest pain, +shortness of breath, no orthopnea, PND, +palpitations. RESPIRATORY: Denies cough. GASTROINTESTINAL: Denies abdominal pain, diarrhea, constipation, nausea or vomiting. MUSCULOSKELETAL: Denies myalgias. NEUROLOGIC: Denies numbness, tingling or weakness. ENDOCRINE: Denies fatigue, weight change, polydipsia or polyurina. GENITOURINARY: Denies burning, hematuria or urgency with micturation. HEMATOLOGIC: Denies history of anemia or bleeding. PHYSICAL EXAMINATION Vital signs reviewed. CONSTITUTIONAL: No apparent distress. HEENT: Head is normocephalic. Pupils are equal, round. Sclerae anicteric. Mucous membranes of the mouth are moist. No JVD. No carotid bruit. CHEST EXAMINATION: Lungs are clear to auscultation. No chest wall tenderness is noted on palpation or with deep breathing. HEART EXAMINATION: Irregular rate and rhythm. S1, S2 heard. No murmurs, gallops or rub. ABDOMEN: Soft, nontender. Positive bowel sounds. EXTREMITIES: 2+ peripheral pulses, Trace lower extremity edema and no calf tenderness. NEUROLOGIC EXAMINATION: Patient is awake, alert and oriented x3. ASSESSMENT 1. Paroxysmal atrial fibrillation currently better controlled 2. Acute on chronic diastolic heart failure 3. 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 Hypertension 5. Diabetes mellitus type 2 6. Obesity 7. History of ventricular tachycardia with flecainide PLAN Patient is still in atrial fibrillation and very symptomatic. Heart rates have been better controlled on the Cardizem drip however still very symptomatic with minimal exertion. Does have trace lower extremity edema and some component of heart failure and we will add diuretics. Start amiodarone with goal of conversion. Patient will likely benefit from repeat ablation once phrenic nerve recovers. Further recommendations follow. Past Medical History Past Medical History: Atrial Fibrillation, Hypertension Additional Past Medical History / Comment(s): anemia History of Any Multi-Drug Resistant Organisms: None Reported Past Surgical History: Section Additional Past Surgical History / Comment(s): D &C 09/2018 Past Anesthesia/Blood Transfusion Reactions: No Reported Reaction Past Psychological History: Anxiety, Depression Smoking Status: Never smoker Past Alcohol Use History: None Reported, Rare Past Drug Use History: None Reported - Past Family History Father Family Medical History: Hyperlipidemia, Osteoarthritis (OA) Mother Family Medical History: Thyroid Disorder Additional Family Medical History / Comment(s): GRAVES DISEASE. PT'S MOM IN HER SLEEP AT AGE OF 63 AFTER SURGERY. Medications and Allergies Home Medications Medication Instructions Recorded Confirmed Type Triamterene/Hydrochlorothiazid 1 tab PO DAILY 05/03/15 08/17/21 History [Triamterene-Hctz 37.5-25 mg Tb] Ferrous Sulfate [Feosol] 325 mg PO DAILY 08/19/18 08/17/21 History Apixaban [Eliquis] 5 mg PO BID 07/15/19 08/17/21 History Losartan Potassium 75 mg PO HS 07/15/19 08/17/21 History metFORMIN HCL [Glucophage] 500 mg PO BID 07/15/19 08/17/21 History Ergocalciferol [Vitamin D2 (1250 1,250 mcg PO WE 04/25/21 08/17/21 History Mcg = 87252 Iu)] Magnesium Oxide [Mag-Ox] 400 mg PO DAILY 04/25/21 08/17/21 History Medroxyprogesterone Acetate 10 mg PO DAILY 04/25/21 08/17/21 History [Provera] Pravastatin Sodium [Pravachol] 10 mg PO DAILY 04/25/21 08/17/21 History clonazePAM [KlonoPIN] 0.5 - 1 mg PO HS PRN 04/25/21 08/17/21 History Cetirizine HCl [Zyrtec] 10 mg PO HS 08/07/21 08/17/21 History Metoprolol Tartrate [Lopressor] 25 mg PO DAILY PRN 08/07/21 08/17/21 History Metoprolol Succinate (ER) [Toprol 25 mg PO BID 08/17/21 08/17/21 History Xl] Allergies Allergy/AdvReac Type Severity Reaction Status Date / Time venom-honey bee Allergy Swelling Verified 08/17/21 11:13 [bee venom (honey bee)] at site of sting flecainide AdvReac "v-tach" Verified 08/17/21 11:13 lisinopril AdvReac Cough Verified 08/17/21 11:13 venlafaxine [From Effexor] AdvReac Vertigo Verified 08/17/21 11:13 Physical Exam Vitals: Vital Signs Temp Pulse Pulse Pulse Resp BP BP 08/18/21 08:00 97.6 F 73 17 109/75 08/18/21 03:40 98.1 F 83 18 117/74 08/17/21 23:15 81 18 107/67 08/17/21 22:05 109/70 08/17/21 20:45 97.5 F L 86 18 114/78 08/17/21 17:19 96.3 F L 79 16 108/55 08/17/21 16:24 87 16 113/63 08/17/21 15:34 105 H 16 08/17/21 12:15 115 H 16 117/53 08/17/21 12:08 137 H 18 101/56 08/17/21 10:57 125 H 18 109/71 08/17/21 10:38 140 H 08/17/21 10:11 138 H Pulse Ox 08/18/21 08:00 96 08/18/21 03:40 95 08/17/21 23:15 97 08/17/21 22:05 08/17/21 20:45 98 08/17/21 17:19 96 08/17/21 16:24 98 08/17/21 15:34 98 08/17/21 12:15 98 08/17/21 12:08 98 08/17/21 10:57 97 08/17/21 10:38 08/17/21 10:11 Intake and Output 08/17/21 08/18/21 08/18/21 22:59 06:59 14:59 Intake Total 240 111.083 118 Balance 240 111.083 118 Intake: Intake, IV Titration 111.083 Amount Diltiazem 125 mg In 111.083 Sodium Chloride 0.9% 100 ml @ 7.5 MG/HR 7.5 mls/hr IV .[id number] [facility] Rx#: [id number] Oral 240 118 Other: Voiding Method Toilet Toilet # Voids 2 3 Results 08/17/21 10:01 08/17/21 10:01 Cardiac Enzymes 08/17/21 08/17/21 08/17/21 Range/Units 10:01 10:01 12:28 AST 20 (14-36) U/L Troponin I 0.022 0.019 (0.000-0.034) ng/mL 08/17/21 Range/Units 15:31 AST (14-36) U/L Troponin I 0.022 (0.000-0.034) ng/mL Coagulation 08/17/21 Range/Units 10:01 PT 9.9 (9.0-12.0) sec APTT 24.0 (22.0-30.0) sec CBC 08/17/21 Range/Units 10:01 WBC 9.8 (3.8-10.6) k/uL RBC 5.02 (3.80-5.40) m/uL Hgb 14.4 (11.4-16.0) gm/dL Hct 43.0 (34.0-46.0) % Plt Count 144 L (150-450) k/uL Comprehensive Metabolic Panel 08/17/21 Range/Units 10:01 Sodium 133 L (137-145) mmol/L Potassium 3.5 (3.5-5.1) mmol/L Chloride 99 (98-107) mmol/L Carbon Dioxide 20 L (22-30) mmol/L BUN 14 (7-17) mg/dL Creatinine 0.68 (0.52-1.04) mg/dL Glucose 292 H (74-99) mg/dL Calcium 9.1 (8.4-10.2) mg/dL AST 20 (14-36) U/L ALT 24 (4-34) U/L Alkaline Phosphatase 31 L (38-126) U/L Total Protein 7.4 (6.3-8.2) g/dL Albumin 4.3 (3.5-5.0) g/dL Current Medications Generic Name Dose Route Start Last Admin Trade Name Freq PRN Reason Stop Dose Admin Apixaban 5 mg 08/17/21 21:00 08/18/21 09:26 Apixaban 5 Mg Tab PO 5 mg BID [facility] Administration Protocol Clonazepam 0.5 mg 08/17/21 16:16 Clonazepam 0.5 Mg Tab PO HS PRN insomnia/anxiety Ferrous Sulfate 325 mg 08/18/21 09:00 08/18/21 09:26 Ferrous Sulfate 325 Mg Tab PO 325 mg DAILY [facility] Administration Diltiazem HCl 125 mg/ Sodium 125 mls @ 7.5 mls/hr 08/17/21 10:00 08/18/21 02:57 Chloride IV 10 mg/hr .[id number] [facility] 10 mls/hr Administration 7.5 MG/HR Insulin Aspart 0 unit 08/17/21 12:30 08/18/21 06:59 Insulin Aspart (Novolog) 100 Unit/Ml Vial SQ Not Given ACHS [facility] Protocol Loratadine 10 mg 08/17/21 21:00 08/17/21 21:02 Loratadine 10 Mg Tab PO 10 mg HS [facility] Administration Lorazepam 0.5 mg 08/17/21 10:50 Lorazepam 2 Mg/Ml Inj IV Q6HR PRN Anxiety Losartan Potassium 75 mg 08/17/21 21:00 08/17/21 23:19 Losartan 25 Mg Tab PO Not Given HS [facility]YS Magnesium Oxide 400 mg 08/18/21 09:00 08/18/21 09:26 Magnesium Oxide 400 Mg Tab PO 400 mg DAILY [facility] Administration Metoprolol Succinate 25 mg 08/17/21 21:00 08/18/21 09:26 Metoprolol Succinate (Er) 25 Mg Tab.Er.24h PO 25 mg BID [facility] Administration Naloxone HCl 0.2 mg 08/17/21 10:50 Naloxone 0.4 Mg/Ml 1 Ml Vial IV Q2M PRN Opioid Reversal Pravastatin Sodium 10 mg 08/18/21 09:00 08/18/21 09:26 Pravastatin Sodium 20 Mg Tab PO 10 mg DAILY [facility] Administration Intake and Output 08/17/21 08/18/2122 22:59 06:59 14:59 Intake Total 240 111.083 118 Balance 240 111.083 118 Intake: Intake, IV Titration 111.083 Amount Diltiazem 125 mg In 111.083 Sodium Chloride 0.9% 100 ml @ 7.5 MG/HR 7.5 mls/hr IV .[id number] [facility] Rx#: [id number] Oral 240 118 Other: Voiding Method Toilet Toilet # Voids 2 3 08/17/21 10:01 08/17/21 10:01
[2021-08-18] MEDS: FUROSEMIDE 10 MG/ML 4 ML VIAL IV SCH (10:45)
[2021-08-18] MEDS ORDERED: diphenhydrAMINE 50 MG/ML 1 ML VIAL IVP PRN (11:00)
[2021-08-18] MEDS: metFORMIN 500 MG TAB PO SCH (17:02)
[2021-08-18] MEDS: AMIODARONE 450 MG in DEXTROSE 5% IN WATER 250 ML IV SCH ×2 (18:27)
[2021-08-18] MEDS: LORATADINE 10 MG TAB PO SCH (20:54)
[2021-08-18] MEDS: LOSARTAN 25 MG TAB PO SCH (20:54)
--- NOTE | 2021-08-19 01:53 | P.PN ---
Subjective Progress Note Date: 08/18/21 Patient is a 51-year-old female with a long history of atrial fibrillation paroxysmal, hypertension, diabetes type 2 ghj-rnowuwr-hgaleriis, hyperlipidemia, anxiety/depression and morbid obesity presents to ER with complaints of palpitations and shortness of breath. Patient underwent ablation recently on 08/08/2021. There was a question of nerve injury to the right diaphragm and was recommended incentive spirometry. Patient has been having palpitations and increased heart rate started around 830 this morning. Denies any chest pain. No nausea vomiting abdominal pain or diarrhea. No leg swelling. No fever no chills. Chest x-ray showed no acute pulmonary process. EKG showed atrial fibrillation with rapid ventricle response. Laboratory data showed WBC 9.8 hemoglobin 14.4 and platelets 144 INR 0.9 Sodium 133 potassium 3.5 chloride 99 bicarb is 20 BUN 14 and creatinine 0.68 and blood sugar 292 Calcium 9.1 magnesium 1.7, troponin x3 negative and TSH 1.57 08/18/2021 Patient is currently sitting in the recliner. Awake alert and oriented x3. No complaint of chest pain. Still having exertional short of breath but did improve compared to yesterday. Heart rate is controlled. Patient was started on amiodarone drip for cardioversion. No complaints of nausea vomiting abdominal pain or diarrhea. Patient still having leg swelling and was started on Lasix 40 mg IV daily. Laboratory showed 6 A1c 6.7 and blood sugar 147. Troponin x3 negative. Cardiology is following. Current medications reviewed. Objective - Vital Signs Vital signs: Vital Signs Temp 98.2 F 08/18/21 16:00 Pulse 94 08/18/21 16:00 Resp 17 08/18/21 16:00 BP 123/60 08/18/21 16:00 Pulse Ox 97 08/18/21 16:00 FiO2 Intake & Output 08/18/21 08/18/21 08/19/21 06:59 18:59 06:59 Intake Total 111.083 783.0 Balance 111.083 783.0 Intake: Intake, IV Titration 111.083 125.0 Amount Diltiazem 125 mg In 111.083 125.0 Sodium Chloride 0.9% 100 ml @ 7.5 MG/HR 7.5 mls/hr IV .[id number] [facility] Rx#: [id number] Oral 658 Other: Voiding Method Toilet Toilet # Voids 3 2 - Exam PHYSICAL EXAMINATION: Patient is lying in the bed comfortably, no acute distress, awake alert and oriented.. HEENT: Normocephalic. Neck is supple. Pupils reactive. Nostrils clear. Oral cavity is moist. Neck reveals no JVD, carotid bruits, or thyromegaly. CHEST EXAMINATION: Trachea is central. Symmetrical expansion. Right basilar diminished sounds. Lung hernandez clear to auscultation and percussion. CARDIAC: Normal S1, S2 with no gallops. No murmurs Irregularly irregular rhythm. ABDOMEN: Soft. Bowel sounds normal. No organomegaly. No abdominal bruits. Extremities: reveal no edema. No clubbing or cyanosis Neurologically awake, alert, oriented x3 with well-coordinated movements. No focal deficits noted Skin: No rash or skin lesions. Psychiatric: Cooperative. Nonsuicidal Musculoskeletal: No joint swelling or deformity. Normal range of motion. - Labs CBC & Chem 7: 08/17/21 10:01 08/17/21 10:01 Labs: Abnormal Lab Results - Last 24 Hours (Table) 08/18/21 Range/Units 07:14 Hemoglobin A1c 6.7 H (0.0-6.0) % Assessment and Plan Assessment: Atrial fibrillation with rapid ventricular rate Paroxysmal atrial fibrillation on anticoagulation and recent cardiac ablation about a week ago. 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 Hypertension Diabetes type 2 [id number] Anxiety/depression Morbid obesity DVT prophylaxis patient is already on full anticoagulation Plan: Patient was started on Cardizem drip. Heart rate is controlled. Patient remains in atrial fibrillation and was started on amiodarone drip with a goal of conversation. Continue with metoprolol and hold Maxide and losartan. started on IV lasix. Continue with Eliquis. Cardiology is following. Continue monitoring and follow-up closely. Continue with incentive spirometry. Time with Patient: Greater than 30
[2021-08-19] MEDS: INSULIN ASPART (NovoLOG) 100 UNIT/ML VIAL SQ SCH ×2 (06:51→11:53)
[2021-08-19] MEDS: metFORMIN 500 MG TAB PO SCH (07:02)
[2021-08-19] MEDS: AMIODARONE 450 MG in DEXTROSE 5% IN WATER 250 ML IV SCH ×2 (07:02)
[2021-08-19 08:32] LABS: Basophils # (A) 0.1 k/uL (0-0.2); Basophils % (A) 1 %; Eosinophils # (A) 0.2 k/uL (0-0.7); Eosinophils % (A) 2 %; HCT 38.6 % (34.0-46.0); HGB 12.8 gm/dL (11.4-16.0); Lymphocytes # (A) 1.5 k/uL (1.0-4.8); Lymphocytes % (A) 17 %; MCH 28.7 pg (25.0-35.0); MCHC 33.1 g/dL (31.0-37.0); MCV 86.7 fL (80.0-100.0); Mean Platelet Volume 12.3; Monocytes # (A) 0.5 k/uL (0-1.0); Monocytes % (A) 6 %; Neutrophils # (A) 6.4 k/uL (1.3-7.7); Neutrophils % (A) 72 %; Platelet Count 148 k/uL (150-450); RBC 4.46 m/uL (3.80-5.40); RDW 13.4 % (11.5-15.5); WBC 8.8 k/uL (3.8-10.6)
[2021-08-19 08:36] LABS: African American GFR (CKD) >90 (>60 ml/min/1.73 sqM); Anion Gap 10 mmol/L; Blood Urea Nitrogen 13 mg/dL (7-17); Calcium 8.4 mg/dL (8.4-10.2); Carbon Dioxide 28 mmol/L (22-30); Chloride 97 mmol/L (98-107); Glucose 138 mg/dL (74-99); Non-African American GFR(CKD) >90 (>60 ml/min/1.73 sqM); Potassium 3.4 mmol/L (3.5-5.1); Sodium 135 mmol/L (137-145)
[2021-08-19] MEDS: FERROUS SULFATE 325 MG TAB PO SCH (08:36)
[2021-08-19] MEDS: FUROSEMIDE 10 MG/ML 4 ML VIAL IV SCH (08:36)
[2021-08-19] MEDS: MAGNESIUM OXIDE 400 MG TAB PO SCH (08:36)
[2021-08-19] MEDS: METOPROLOL SUCCINATE (ER) 25 MG TAB.ER.24H PO SCH (08:36)
[2021-08-19] MEDS: APIXABAN 5 MG TAB PO SCH (08:36)
[2021-08-19] MEDS: PRAVASTATIN SODIUM 20 MG TAB PO SCH (08:36)
--- NOTE | 2021-08-19 08:39 | P.PN ---
Subjective HISTORY OF PRESENTING ILLNESS Patient is pleasant 51-year-old female with history of paroxysmal atrial fibrillation, hypertension, diabetes, obesity, adverse reaction to flecainide reportedly ventricular tachycardia and status post pulmonary vein ablation for A. fib 08/08 who presents with recurrent episode of A. fib with heart rates in the 140s to 150s and fairly symptomatic. She admits to increased shortness breath, palpitations. Since yesterday she has noted mild increase in lower extremity swelling. She did undergo pulmonary vein ablation 08/08/2021 with some phrenic nerve paresis noted during right superior pulmonary vein isolation and therefore recommendations for possible repeat ablation down the road. She denies any new medications. EKG showed atrial fibrillation with heart rate [address] depressions. Troponins are to be normal 3. Patient was placed on Cardizem drip currently at 10 with heart rates better controlled however still very symptomatic with minimal exertion. 08/19 Patient seen and examined. Patient had atypical reaction of feeling somewhat short of breath with amiodarone bolus however was able to tolerate amiodarone drip. May be some component of anxiety. She converted to normal sinus rhythm last night and has been feeling okay however has upset stomach. She admits to trace lower extremity edema likely exacerbated by having feet over her recliner. PHYSICAL EXAMINATION Vital signs reviewed. CONSTITUTIONAL: No apparent distress. HEENT: Head is normocephalic. Pupils are equal, round. Sclerae anicteric. Mucous membranes of the mouth are moist. No JVD. No carotid bruit. CHEST EXAMINATION: Lungs are clear to auscultation. No chest wall tenderness is noted on palpation or with deep breathing. HEART EXAMINATION: Irregular rate and rhythm. S1, S2 heard. No murmurs, gallops or rub. ABDOMEN: Soft, nontender. Positive bowel sounds. EXTREMITIES: 2+ peripheral pulses, Trace lower extremity edema and no calf tenderness. NEUROLOGIC EXAMINATION: Patient is awake, alert and oriented x3. ASSESSMENT 1. Paroxysmal atrial fibrillation currently sinus rhythm 2. Acute on chronic diastolic heart failure 3. 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 Hypertension 5. Diabetes mellitus type 2 6. Obesity 7. History of ventricular tachycardia with flecainide PLAN Patient has converted to normal sinus rhythm. She did have atypical reaction to amiodarone and may be some component of anxiety. Stop amiodarone drip and give lower dose amiodarone 100 mg daily and see how she tolerates. Patient will likely benefit from repeat ablation once phrenic nerve recovers. Further recommendations follow. Okay for discharge home this afternoon on home medications with the addition of amiodarone 100 mg daily. Objective - Vital Signs Vital signs: Vital Signs Temp 97.9 F 08/19/21 04:30 Pulse 62 08/19/21 04:30 Resp 18 08/19/21 04:30 BP 122/71 08/19/21 04:30 Pulse Ox 98 08/19/21 04:30 FiO2 Intake & Output 08/18/21 08/19/21 08/19/21 18:59 06:59 18:59 Intake Total 783.0 569.726 Balance 783.0 569.726 Intake: Intake, IV Titration 125.0 209.726 Amount Amiodarone 450 mg In 209.726 Dextrose 5% in Water 250 ml @ 0.5 MG/MIN 16.667 mls/hr IV .Q15H [facility] Rx#: [id number] Diltiazem 125 mg In 125.0 Sodium Chloride 0.9% 100 ml @ 7.5 MG/HR 7.5 mls/hr IV .[id number] [facility] Rx#: [id number] Oral 658 360 Other: Voiding Method Toilet Toilet # Voids 2 1 1 - Labs CBC & Chem 7: 08/17/21 10:01 08/17/21 10:01 Labs: Abnormal Lab Results - Last 24 Hours (Table) 08/18/21 Range/Units 07:14 Hemoglobin A1c 6.7 H (0.0-6.0) %
[2021-08-19] MEDS ORDERED: AMIODARONE 100 MG TAB PO SCH (09:00)
[2021-08-19] MEDS ORDERED: medroxyPROGESTERone 10 MG TABLET PO SCH (09:00)
[2021-08-19 09:56] LABS: Large Platelets Present
[2021-08-19 09:58] VITALS: TEMP 97.4
[2021-08-19 12:22] VITALS: BP 123/58; PULSE 64; RESP 17
[2021-08-19] MEDS ORDERED: POTASSIUM CHLORIDE ER 20 MEQ TAB.ER PO STA (13:30)
--- NOTE | 2021-08-21 09:11 | P.DS ---
Providers Date of admission: 08/17/21 10:51 Expected date of discharge: 08/19/21 Attending physician: Corby Bynum MD Consults: 08/17/21 10:50 Consult Physician Urgent Consulting Provider: Stephen Mcdaniel Consult Reason/Comments: a fib w rvr Do you want consulting provider notified?: Yes Primary care physician: Joselyn Dougherty Hospital Course: Final diagnosis Atrial fibrillation with rapid ventricular rate Paroxysmal atrial fibrillation on anticoagulation and recent cardiac ablation about a week ago. 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 Hypertension Diabetes type 2 ild-rwptylp-bruydywoo Anxiety/depression Morbid obesity DVT prophylaxis patient is already on full anticoagulation Discharge disposition Patient is being discharged in a stable condition with guarded prognosis to home. Patient will follow-up with Dr. Dougherty in the outpatient setting upon discharge. Patient is to follow-up with cardiology as scheduled. Total time taken is greater than 35 minutes. Hospital course This is a 51-year-old female who was recently admitted with palpitations and shortness of breath with history of atrial fibrillation which is paroxysmal and was being closely monitored. Patient underwent ablation on 08/08/2021 and came to the ER for further evaluation for continued shortness of breath and palpitations that it started the morning of. Patient will follow with Dr. Mcdaniel as scheduled in one week. EKG on admission showed atrial fibrillation with rapid ventricular response and cardiology evaluated the patient. Patient was started on amiodarone drip and converted and is continued on amiodarone 100 mg daily per cardiology and will follow-up in one week. Patient reports feeling much better and would like to go home today. Patient will continue on triamterene diuretic per cardiology and encouraged and instructed to elevate lower extremities while at rest. Currently no reports of chest pain, shortness of breath, or palpitations. Patient is afebrile. No reports of nausea or vomiting and patient is tolerating diet. Patient will be discharged home today. On exam vital signs are stable. Cardio S1, S2 are muffled. Respiratory system shows diminished breath sounds at the bases with no wheezing or rhonchi noted. Abdomen is soft and obese, and nontender. Nervous system shows no focal deficits. Please refer to medication reconciliation sheet for a list of medications. The impression and plan of care has been dictated by Melissa Corley, Nurse Practitioner as directed. Dr. Camilo MD I have performed a history and examination and MDM of this patient, discussed the same with the dictator, and agree with the dictator's assessment and plan as written ,documented as a scribe. Based on total visit time, I have performed more than 50% of the visit. Patient Condition at Discharge: Stable Plan - Discharge Summary Discharge Rx Participant: Yes New Discharge Prescriptions: New Amiodarone [Cordarone] 100 mg PO DAILY #30 tab Continue Triamterene/Hydrochlorothiazid [Triamterene-Hctz 37.5-25 mg Tb] 1 tab PO DAILY Ferrous Sulfate [Feosol] 325 mg PO DAILY metFORMIN HCL [Glucophage] 500 mg PO BID Apixaban [Eliquis] 5 mg PO BID Losartan Potassium 75 mg PO HS clonazePAM [KlonoPIN] 0.5 - 1 mg PO HS PRN PRN Reason: insomnia/anxiety Magnesium Oxide [Mag-Ox] 400 mg PO DAILY Cetirizine HCl [Zyrtec] 10 mg PO HS Metoprolol Succinate (ER) [Toprol XL] 25 mg PO BID Ergocalciferol [Vitamin D2 (1250 Mcg = 62982 Iu)] 1,250 mcg PO WE Medroxyprogesterone Acetate [Provera] 10 mg PO DAILY Pravastatin Sodium [Pravachol] 10 mg PO DAILY Metoprolol Tartrate [Lopressor] 25 mg PO DAILY PRN PRN Reason: A-Fib Discharge Medication List Triamterene/Hydrochlorothiazid [Triamterene-Hctz 37.5-25 mg Tb] 1 tab PO DAILY 05/03/15 [History] Ferrous Sulfate [Feosol] 325 mg PO DAILY 08/19/18 [History] Apixaban [Eliquis] 5 mg PO BID 07/15/19 [History] Losartan Potassium 75 mg PO HS 07/15/19 [History] metFORMIN HCL [Glucophage] 500 mg PO BID 07/15/19 [History] Ergocalciferol [Vitamin D2 (1250 Mcg = 25521 Iu)] 1,250 mcg PO WE 04/25/21 [History] Magnesium Oxide [Mag-Ox] 400 mg PO DAILY 04/25/21 [History] Medroxyprogesterone Acetate [Provera] 10 mg PO DAILY 04/25/21 [History] Pravastatin Sodium [Pravachol] 10 mg PO DAILY 04/25/21 [History] clonazePAM [KlonoPIN] 0.5 - 1 mg PO HS PRN 04/25/21 [History] Cetirizine HCl [Zyrtec] 10 mg PO HS 08/07/21 [History] Metoprolol Tartrate [Lopressor] 25 mg PO DAILY PRN 08/07/21 [History] Metoprolol Succinate (ER) [Toprol XL] 25 mg PO BID 08/17/21 [History] Amiodarone [Cordarone] 100 mg PO DAILY #30 tab 08/19/21 [Rx] Follow up Appointment(s)/Referral(s): Stephen Mcdaniel MD [STAFF PHYSICIAN] - 1 Week (please call and schedule post hospi sulma follow up. Inform them you need a post hospital follow up for afib RVR post ablation.) Joselyn Dougherty III, MD [Primary Care Provider] - 1-2 days (please call and schedule post hospital follow up. Inform them you need a post hospital follow up for afib RVR post ablation.) Ambulatory/Diagnostic Orders: Complete Blood Count w/diff [LAB.AMB] Time Frame: 3 Days, Location: None Selected Patient Instructions/Handouts: A-fib (Atrial Fibrillation) (DC) Activity/Diet/Wound Care/Special Instructions: Activity Limited until follow-up Follow-up with primary care provider on discharge Follow-up with cardio in one week Continue taking medications as prescribed Recommend repeat labs of CBC and BMP in 2-3 days Continue heart healthy diet Continue to elevate lower extremities while at rest Continue fluid restrictions of 1500 mL per day Discharge Disposition: HOME SELF-CARE
== END 2021-08-19 14:31 | disposition home or self-care (01) | DRG 308 ==
LOC: EC 09:29 → 3SCARD 10:51
PROVIDERS: ADMIT Internal Medicine; ATTEND Internal Medicine
DX: I48.0 Paroxysmal atrial fibrillation (principal); I50.33 Acute on chronic diastolic (congestive) heart failure; E11.9 Type 2 diabetes mellitus without complications; E66.01 Morbid (severe) obesity due to excess calories; I11.0 Hypertensive heart disease with heart failure; F32.A Depression, unspecified; E78.5 Hyperlipidemia, unspecified; F41.9 Anxiety disorder, unspecified; J98.6 Disorders of diaphragm; G56.81 Other specified mononeuropathies of right upper limb; R19.8 Other specified symptoms and signs involving the digestive system and abdomen; Z79.01 Long term (current) use of anticoagulants; Z79.84 Long term (current) use of oral hypoglycemic drugs; Z79.899 Other long term (current) drug therapy; Z86.79 Personal history of other diseases of the circulatory system; Z98.890 Other specified postprocedural states; Z86.2 Personal history of diseases of the blood and blood-forming organs and certain disorders involving the immune mechanism; Z88.8 Allergy status to other drugs, medicaments and biological substances; Z91.030 Bee allergy status; Z63.4 Disappearance and death of family member; Z83.42 Family history of familial hypercholesterolemia; Z82.61 Family history of arthritis; Z83.49 Family history of other endocrine, nutritional and metabolic diseases
CPT/HCPCS: 36415; 71045; 80048; 80053; 83036; 83735; 84443; 84484; 85025; 85610; 85730; 93005; 96365; 96366; 99291

== ENCOUNTER → 2021-10-23 | Outpatient (CLI) | payer BC ==
--- NOTE | 2021-10-23 14:28 | FL ---
EXAMINATION TYPE: FL sniff test without CXR DATE OF EXAM: 10/23/2021 Comparison: Radiograph 08/17/2021 Clinical History: 51-year-old female J98.6 Disorders of diaphragm patient with ablation in July for at rial fibrillation, trouble breathing since then. Technique: Real time fluoroscopy assessment of the diaphragm during quiet breathing, deep inspiration /expiration and sniffing maneuver. Total fluoroscopy time: 30 seconds. Total images: 9 Findings: There is asymmetric elevation of the right hemidiaphragm. On quiet breathing and deep inspiration/expiration, there is sluggish motion of the right hemidiaphra gm as well as diminished excursion. However, on sniff maneuver, there is cass paradoxical movement of the right hemidiaphragm. Impression: Findings in keeping with cass right hemidiaphragmatic paralysis.
== END | disposition home or self-care (01) ==
LOC: RADUSWWP 09:24
PROVIDERS: ATTEND Internal Medicine Critical Care Medicine
DX: J98.6 Disorders of diaphragm (principal)
CPT/HCPCS: 76000

== ENCOUNTER 2022-03-10 03:03 | Inpatient (IN) | payer BC ==
[2022-03-10] MEDS ORDERED: DILTIAZEM DRIP BOLUS FROM BAG 1 MG SOLN IV ONE (03:24)
[2022-03-10] MEDS ORDERED: DILTIAZEM 125 MG in SODIUM CHLORIDE 0.9% 100 ML IV SCH (03:30)
[2022-03-10] MEDS ORDERED: METOPROLOL TARTRATE 5 MG/5 ML VIAL IVP STA ×2 (03:31→03:55)
[2022-03-10] MEDS ORDERED: PROCHLORPERAZINE INJ 10 MG/2 ML VIAL IVP STA (03:43)
[2022-03-10] MEDS ORDERED: SODIUM CHLORIDE 0.9% 1,000 ML IV STA (03:43)
--- NOTE | 2022-03-10 03:48 | ED ---
Arrhythmia/Palpitations HPI - General Chief Complaint: Arrhythmia/Palpitations Stated Complaint: AFib Time Seen by Provider: 03/10/22 03:42 Source: patient, RN notes reviewed, old records reviewed Mode of arrival: ambulatory Limitations: no limitations - History of Present Illness Initial Comments: This is a 51-year-old female to the emergency department for evaluation patient resents today for evaluation of vomiting lightheadedness dizziness weakness. Not feeling well no chest pain. Patient states this illness she believes maybe put her in atrial fibrillation. No diarrhea no abdominal pain. MD Complaint: rapid heart beat, "heart racing", irregular heart beat, atrial fibrillation -: hour(s) Context: occurred during rest, awoke with symptoms Arrhythmia History: atrial fibrillation Associated Symptoms: chest pain, shortness of breath Treatments Prior to Arrival: other (0) - Related Data Home Medications Medication Instructions Recorded Confirmed Apixaban [Eliquis] 5 mg PO BID 07/15/19 03/10/22 metFORMIN HCL [Glucophage] 500 mg PO BID 07/15/19 03/10/22 Medroxyprogesterone Acetate 10 mg PO DAILY 04/25/21 03/10/22 [Provera] Pravastatin Sodium [Pravachol] 10 mg PO DAILY 04/25/21 03/10/22 clonazePAM [KlonoPIN] 0.5 - 1 mg PO HS PRN 04/25/21 03/10/22 Cetirizine HCl [Zyrtec] 10 mg PO HS 08/07/21 03/10/22 Previous Rx's Medication Instructions Recorded Metoprolol Succinate (ER) [Toprol 50 mg PO BID 30 Days #60 tab 03/11/22 XL] Furosemide [Lasix] 20 mg PO DAILY #30 tab 03/12/22 Allergies Allergy/AdvReac Type Severity Reaction Status Date / Time venom-honey bee Allergy Swelling Verified 03/10/22 03:06 [bee venom (honey bee)] at site of sting flecainide AdvReac "v-tach" Verified 03/10/22 03:06 lisinopril AdvReac Cough Verified 03/10/22 03:06 venlafaxine [From Effexor] AdvReac Vertigo Verified 03/10/22 03:06 Review of Systems ROS Statement: Those systems with pertinent positive or pertinent negative responses have been documented in the HPI. ROS Other: All systems not noted in ROS Statement are negative. Past Medical History Past Medical History: Atrial Fibrillation, Hypertension Additional Past Medical History / Comment(s): anemia History of Any Multi-Drug Resistant Organisms: None Reported Past Surgical History: Section Additional Past Surgical History / Comment(s): D &C 09/2018 Past Anesthesia/Blood Transfusion Reactions: No Reported Reaction Past Psychological History: Anxiety, Depression Smoking Status: Never smoker Past Alcohol Use History: None Reported, Rare Past Drug Use History: None Reported - Past Family History Father Family Medical History: Hyperlipidemia, Osteoarthritis (OA) Mother Family Medical History: Thyroid Disorder Additional Family Medical History / Comment(s): GRAVES DISEASE. PT'S MOM IN HER SLEEP AT AGE OF 63 AFTER SURGERY. General Exam Limitations: no limitations General appearance: alert, in no apparent distress, anxious Head exam: Present: atraumatic, normocephalic, normal inspection Eye exam: Present: normal appearance, PERRL, EOMI. Absent: scleral icterus, conjunctival injection, periorbital swelling ENT exam: Present: normal exam, mucous membranes moist Neck exam: Present: normal inspection. Absent: tenderness, meningismus, lymphadenopathy Respiratory exam: Present: normal lung sounds bilaterally. Absent: respiratory distress, wheezes, rales, rhonchi, stridor Cardiovascular Exam: Present: tachycardia, irregular rhythm, normal heart sounds. Absent: systolic murmur, diastolic murmur, rubs, gallop, clicks GI/Abdominal exam: Present: soft, normal bowel sounds. Absent: distended, tenderness, guarding, rebound, rigid Extremities exam: Present: normal inspection, full ROM, normal capillary refill. Absent: tenderness, pedal edema, joint swelling, calf tenderness Back exam: Present: normal inspection Neurological exam: Present: alert, oriented X3, CN II-XII intact Psychiatric exam: Present: normal affect, normal mood Skin exam: Present: warm, dry, intact, normal color. Absent: rash Course Vital Signs 03/10/22 03/10/22 03/10/22 03:04 03:30 03:31 Temperature 98.4 F 98.4 F Pulse Rate 81 141 H 155 H Respiratory 18 8 L 18 Rate Blood Pressure 137/91 127/74 127/83 O2 Sat by Pulse 96 97 Oximetry 03/10/22 03/10/22 03/10/22 03:50 04:50 05:50 Temperature Pulse Rate 128 H 142 H 149 H Respiratory 16 17 18 Rate Blood Pressure 103/75 103/82 108/80 O2 Sat by Pulse 97 97 95 Oximetry 03/10/22 03/10/22 03/10/22 06:24 07:30 08:15 Temperature Pulse Rate 144 H 142 H 140 H Respiratory 22 22 Rate Blood Pressure 101/89 108/81 O2 Sat by Pulse 96 97 96 Oximetry - Reevaluation(s) Reevaluation #1: Medical record is reviewed Patient has no real improvement in symptoms here in the ER Patient informed results and questions answered EKG Findings - EKG Comments: EKG Findings:: EKG is A. fib with RVR 157 QRS 101 QTC 365 Medical Decision Making - Medical Decision Making 51 female found to be nature fibrillation with RVR with difficult to control heart rate. A she'll be admitted for rate control and cardiology to see - Lab Data Result diagrams: 03/10/22 03:19 03/10/22 03:19 Lab Results 03/10/22 03/10/22 03/10/22 Range/Units 03:19 03:19 03:19 WBC 12.2 H (3.8-10.6) k/uL RBC 4.68 (3.80-5.40) m/uL Hgb 13.5 (11.4-16.0) gm/dL Hct 38.2 (34.0-46.0) % MCV 81.7 (80.0-100.0) fL MCH 28.9 (25.0-35.0) pg MCHC 35.3 (31.0-37.0) g/dL RDW 13.1 (11.5-15.5) % Plt Count 131 L (150-450) k/uL MPV 12.5 Neutrophils % 86 % Lymphocytes % 6 % Monocytes % 5 % Eosinophils % 1 % Basophils % 0 % Neutrophils # 10.5 H (1.3-7.7) k/uL Lymphocytes # 0.8 L (1.0-4.8) k/uL Monocytes # 0.6 (0-1.0) k/uL Eosinophils # 0.1 (0-0.7) k/uL Basophils # 0.0 (0-0.2) k/uL PT 10.0 (9.0-12.0) sec INR 0.9 (<1.2) APTT 24.6 (22.0-30.0) sec Sodium 130 L (137-145) mmol/L Potassium 3.7 (3.5-5.1) mmol/L Chloride 99 (98-107) mmol/L Carbon Dioxide 22 (22-30) mmol/L Anion Gap 9 mmol/L BUN 13 (7-17) mg/dL Creatinine 0.54 (0.52-1.04) mg/dL Est GFR (CKD-EPI)AfAm >90 (>60 ml/min/1.73 sqM) Est GFR (CKD-EPI)NonAf >90 (>60 ml/min/1.73 sqM) Glucose 192 H (74-99) mg/dL Calcium 8.4 (8.4-10.2) mg/dL Magnesium 1.6 (1.6-2.3) mg/dL Total Bilirubin 1.2 (0.2-1.3) mg/dL AST 25 (14-36) U/L ALT 29 (4-34) U/L Alkaline Phosphatase 44 (38-126) U/L Troponin I (0.000-0.034) ng/mL Total Protein 6.9 (6.3-8.2) g/dL Albumin 3.9 (3.5-5.0) g/dL 03/10/22 Range/Units 03:19 WBC (3.8-10.6) k/uL RBC (3.80-5.40) m/uL Hgb (11.4-16.0) gm/dL Hct (34.0-46.0) % MCV (80.0-100.0) fL MCH (25.0-35.0) pg MCHC (31.0-37.0) g/dL RDW (11.5-15.5) % Plt Count (150-450) k/uL MPV Neutrophils % % Lymphocytes % % Monocytes % % Eosinophils % % Basophils % % Neutrophils # (1.3-7.7) k/uL Lymphocytes # (1.0-4.8) k/uL Monocytes # (0-1.0) k/uL Eosinophils # (0-0.7) k/uL Basophils # (0-0.2) k/uL PT (9.0-12.0) sec INR (<1.2) APTT (22.0-30.0) sec Sodium (137-145) mmol/L Potassium (3.5-5.1) mmol/L Chloride (98-107) mmol/L Carbon Dioxide (22-30) mmol/L Anion Gap mmol/L BUN (7-17) mg/dL Creatinine (0.52-1.04) mg/dL Est GFR (CKD-EPI)AfAm (>60 ml/min/1.73 sqM) Est GFR (CKD-EPI)NonAf (>60 ml/min/1.73 sqM) Glucose (74-99) mg/dL Calcium (8.4-10.2) mg/dL Magnesium (1.6-2.3) mg/dL Total Bilirubin (0.2-1.3) mg/dL AST (14-36) U/L ALT (4-34) U/L Alkaline Phosphatase (38-126) U/L Troponin I <0.012 (0.000-0.034) ng/mL Total Protein (6.3-8.2) g/dL Albumin (3.5-5.0) g/dL Critical Care Time Critical Care Time: Yes Total Critical Care Time: 31 Disposition Clinical Impression: Atrial fibrillation, Atrial fibrillation with RVR, Dysrhythmia Disposition: ADMITTED IP TO THIS HOSP Condition: Good Is patient prescribed a controlled substance at d/c from ED?: No Time of Disposition: 05:10
[2022-03-10 03:53] LABS: Basophils % (A) 0 %; Eosinophils # (A) 0.1 k/uL (0-0.7); Eosinophils % (A) 1 %; HCT 38.2 % (34.0-46.0); HGB 13.5 gm/dL (11.4-16.0); Lymphocytes # (A) 0.8 k/uL (1.0-4.8); Lymphocytes % (A) 6 %; MCH 28.9 pg (25.0-35.0); MCHC 35.3 g/dL (31.0-37.0); MCV 81.7 fL (80.0-100.0); Mean Platelet Volume 12.5; Monocytes # (A) 0.6 k/uL (0-1.0); Monocytes % (A) 5 %; Neutrophils # (A) 10.5 k/uL (1.3-7.7); Neutrophils % (A) 86 %; Platelet Count 131 k/uL (150-450); RBC 4.68 m/uL (3.80-5.40); RDW 13.1 % (11.5-15.5); WBC 12.2 k/uL (3.8-10.6)
[2022-03-10] MEDS ORDERED: MAGNESIUM SULFATE-D5W PMX 1 GM in DEXTROSE/WATER 1 100ML.BAG IVPB ONE (03:55)
[2022-03-10 04:05] LABS: INR 0.9 (<1.2); Partial Thromboplastin Time 24.6 sec (22.0-30.0)
[2022-03-10 04:11] LABS: ALT 29 U/L (4-34); AST 25 U/L (14-36); African American GFR (CKD) >90 (>60 ml/min/1.73 sqM); Albumin 3.9 g/dL (3.5-5.0); Alkaline Phosphatase 44 U/L (38-126); Anion Gap 9 mmol/L; Blood Urea Nitrogen 13 mg/dL (7-17); Calcium 8.4 mg/dL (8.4-10.2); Carbon Dioxide 22 mmol/L (22-30); Chloride 99 mmol/L (98-107); Glucose 192 mg/dL (74-99); Magnesium 1.6 mg/dL (1.6-2.3); Non-African American GFR(CKD) >90 (>60 ml/min/1.73 sqM); Potassium 3.7 mmol/L (3.5-5.1); Sodium 130 mmol/L (137-145); Total Bilirubin 1.2 mg/dL (0.2-1.3); Total Protein 6.9 g/dL (6.3-8.2)
[2022-03-10] MEDS: SODIUM CHLORIDE 0.9% 1,000 ML IV SCH ×3 (04:28→12:53)
[2022-03-10] MEDS ORDERED: NALOXONE 0.4 MG/ML 1 ML VIAL IV PRN (05:04)
[2022-03-10] MEDS ORDERED: ONDANSETRON 4 MG/2 ML VIAL IVP PRN (05:04)
[2022-03-10] MEDS ORDERED: MORPHINE SULFATE 4 MG/ML SYRINGE IV PRN (05:04)
[2022-03-10] MEDS ORDERED: SODIUM CHLORIDE 0.9% 1,000 ML IV SCH (05:15)
[2022-03-10] MEDS ORDERED: DEXTROSE 5% IN WATER 100 ML with AMIODARONE 150 MG IV ONE ×4 (06:57)
[2022-03-10] MEDS ORDERED: AMIODARONE 360 MG in DEXTROSE 5% IN WATER 200 ML IV ONE ×2 (06:58)
[2022-03-10] MEDS ORDERED: clonazePAM 0.5 MG TAB PO PRN (10:31)
[2022-03-10] MEDS: medroxyPROGESTERone 10 MG TABLET PO SCH (11:15)
[2022-03-10] MEDS: METOPROLOL SUCCINATE (ER) 50 MG TAB.ER.24H PO SCH ×2 (11:15→20:22)
--- NOTE | 2022-03-10 11:43 | P.HPIM ---
History of Present Illness Patient was a 51-year-old female came in with complaints of palpitations or irregular heartbeat patient is found to be in atrial fibrillation patient has known history of A. fib on anticoagulation with eliquis and patient had normal ejection fraction the past. Patient was having flulike symptoms going on for 5 days patient also having nausea vomiting which resolved at this time. Patient is bit hyponatremic for that reason patient is also on the hydrochlorothiazide and triamterene for blood pressure. She present to heart rate is 140 is presently in atrial fibrillation patient usually uses Toprol-XL 25 mg twice a day at home. Patient was comparing of cough for which is dry and nasal congestion no chest x-ray was obtained will also obtain COVID-19, RSV and influenza PCR's. Patient to does have leukocytosis without any fever. REVIEW OF SYSTEMS: CONSTITUTIONAL: No fever, no malaise, no fatigue. HEENT: No recent visual problems or hearing problems. Denied any sore throat. CARDIOVASCULAR: No chest pain, orthopnea, PND,no syncope. PULMONARY: no hemoptysis. GASTROINTESTINAL: No diarrhea, no nausea, no vomiting, no abdominal pain. NEUROLOGICAL: No headaches, no weakness, no numbness. HEMATOLOGICAL: Denies any bleeding or petechiae. GENITOURINARY: Denies any burning micturition, frequency, or urgency. MUSCULOSKELETAL/RHEUMATOLOGICAL: Denies any joint pain, swelling, or any muscle pain. ENDOCRINE: Denies any polyuria or polydipsia. The rest of the 14-point review of systems is negative. PHYSICAL EXAMINATION: GENERAL: The patient is alert and oriented x3, not in any acute distress. Obese HEENT: Pupils are round and equally reacting to light. EOMI. No scleral icterus. No conjunctival pallor. Normocephalic, atraumatic. No pharyngeal erythema. No thyromegaly. CARDIOVASCULAR: S1 and S2 present. No murmurs, rubs, or gallops. Tachycardic irregularly irregular rhythm PULMONARY: Chest is clear to auscultation, no wheezing or crackles. ABDOMEN: Soft, nontender, nondistended, normoactive bowel sounds. No palpable organomegaly. MUSCULOSKELETAL: No joint swelling or deformity. EXTREMITIES: No cyanosis, clubbing, or pedal edema. NEUROLOGICAL: Gross neurological examination did not reveal any focal deficits. SKIN: No rashes. Assessment and plan Atrial fibrillation with rapid and regular rate: Probably precipitated by viral infection will increase the dose of Toprol-XL patient is on IV amiodarone which will be weaned of further management of a [facility] cardi[facility]. Patient will be resumed on eliquis. -Leukocytosis secondary to viral upper respiratory illness patient does have sin usitis as well symptomatically treatment for these will obtain influenza, COVID- 19 and RSV testing -Hyponatremia: Secondary to diuretics which will be held now patient blood pressure is low normal at this time -Hypertension -Hyperlipidemia DVT prophylaxis: Patient is on anticoagulation as mentioned above Past Medical History Past Medical History: Atrial Fibrillation, Diabetes Mellitus, Hypertension Additional Past Medical History / Comment(s): anemia History of Any Multi-Drug Resistant Organisms: None Reported Past Surgical History: Ablation, Section Additional Past Surgical History / Comment(s): D &C 09/2018, ablation 07/2021 Past Anesthesia/Blood Transfusion Reactions: No Reported Reaction Past Psychological History: Anxiety, Depression Smoking Status: Never smoker Past Alcohol Use History: None Reported, Rare Past Drug Use History: None Reported - Past Family History Father Family Medical History: Hyperlipidemia, Osteoarthritis (OA) Mother Family Medical History: Thyroid Disorder Additional Family Medical History / Comment(s): GRAVES DISEASE. PT'S MOM IN HER SLEEP AT AGE OF 63 AFTER SURGERY. Medications and Allergies Home Medications Medication Instructions Recorded Confirmed Type Triamterene/Hydrochlorothiazid 1 tab PO DAILY 05/03/15 03/10/22 History [Triamterene-Hctz 37.5-25 mg Tb] Apixaban [Eliquis] 5 mg PO BID 07/15/19 03/10/22 History metFORMIN HCL [Glucophage] 500 mg PO BID 07/15/19 03/10/22 History Medroxyprogesterone Acetate 10 mg PO DAILY 04/25/21 03/10/22 History [Provera] Pravastatin Sodium [Pravachol] 10 mg PO DAILY 04/25/21 03/10/22 History clonazePAM [KlonoPIN] 0.5 - 1 mg PO HS PRN 04/25/21 03/10/22 History Cetirizine HCl [Zyrtec] 10 mg PO HS 08/07/21 03/10/22 History Metoprolol Succinate (ER) [Toprol 25 mg PO BID 08/17/21 03/10/22 History XL] Allergies Allergy/AdvReac Type Severity Reaction Status Date / Time venom-honey bee Allergy Swelling Verified 03/10/22 03:06 [bee venom (honey bee)] at site of sting flecainide AdvReac "v-tach" Verified 03/10/22 03:06 lisinopril AdvReac Cough Verified 03/10/22 03:06 venlafaxine [From Effexor] AdvReac Vertigo Verified 03/10/22 03:06 Physical Exam Vitals: Vital Signs Temp Pulse Pulse Resp BP BP Pulse Ox 03/10/22 09:37 70 18 03/10/22 08:36 97.4 F L 70 18 109/80 96 03/10/22 08:15 140 H 22 108/81 96 03/10/22 07:30 142 H 22 101/89 97 03/10/22 06:24 144 H 96 03/10/22 05:50 149 H 18 108/80 95 03/10/22 04:50 142 H 17 103/82 97 03/10/22 03:50 128 H 16 103/75 97 03/10/22 03:31 98.4 F 155 H 18 127/83 03/10/22 03:30 141 H 8 L 127/74 97 03/10/22 03:04 98.4 F 81 18 137/91 96 Intake and Output 03/09/22 03/10/22 03/10/22 22:59 06:59 14:59 Other: Voiding Method Toilet Weight 158.757 kg 158.757 kg Results CBC & Chem 7: 03/10/22 03:19 03/10/22 03:19 Labs: Abnormal Lab Results - Last 24 Hours (Table) 03/10/22 03/10/22 Range/Units 03:19 03:19 WBC 12.2 H (3.8-10.6) k/uL Plt Count 131 L (150-450) k/uL Neutrophils # 10.5 H (1.3-7.7) k/uL Lymphocytes # 0.8 L (1.0-4.8) k/uL Sodium 130 L (137-145) mmol/L Glucose 192 H (74-99) mg/dL Thrombosis Risk Factor Assmnt - Choose All That Apply Any of the Below Risk Factors Present?: Yes Each Factor Represents 1 point: Age 41-60 years Other Risk Factors: No Thrombosis Risk Factor Assessment Total Risk Factor Score: 1 Thrombosis Risk Factor Assessment Level: Low Risk
[2022-03-10] MEDS ORDERED: MAGNESIUM SULFATE-D5W PMX 1 GM in DEXTROSE/WATER 1 100ML.BAG IVPB SCH (11:45)
[2022-03-10 12:06] LABS: Glucose,Whole Blood 167 mg/dL (70-110)
--- NOTE | 2022-03-10 12:09 | XR ---
EXAMINATION TYPE: XR chest 2V DATE OF EXAM: 03/10/2022 COMPARISON: Chest x-ray August 17, 2021 HISTORY: Pneumonia. TECHNIQUE: Frontal and lateral views of the chest are obtained. FINDINGS: There is no suspicious new focal air space opacity, pleural effusion, or pneumothorax seen . Slightly elevated right hemidiaphragm is less prominent than prior study. The cardiac silhouette si ze is stable and mildly enlarged. Multilevel spurring in thoracic spine is present. IMPRESSION: Mild cardiomegaly without acute pulmonary process.
--- NOTE | 2022-03-10 13:17 | P.CRDCN ---
History of Present Illness History of present illness: HISTORY OF PRESENTING ILLNESS Patient is a pleasant 51-year-old female with history of paroxysmal atrial fibrillation status post pulmonary vein ablation July 2021, hypertension, diabetes mellitus type 2, obesity, adverse reaction to flecainide with reported ventricular tachycardia who presents secondary to an A. fib episode. She states she has not been feeling well last few days with some nausea, upset stomach and decreased appetite. She had a episode of vomiting and then afterwards immediately noticed her heart racing and feeling somewhat more short of breath. She is usually fairly symptomatic from her A. fib. She did have one brief episode after the A. fib ablation and july with A. fib and was placed on amiodarone temporarily. Currently she was placed on amiodarone drip at 1 and heart rate somewhat better controlled in the 70s to 90s however still symptomatic with her heart racing sensation. She denies any chest pain or pressure. Denies any change in medications. She follows with Dr. Mcdaniel. She does have 1+ lower extremity edema which is new for her. She has been receiving IV fluids at 100 mL per hour. REVIEW OF SYSTEMS At the time of my exam: CONSTITUTIONAL: Denies fever or chills. CARDIOVASCULAR: Denies chest pain, shortness of breath, orthopnea, PND, + palpitations. RESPIRATORY: Denies cough. GASTROINTESTINAL: +abdominal pain, no diarrhea, constipation, +nausea +vomiting. MUSCULOSKELETAL: Denies myalgias. NEUROLOGIC: Denies numbness, tingling or weakness. ENDOCRINE: Denies fatigue, weight change, polydipsia or polyurina. GENITOURINARY: Denies burning, hematuria or urgency with micturation. HEMATOLOGIC: Denies history of anemia or bleeding. PHYSICAL EXAMINATION Vital signs reviewed. CONSTITUTIONAL: No apparent distress, obese HEENT: Head is normocephalic. Pupils are equal, round. Sclerae anicteric. Mucous membranes of the mouth are moist. No JVD. No carotid bruit. CHEST EXAMINATION: Lungs are clear to auscultation. No chest wall tenderness is noted on palpation or with deep breathing. HEART EXAMINATION: Irregular rate and rhythm. S1, S2 heard. No murmurs, gallops or rub. ABDOMEN: Soft, nontender. Positive bowel sounds. EXTREMITIES: 2+ peripheral pulses, no lower extremity edema and no calf tenderness. NEUROLOGIC EXAMINATION: Patient is awake, alert and oriented x3. ASSESSMENT 1. Paroxysmal atrial fibrillation symptomatic 2. Chronic diastolic heart failure 3. 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 Hypertension 5. Diabetes mellitus type 2 6. Obesity 7. History of ventricular tachycardia with Flecainide 8. Recent nausea, vomiting, decreased appetite PLAN Continue with amiodarone and likely would not use amiodarone long-term however patient is very symptomatic from the A. fib. Possible NATASHA/cardioversion if remains in A. fib tomorrow. Hold IV fluids that she does have significant lower extremity edema and does have chronic diastolic heart failure. Further recommendations to follow. Past Medical History Past Medical History: Atrial Fibrillation, Diabetes Mellitus, Hypertension Additional Past Medical History / Comment(s): anemia History of Any Multi-Drug Resistant Organisms: None Reported Past Surgical History: Ablation, Section Additional Past Surgical History / Comment(s): D &C 09/2018, ablation 07/2021 Past Anesthesia/Blood Transfusion Reactions: No Reported Reaction Past Psychological History: Anxiety, Depression Smoking Status: Never smoker Past Alcohol Use History: None Reported, Rare Past Drug Use History: None Reported - Past Family History Father Family Medical History: Hyperlipidemia, Osteoarthritis (OA) Mother Family Medical History: Thyroid Disorder Additional Family Medical History / Comment(s): GRAVES DISEASE. PT'S MOM IN HER SLEEP AT AGE OF 63 AFTER SURGERY. Medications and Allergies Home Medications Medication Instructions Recorded Confirmed Type Triamterene/Hydrochlorothiazid 1 tab PO DAILY 05/03/15 03/10/22 History [Triamterene-Hctz 37.5-25 mg Tb] Apixaban [Eliquis] 5 mg PO BID 07/15/19 03/10/22 History metFORMIN HCL [Glucophage] 500 mg PO BID 07/15/19 03/10/22 History Medroxyprogesterone Acetate 10 mg PO DAILY 04/25/21 03/10/22 History [Provera] Pravastatin Sodium [Pravachol] 10 mg PO DAILY 04/25/21 03/10/22 History clonazePAM [KlonoPIN] 0.5 - 1 mg PO HS PRN 04/25/21 03/10/22 History Cetirizine HCl [Zyrtec] 10 mg PO HS 08/07/21 03/10/22 History Metoprolol Succinate (ER) [Toprol 25 mg PO BID 08/17/21 03/10/22 History XL] Allergies Allergy/AdvReac Type Severity Reaction Status Date / Time venom-honey bee Allergy Swelling Verified 03/10/22 03:06 [bee venom (honey bee)] at site of sting flecainide AdvReac "v-tach" Verified 03/10/22 03:06 lisinopril AdvReac Cough Verified 03/10/22 03:06 venlafaxine [From Effexor] AdvReac Vertigo Verified 03/10/22 03:06 Physical Exam Vitals: Vital Signs Temp Pulse Pulse Resp BP BP Pulse Ox 03/10/22 12:00 128 H 18 134/75 98 03/10/22 09:37 70 18 03/10/22 08:36 97.4 F L 70 18 109/80 96 03/10/22 08:15 140 H 22 108/81 96 03/10/22 07:30 142 H 22 101/89 97 03/10/22 06:24 144 H 96 03/10/22 05:50 149 H 18 108/80 95 03/10/22 04:50 142 H 17 103/82 97 03/10/22 03:50 128 H 16 103/75 97 03/10/22 03:31 98.4 F 155 H 18 127/83 03/10/22 03:30 141 H 8 L 127/74 97 03/10/22 03:04 98.4 F 81 18 137/91 96 Intake and Output 03/09/22 03/10/22 03/10/22 22:59 06:59 14:59 Other: Voiding Method Toilet Weight 158.757 kg 158.757 kg Results 03/10/22 03:19 03/10/22 03:19 Cardiac Enzymes 03/10/22 03/10/22 03/10/22 Range/Units 03:19 03:19 07:18 AST 25 (14-36) U/L Troponin I <0.012 <0.012 (0.000-0.034) ng/mL 03/10/22 Range/Units 09:58 AST (14-36) U/L Troponin I <0.012 (0.000-0.034) ng/mL Coagulation 03/10/22 Range/Units 03:19 PT 10.0 (9.0-12.0) sec APTT 24.6 (22.0-30.0) sec CBC 03/10/22 Range/Units 03:19 WBC 12.2 H (3.8-10.6) k/uL RBC 4.68 (3.80-5.40) m/uL Hgb 13.5 (11.4-16.0) gm/dL Hct 38.2 (34.0-46.0) % Plt Count 131 L (150-450) k/uL Comprehensive Metabolic Panel 03/10/22 Range/Units 03:19 Sodium 130 L (137-145) mmol/L Potassium 3.7 (3.5-5.1) mmol/L Chloride 99 (98-107) mmol/L Carbon Dioxide 22 (22-30) mmol/L BUN 13 (7-17) mg/dL Creatinine 0.54 (0.52-1.04) mg/dL Glucose 192 H (74-99) mg/dL Calcium 8.4 (8.4-10.2) mg/dL AST 25 (14-36) U/L ALT 29 (4-34) U/L Alkaline Phosphatase 44 (38-126) U/L Total Protein 6.9 (6.3-8.2) g/dL Albumin 3.9 (3.5-5.0) g/dL Current Medications Generic Name Dose Route Start Last Admin Trade Name Freq PRN Reason Stop Dose Admin Apixaban 5 mg 03/10/22 21:00 Apixaban 5 Mg Tab PO BID [facility] Protocol Clonazepam 0.5 mg 03/10/22 10:31 Clonazepam 0.5 Mg Tab PO HS PRN insomnia/anxiety Sodium Chloride 1,000 mls @ 130 mls/hr 03/10/22 03:45 03/10/22 12:53 Saline 0.9% IV 130 mls/hr .Q7H42M [facility] Administration Sodium Chloride 1,000 mls @ 130 mls/hr 03/10/22 05:15 03/10/22 07:06 Saline 0.9% IV Not Given .Q7H42M [facility] Amiodarone HCl 450 mg/ 250 mls @ 16.667 mls/hr 03/10/22 13:00 Dextrose/Water IV 03/11/22 06:59 .Q15H [facility] Protocol 0.5 MG/MIN Loratadine 10 mg 03/10/22 21:00 Loratadine 10 Mg Tab PO HS [facility] Medroxyprogesterone Acetate 10 mg 03/10/22 10:45 03/10/22 11:15 Medroxyprogesterone 10 Mg Tablet PO 10 mg DAILY [facility] Administration Metoprolol Succinate 50 mg 03/10/22 10:45 03/10/22 11:15 Metoprolol Succinate (Er) 50 Mg Tab.Er.24h PO 50 mg BID [facility] Administration Morphine Sulfate 4 mg 03/10/22 05:04 Morphine Sulfate 4 Mg/Ml Syringe IV Q4HR PRN Severe Pain (Scale 7 to 10) Naloxone HCl 0.2 mg 03/10/22 05:04 Naloxone 0.4 Mg/Ml 1 Ml Vial IV Q2M PRN Opioid Reversal Ondansetron HCl 4 mg 03/10/22 05:04 Ondansetron 4 Mg/2 Ml Vial IVP Q8HR PRN Nausea And Vomiting Pravastatin Sodium 10 mg 03/11/22 09:00 Pravastatin Sodium 20 Mg Tab PO DAILY [facility] Intake and Output 03/09/22 03/10/22 03/10/22 22:59 06:59 14:59 Other: Voiding Method Toilet Weight 158.757 kg 158.757 kg Patient Weight 03/11/22 06:59 Weight 158.757 kg 03/10/22 03:19 03/10/22 03:19
[2022-03-10] MEDS: AMIODARONE 450 MG in DEXTROSE 5% IN WATER 250 ML IV SCH ×2 (13:47)
[2022-03-10 16:50] LABS: Glucose,Whole Blood 140 mg/dL (70-110)
[2022-03-10] MEDS: APIXABAN 5 MG TAB PO SCH (20:21)
[2022-03-10 20:24] LABS: Glucose,Whole Blood 191 mg/dL (70-110)
[2022-03-10] MEDS ORDERED: LORATADINE 10 MG TAB PO SCH (21:00)
[2022-03-11] MEDS: AMIODARONE 450 MG in DEXTROSE 5% IN WATER 250 ML IV SCH ×2 (04:11)
[2022-03-11 06:13] LABS: Glucose,Whole Blood 149 mg/dL (70-110)
[2022-03-11 08:23] VITALS: RESP 16
[2022-03-11] MEDS ORDERED: PRAVASTATIN SODIUM 20 MG TAB PO SCH (09:00)
[2022-03-11] MEDS: APIXABAN 5 MG TAB PO SCH (10:10)
[2022-03-11] MEDS: METOPROLOL SUCCINATE (ER) 50 MG TAB.ER.24H PO SCH (10:10)
[2022-03-11] MEDS: medroxyPROGESTERone 10 MG TABLET PO SCH (10:10)
[2022-03-11 11:41] LABS: Glucose,Whole Blood 119 mg/dL (70-110)
[2022-03-11 12:54] VITALS: BP 143/63; PULSE 58; TEMP 98.8
--- NOTE | 2022-03-11 13:19 | P.PN ---
Subjective HISTORY OF PRESENTING ILLNESS Patient is a pleasant 51-year-old female with history of paroxysmal atrial fibrillation status post pulmonary vein ablation July 2021, hypertension, diabetes mellitus type 2, obesity, adverse reaction to flecainide with reported ventricular tachycardia who presents secondary to an A. fib episode. She states she has not been feeling well last few days with some nausea, upset stomach and decreased appetite. She had a episode of vomiting and then afterwards immediately noticed her heart racing and feeling somewhat more short of breath. She is usually fairly symptomatic from her A. fib. She did have one brief ep isode after the A. fib ablation and july with A. fib and was placed on amiodarone temporarily. Currently she was placed on amiodarone drip at 1 and heart rate somewhat better controlled in the 70s to 90s however still symptomatic with her heart racing sensation. She denies any chest pain or pressure. Denies any change in medications. She follows with Dr. Mcdaniel. She does have 1+ lower extremity edema which is new for her. She has been receiving IV fluids at 100 mL per hour. 03/11 Patient seen and examined. Patient converted to sinus rhythm and feels much better. No chest pain or pressure or lightheadedness. PHYSICAL EXAMINATION Vital signs reviewed. CONSTITUTIONAL: No apparent distress, obese HEENT: Head is normocephalic. Pupils are equal, round. Sclerae anicteric. Mucous membranes of the mouth are moist. No JVD. No carotid bruit. CHEST EXAMINATION: Lungs are clear to auscultation. No chest wall tenderness is noted on palpation or with deep breathing. HEART EXAMINATION: Irregular rate and rhythm. S1, S2 heard. No murmurs, gallops or rub. ABDOMEN: Soft, nontender. Positive bowel sounds. EXTREMITIES: 2+ peripheral pulses, no lower extremity edema and no calf tenderness. NEUROLOGIC EXAMINATION: Patient is awake, alert and oriented x3. ASSESSMENT 1. Paroxysmal atrial fibrillation symptomatic 2. Chronic diastolic heart failure 3. 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 Hypertension 5. Diabetes mellitus type 2 6. Obesity 7. History of ventricular tachycardia with Flecainide 8. Recent nausea, vomiting, decreased appetite PLAN Patient feeling better and in normal sinus rhythm. Given long-term side effects of amiodarone and prior issues with flexion denied we'll continue with current rate control and follow-up with Dr. Mcdaniel in one week to discuss further options. Stable for DC home today. Objective - Vital Signs Vital signs: Vital Signs Temp 98.8 F 03/11/22 12:54 Pulse 58 L 03/11/22 12:54 Resp 16 03/11/22 12:54 BP 143/63 03/11/22 12:54 Pulse Ox 100 03/11/22 12:54 FiO2 Intake & Output 03/10/22 03/11/22 03/11/22 18:59 06:59 18:59 Intake Total 440.007 120 Balance 440.007 120 Weight 158.757 kg Intake: Intake, IV Titration 440.007 Amount Amiodarone 450 mg In 340.007 Dextrose 5% in Water 250 ml @ 0.5 MG/MIN 16.667 mls/hr IV .Q15H [facility] Rx#: [id number] Magnesium Sulfate-D5w Pmx 100 1 gm In Dextrose/Water 1 100ml.bag @ 100 mls/hr IVPB Q1H [facility] Rx#: [id number] Oral 120 Other: Voiding Method Toilet Toilet Toilet # Voids 4 2 4 # Bowel Movements 1 - Labs CBC & Chem 7: 03/10/22 03:19 03/10/22 03:19 Labs: Abnormal Lab Results - Last 24 Hours (Table) 03/10/22 03/10/22 03/11/22 Range/Units 16:42 20:22 06:11 POC Glucose (mg/dL) 140 H 191 H 149 H (70-110) mg/dL 03/11/22 Range/Units 11:40 POC Glucose (mg/dL) 119 H (70-110) mg/dL
--- NOTE | 2022-03-12 04:56 | P.DS ---
Providers Date of admission: 03/10/22 05:04 Expected date of discharge: 03/11/22 Attending physician: Bill Page Consults: 03/10/22 05:04 Consult Physician Routine Consulting Provider: Herrera Marie Consult Reason/Comments: [email or web address] Do you want consulting provider notified?: Yes Primary care physician: Joselyn Dougherty [facility] Course: Final diagnosis -Atrial fibrillation with rapid and regular rate: Probably precipitated by viral infection -Leukocytosis secondary to viral upper respiratory illness patient does have sinusitis -Hyponatremia: Secondary to diuretics which will be held for now -Hypertension -Hyperlipidemia -DVT prophylaxis -Full code Discharge disposition Patient is being discharged in a stable condition with guarded prognosis to home. Patient will follow-up with Dr. Dougherty in the outpatient setting upon discharge. Patient is to follow-up with cardiology as scheduled. Total time taken is greater than 35 minutes. Hospital course This is a 51-year-old female who was recently admitted with A. fib RVR and being monitored. Patient has been having symptoms of upper respiratory infection, most likely something viral. Coumadin influenza and RSV testing are negative. Patient was placed on Cardizem and converted to continue Toprol. Diuretics were held and will resume low-dose and recommended follow-up. Patient reports she has an appointment with cardiology. Patient reports to feeling well and has been cleared by cardiology for discharge home. Currently no reports of chest pain, shortness of breath, or palpitations. Patient is afebrile. No reports of nausea or vomiting and patient is tolerating diet. Patient will be discharged home today. Physical exam: Gen: This is a 51-year-old female who is awake, alert and oriented 3 well- developed, well-nourished, morbidly obese HEENT: Head is atraumatic, normocephalic. Pupils equal, round. Sclerae is anicteric. NECK: Supple. No JVD. No lymphadenopathy. No thyromegaly. LUNGS: Clear to auscultation. No wheezes or rhonchi. No intercostal retractions. HEART: S1, S2 are muffled ABDOMEN: Soft. Obese. Bowel sounds are present. No masses. No tenderness. EXTREMITIES: No pedal edema. No calf tenderness. NEUROLOGICAL: Patient is awake, alert and oriented x3. Cranial nerves 2 through 12 are grossly intact. Please refer to medication reconciliation sheet for a list of medications. The impression and plan of care has been dictated by Melissa Corley, Nurse Practitioner as directed. Dr. Maria D MD I have performed a history and examination and MDM of this patient, discussed the same with the dictator, and agree with the dictator's assessment and plan as written ,documented as a scribe. Based on total visit time, I have performed more than 50% of the visit. Patient Condition at Discharge: Good Plan - Discharge Summary Discharge Rx Participant: Yes New Discharge Prescriptions: New Metoprolol Succinate (ER) [Toprol XL] 50 mg PO BID 30 Days #60 tab Continue Triamterene/Hydrochlorothiazid [Triamterene-Hctz 37.5-25 mg Tb] 1 tab PO DAILY metFORMIN HCL [Glucophage] 500 mg PO BID Apixaban [Eliquis] 5 mg PO BID clonazePAM [KlonoPIN] 0.5 - 1 mg PO HS PRN PRN Reason: insomnia/anxiety Cetirizine HCl [Zyrtec] 10 mg PO HS Medroxyprogesterone Acetate [Provera] 10 mg PO DAILY Pravastatin Sodium [Pravachol] 10 mg PO DAILY Discontinued Metoprolol Succinate (ER) [Toprol XL] 25 mg PO BID Discharge Medication List Triamterene/Hydrochlorothiazid [Triamterene-Hctz 37.5-25 mg Tb] 1 tab PO DAILY 05/03/15 [History] Apixaban [Eliquis] 5 mg PO BID 07/15/19 [History] metFORMIN HCL [Glucophage] 500 mg PO BID 07/15/19 [History] Medroxyprogesterone Acetate [Provera] 10 mg PO DAILY 04/25/21 [History] Pravastatin Sodium [Pravachol] 10 mg PO DAILY 04/25/21 [History] clonazePAM [KlonoPIN] 0.5 - 1 mg PO HS PRN 04/25/21 [History] Cetirizine HCl [Zyrtec] 10 mg PO HS 08/07/21 [History] Metoprolol Succinate (ER) [Toprol XL] 50 mg PO BID 30 Days #60 tab 03/11/22 [Rx] Follow up Appointment(s)/Referral(s): Stephen Mcdaniel MD [STAFF PHYSICIAN] - 03/18/22 11:30 am Joselyn Dougherty III, MD [Primary Care Provider] - 1-2 days (Office will call with date and time of follow up appointment) Patient Instructions/Handouts: A-fib (Atrial Fibrillation) (DC) Activity/Diet/Wound Care/Special Instructions: Activity Limited until follow-up Follow-up with primary care provider on discharge Follow-up with cardiology as discussed Continue taking medications as prescribed Monitor blood pressure and heart rate and keep a diary of readings for cardiology follow-up Discharge Disposition: HOME SELF-CARE
== END 2022-03-11 16:12 | disposition home or self-care (01) | DRG 309 ==
LOC: EC 03:03 → 3SCARD 05:04
PROVIDERS: ADMIT Hospitalist; ATTEND Hospitalist
DX: I48.0 Paroxysmal atrial fibrillation (principal); E87.1 Hypo-osmolality and hyponatremia; Z68.43 Body mass index [BMI] 50.0-59.9, adult; I50.32 Chronic diastolic (congestive) heart failure; E11.9 Type 2 diabetes mellitus without complications; E66.9 Obesity, unspecified; E78.5 Hyperlipidemia, unspecified; F32.A Depression, unspecified; F41.9 Anxiety disorder, unspecified; I11.0 Hypertensive heart disease with heart failure; T50.2X5A Adverse effect of carbonic-anhydrase inhibitors, benzothiadiazides and other diuretics, initial encounter; J32.8 Other chronic sinusitis; D64.9 Anemia, unspecified; Z20.822 Contact with and (suspected) exposure to COVID-19; Z79.01 Long term (current) use of anticoagulants; Z88.8 Allergy status to other drugs, medicaments and biological substances; Z98.890 Other specified postprocedural states; Z79.84 Long term (current) use of oral hypoglycemic drugs; Z79.899 Other long term (current) drug therapy; Z86.79 Personal history of other diseases of the circulatory system
CPT/HCPCS: 36415; 71046; 80053; 83735; 84484; 85025; 85610; 85730; 87636; 93005; 96361; 96365; 96367; 96375; 96376; 99291

== ENCOUNTER 2022-07-03 12:29 | Observation (INO) | payer BC ==
[2022-07-03 12:37] VITALS: TEMP 98
[2022-07-03] MEDS ORDERED: DILTIAZEM DRIP BOLUS FROM BAG 1 MG SOLN IV ONE (13:27)
[2022-07-03] MEDS ORDERED: SODIUM CHLORIDE 0.9% 500 ML 500 ML IV STA (13:27)
[2022-07-03] MEDS ORDERED: DILTIAZEM 125 MG in SODIUM CHLORIDE 0.9% 100 ML IV SCH (13:30)
--- NOTE | 2022-07-03 13:33 | ED ---
General Adult HPI - General Chief complaint: Arrhythmia/Palpitations Stated complaint: afib Time Seen by Provider: 07/03/22 12:45 Source: patient, RN notes reviewed, old records reviewed Mode of arrival: ambulatory Limitations: no limitations - History of Present Illness Initial comments: This a 52-year-old female presents emergency department stating that her A. fib is out of control again. Patient states she has had a history of it. Patient states she had an ablation but it only lasted 10 days. Patient states she takes metoprolol long-acting in the morning 50 mg. Patient states she has taken 100 mg short-acting metoprolol at 10:30 this morning. Patient she feels her heart racing however there is no chest pain or shortness of breath or difficulty breathing. Patient states she's had no recent fever chills or cough per patient has any nausea vomiting. Patient denies any lightheadedness or dizziness. Patient states in the past when she's had it she found it difficult to walk but today she was not having a problem. Patient denies any increased swelling to the legs or calf tenderness - Related Data Home Medications Medication Instructions Recorded Confirmed Apixaban [Eliquis] 5 mg PO BID 07/15/19 07/03/22 metFORMIN HCL [Glucophage] 500 mg PO BID 07/15/19 07/03/22 Medroxyprogesterone Acetate 10 mg PO DAILY 04/25/21 07/03/22 [Provera] Pravastatin Sodium [Pravachol] 10 mg PO HS 04/25/21 07/03/22 clonazePAM [KlonoPIN] 0.5 - 1 mg PO HS PRN 04/25/21 07/03/22 Cetirizine HCl [Zyrtec] 10 mg PO HS 08/07/21 07/03/22 Ferrous Sulfate [Feosol] 325 mg PO DAILY 07/03/22 07/03/22 Losartan Potassium 100 mg PO HS 07/03/22 07/03/22 Magnesium Oxide [Mag-Ox] 400 mg PO DAILY 07/03/22 07/03/22 Triamterene-Hctz 37.5-25Mg 1 tab PO DAILY 07/03/22 07/03/22 [Maxzide 37.5-25] metFORMIN HCL [Glucophage] 500 mg PO BID 07/03/22 07/03/22 Previous Rx's Medication Instructions Recorded Metoprolol Succinate (ER) [Toprol 50 mg PO BID 30 Days #60 tab 03/11/22 XL] Allergies Allergy/AdvReac Type Severity Reaction Status Date / Time venom-honey bee Allergy Swelling Verified 07/03/22 13:40 [bee venom (honey bee)] at site of sting flecainide AdvReac "v-tach" Verified 07/03/22 13:40 lisinopril AdvReac Cough Verified 07/03/22 13:40 venlafaxine [From Effexor] AdvReac Vertigo Verified 07/03/22 13:40 Review of Systems ROS Statement: Those systems with pertinent positive or pertinent negative responses have been documented in the HPI. ROS Other: All systems not noted in ROS Statement are negative. Past Medical History Past Medical History: Atrial Fibrillation, Hypertension Additional Past Medical History / Comment(s): anemia History of Any Multi-Drug Resistant Organisms: None Reported Past Surgical History: Section Additional Past Surgical History / Comment(s): D &C 09/2018 Past Anesthesia/Blood Transfusion Reactions: No Reported Reaction Past Psychological History: Anxiety, Depression Smoking Status: Never smoker Past Alcohol Use History: None Reported, Rare Past Drug Use History: None Reported - Past Family History Father Family Medical History: Hyperlipidemia, Osteoarthritis (OA) Mother Family Medical History: Thyroid Disorder Additional Family Medical History / Comment(s): GRAVES DISEASE. PT'S MOM IN HER SLEEP AT AGE OF 63 AFTER SURGERY. General Exam - General Exam Comments Initial Comments: GENERAL: Patient is well-developed and well-nourished. Patient is nontoxic and well- hydrated and is in mild distress. ENT: Neck is soft and supple. No significant lymphadenopathy is noted. Oropharynx is clear. Moist mucous membranes. Neck has full range of motion without eliciting any pain. EYES: The sclera were anicteric and conjunctiva were pink and moist. Extraocular movements were intact and pupils were equal round and reactive to light. Eyelids were unremarkable. PULMONARY: Unlabored respirations. Good breath sounds bilaterally. No audible rales rhonchi or wheezing was noted. CARDIOVASCULAR: There is a regular rate and rhythm without any murmurs gallops or rubs. ABDOMEN: Soft and nontender with normal bowel sounds. SKIN: Skin is clear with no lesions or rashes and otherwise unremarkable. NEUROLOGIC: Patient is alert and oriented x3. Cranial nerves II through XII are grossly intact. Motor and sensory are also intact. Normal speech, volume and content. Symmetrical smile. MUSCULOSKELETAL: Normal extremities with adequate strength and full range of motion. LYMPHATICS: No significant lymphadenopathy is noted PSYCHIATRIC: Normal psychiatric evaluation. Limitations: no limitations Course Vital Signs 07/03/22 07/03/22 07/03/22 12:34 13:18 15:16 Temperature 98 F Pulse Rate 52 L 147 H 113 H Pulse Rate [ 147 H Side Framer ] Respiratory 18 18 19 Rate Blood Pressure 95/73 114/104 115/97 O2 Sat by Pulse 95 98 96 Oximetry Medical Decision Making - Medical Decision Making EKG shows atrial fibrillation with rapid ventricular response at 159 bpm QRS is 96 QT interval is 270 QTC is 359 per patient's EKG shows no ST segment elevation however there is some ST segment depression in the precordial leads. Was pt. sent in by a medical professional or institution (, PA, OIL AND GAS SUPERINTENDENT, urgent care, hospital, or alf...) When possible be specific @ -No Did you speak to anyone other than the patient for history (EMS, parent, family, police, friend...)? What history was obtained from this source @ -No Did you review nursing and triage notes (agree or disagree)? Why? @ -I reviewed and agree with nursing and triage notes Were old charts reviewed (outside hosp., previous admission, EMS record, old EKG, old radiological studies, urgent care reports/EKG's, alf records)? Report findings @ -I reviewed the patient's prior EKGs as well as prior lab work Differential Diagnosis (chest pain, altered mental status, abdominal pain women, abdominal pain men, vaginal bleeding, weakness, fever, dyspnea, syncope, headache, dizziness, GI bleed, back pain, seizure, CVA, palpatations, mental health, musculoskeletal)? @ -Differential Palpitations Ventricular arrhythmias, atrial arrhythmias, myocardial infarction, anemia, thyrotoxicosis, electrolyte imbalance, hypokalemia, pulmonary embolism, pulmonary disease, drugs, alcohol, anxiety, stress.... This is not meant to be an all-inclusive list. EKG interpreted by me (3pts min.). @ -As above X-rays interpreted by me (1pt min.). @ -Chest x-ray was interpreted by myself as no acute abnormality. CT interpreted by me (1pt min.). @ -None done U/S interpreted by me (1pt. min.). @ -None done What testing was considered but not performed or refused? (CT, X-rays, U/S, labs)? Why? @ -None What meds were considered but not given or refused? Why? @ -None Did you discuss the management of the patient with other professionals (professionals i.e. DrGillian, PA, OIL AND G[employer] SUPERINTENDENT, lab, RT, psych nurse, social sciences department chair, forest economics professor, teacher, community reinvestment act officer, manager of case management)? Give summary @ -[facility] and I informed him of the lab work and x-rays. Was smoking cessation discussed for >3mins.? @ -No Was critical care preformed (if so, how long)? @ -35 minutes Were there social determinants of health that impacted care today? How? (Homelessness, low income, unemployed, alcoholism, drug addiction, transportat ion, low edu. Level, literacy, decrease access to med. care, alf, rehab)? @ -No Was there de-escalation of care discussed even if they declined (Discuss DNR or withdrawal of care, Hospice)? DNR status @ -No What co-morbidities impacted this encounter? (DM, HTN, Smoking, COPD, CAD, Cancer, CVA, ARF, Chemo, Hep., AIDS, mental health diagnosis, sleep apnea, morbid obesity)? @ -None Was patient admitted / discharged? Hospital course, mention meds given and route, prescriptions, significant lab abnormalities, going to OR and other pertinent info. @ -Patient was placed on Cardizem but no bolus was given because the patient's blood pressure was tenderness. Patient was oriented was so heparin was not started at this time. [facility] work came back and was all normal and he agreed to admit the patient admitted the patient wrote admitting orders I consulted cardiology. Undiagnosed new problem with uncertain prognosis? @ -No Drug Therapy requiring intensive monitoring for toxicity (Heparin, Nitro, Insulin, Cardizem)? @ -No Were any procedures done? @ -No Diagnosis/symptom? @ -Atrial fibrillation with rapid ventricular response Acute, or Chronic, or Acute on Chronic? @ -Acute on chronic Uncomplicated (without systemic symptoms) or Complicated (systemic symptoms)? @ -Complicated Side effects of treatment? @ -No Exacerbation, Progression, or Severe Exacerbation? @ -No Poses a threat to life or bodily function? How? (Chest pain, USA, OR, pneumonia, PE, COPD, DKA, ARF, appy, cholecystitis, CVA, Diverticulitis, Homicidal, Suicidal, threat to staff... and all critical care pts) @ -Yes this can lead to poor perfusion and morbidity or mortality - Lab Data Result diagrams: 07/03/22 13:30 07/03/22 13:30 Lab Results 07/03/22 07/03/22 07/03/22 Range/Units 13:30 13:30 13:30 WBC 9.5 (3.8-10.6) k/uL RBC 5.08 (3.80-5.40) m/uL Hgb 14.6 (11.4-16.0) gm/dL Hct 41.9 (34.0-46.0) % MCV 82.5 (80.0-100.0) fL MCH 28.8 (25.0-35.0) pg MCHC 34.9 (31.0-37.0) g/dL RDW 13.2 (11.5-15.5) % Plt Count 172 (150-450) k/uL MPV 11.8 Neutrophils % 77 % Lymphocytes % 14 % Monocytes % 6 % Eosinophils % 1 % Basophils % 0 % Neutrophils # 7.3 (1.3-7.7) k/uL Lymphocytes # 1.3 (1.0-4.8) k/uL Monocytes # 0.6 (0-1.0) k/uL Eosinophils # 0.1 (0-0.7) k/uL Basophils # 0.0 (0-0.2) k/uL Manual Slide Review Performed Large Platelets Present RBC Morphology Normal PT 10.1 (9.0-12.0) sec INR 0.9 (<1.2) APTT 24.6 (22.0-30.0) sec Sodium 136 L (137-145) mmol/L Potassium 4.5 (3.5-5.1) mmol/L Chloride 104 (98-107) mmol/L Carbon Dioxide 20 L (22-30) mmol/L Anion Gap 12 mmol/L BUN 16 (7-17) mg/dL Creatinine 0.61 (0.52-1.04) mg/dL Est GFR (CKD-EPI)AfAm >90 (>60 ml/min/1.73 sqM) Est GFR (CKD-EPI)NonAf >90 (>60 ml/min/1.73 sqM) Glucose 143 H (74-99) mg/dL Calcium 9.4 (8.4-10.2) mg/dL Magnesium 1.8 (1.6-2.3) mg/dL Total Bilirubin 2.0 H (0.2-1.3) mg/dL AST 27 (14-36) U/L ALT 31 (4-34) U/L Alkaline Phosphatase 38 (38-126) U/L Troponin I (0.000-0.034) ng/mL Total Protein 8.1 (6.3-8.2) g/dL Albumin 4.5 (3.5-5.0) g/dL 07/03/22 Range/Units 13:30 WBC (3.8-10.6) k/uL RBC (3.80-5.40) m/uL Hgb (11.4-16.0) gm/dL Hct (34.0-46.0) % MCV (80.0-100.0) fL MCH (25.0-35.0) pg MCHC (31.0-37.0) g/dL RDW (11.5-15.5) % Plt Count (150-450) k/uL MPV Neutrophils % % Lymphocytes % % Monocytes % % Eosinophils % % Basophils % % Neutrophils # (1.3-7.7) k/uL Lymphocytes # (1.0-4.8) k/uL Monocytes # (0-1.0) k/uL Eosinophils # (0-0.7) k/uL Basophils # (0-0.2) k/uL Manual Slide Review Large Platelets RBC Morphology PT (9.0-12.0) sec INR (<1.2) APTT (22.0-30.0) sec Sodium (137-145) mmol/L Potassium (3.5-5.1) mmol/L Chloride (98-107) mmol/L Carbon Dioxide (22-30) mmol/L Anion Gap mmol/L BUN (7-17) mg/dL Creatinine (0.52-1.04) mg/dL Est GFR (CKD-EPI)AfAm (>60 ml/min/1.73 sqM) Est GFR (CKD-EPI)NonAf (>60 ml/min/1.73 sqM) Glucose (74-99) mg/dL Calcium (8.4-10.2) mg/dL Magnesium (1.6-2.3) mg/dL Total Bilirubin (0.2-1.3) mg/dL AST (14-36) U/L ALT (4-34) U/L Alkaline Phosphatase (38-126) U/L Troponin I <0.012 (0.000-0.034) ng/mL Total Protein (6.3-8.2) g/dL Albumin (3.5-5.0) g/dL Critical Care Time Critical Care Time: Yes Total Critical Care Time: 35 Disposition Clinical Impression: Atrial fibrillation with RVR Disposition: ADMITTED IP TO THIS HOSP Referrals: Joselyn Dougherty III, MD [Primary Care Provider] - 1-2 days Time of Disposition: 03:30
[2022-07-03 13:50] LABS: Basophils % (A) 0 %; Eosinophils # (A) 0.1 k/uL (0-0.7); Eosinophils % (A) 1 %; HCT 41.9 % (34.0-46.0); HGB 14.6 gm/dL (11.4-16.0); Lymphocytes # (A) 1.3 k/uL (1.0-4.8); Lymphocytes % (A) 14 %; MCH 28.8 pg (25.0-35.0); MCHC 34.9 g/dL (31.0-37.0); MCV 82.5 fL (80.0-100.0); Mean Platelet Volume 11.8; Monocytes # (A) 0.6 k/uL (0-1.0); Monocytes % (A) 6 %; Neutrophils # (A) 7.3 k/uL (1.3-7.7); Neutrophils % (A) 77 %; Platelet Count 172 k/uL (150-450); RBC 5.08 m/uL (3.80-5.40); RDW 13.2 % (11.5-15.5); WBC 9.5 k/uL (3.8-10.6)
[2022-07-03 14:01] LABS: INR 0.9 (<1.2); Partial Thromboplastin Time 24.6 sec (22.0-30.0); Prothrombin Time 10.1 sec (9.0-12.0)
[2022-07-03 14:07] LABS: ALT 31 U/L (4-34); AST 27 U/L (14-36); African American GFR (CKD) >90 (>60 ml/min/1.73 sqM); Albumin 4.5 g/dL (3.5-5.0); Alkaline Phosphatase 38 U/L (38-126); Anion Gap 12 mmol/L; Blood Urea Nitrogen 16 mg/dL (7-17); Calcium 9.4 mg/dL (8.4-10.2); Carbon Dioxide 20 mmol/L (22-30); Chloride 104 mmol/L (98-107); Glucose 143 mg/dL (74-99); Magnesium 1.8 mg/dL (1.6-2.3); Non-African American GFR(CKD) >90 (>60 ml/min/1.73 sqM); Potassium 4.5 mmol/L (3.5-5.1); Sodium 136 mmol/L (137-145); Total Protein 8.1 g/dL (6.3-8.2)
--- NOTE | 2022-07-03 14:40 | XR ---
EXAMINATION TYPE: XR chest 2V DATE OF EXAM: 07/03/2022 COMPARISON: 03/10/2022 INDICATION: A. Fib TECHNIQUE: Frontal and lateral views of the chest are obtained. FINDINGS: The heart size is normal. The pulmonary vasculature is normal. The lungs are clear. IMPRESSION: 1. No acute pulmonary process.
[2022-07-03 14:44] LABS: Large Platelets Present
[2022-07-03 14:45] LABS: RBC Morphology Normal
[2022-07-03] MEDS ORDERED: HYDROmorphone 0.5 MG/0.5 ML SYRINGE IVP STA (15:27)
[2022-07-03] MEDS ORDERED: clonazePAM 0.5 MG TAB PO PRN (16:05)
[2022-07-03] MEDS ORDERED: NITROGLYCERIN SL TABS 0.4 MG TAB SUBLINGUAL PRN (16:08)
[2022-07-03 20:04] LABS: Glucose,Whole Blood 204 mg/dL (70-110)
[2022-07-03] MEDS: APIXABAN 5 MG TAB PO SCH (20:05)
[2022-07-03] MEDS: metFORMIN 500 MG TAB PO SCH (20:05)
[2022-07-03] MEDS: HYDROcodone/APAP 5-325MG 1 EACH TAB PO PRN ×2 (20:06→23:47)
[2022-07-03] MEDS: METOPROLOL SUCCINATE (ER) 50 MG TAB.ER.24H PO SCH (20:06)
[2022-07-03] MEDS ORDERED: LOSARTAN 50 MG TAB PO SCH (21:00)
[2022-07-03] MEDS ORDERED: PRAVASTATIN SODIUM 20 MG TAB PO SCH (21:00)
[2022-07-04] MEDS: HYDROcodone/APAP 5-325MG 1 EACH TAB PO PRN ×2 (03:41→09:17)
[2022-07-04] MEDS ORDERED: ASPIRIN 325 MG TAB PO SCH (09:00)
[2022-07-04] MEDS ORDERED: TRIAMTERENE-HCTZ 37.5-25MG 1 EACH TAB PO SCH (09:00)
[2022-07-04] MEDS: APIXABAN 5 MG TAB PO SCH (09:00)
[2022-07-04] MEDS: metFORMIN 500 MG TAB PO SCH (09:00)
[2022-07-04] MEDS ORDERED: MAGNESIUM OXIDE 400 MG TAB PO SCH (09:00)
[2022-07-04] MEDS ORDERED: medroxyPROGESTERone 10 MG TABLET PO SCH (09:00)
[2022-07-04] MEDS: METOPROLOL SUCCINATE (ER) 50 MG TAB.ER.24H PO SCH (09:00)
[2022-07-04 09:03] VITALS: BP 118/57; PULSE 58; RESP 14
--- NOTE | 2022-07-04 12:04 | P.CRDCN ---
History of Present Illness Consult date: 07/04/22 Consult reason: atrial fibrillation (With RVR) History of present illness: HISTORY OF PRESENTING ILLNESS Patient is a 52-year-old female patient of Dr. Mcdaniel with history of paroxysmal atrial fibrillation status post pulmonary vein ablation July 2021, hypertension, diabetes mellitus type 2, obesity, adverse reaction to flecainide with reported ventricular tachycardia, phrenic nerve paresis with partial recovery, obstructive sleep apnea. We have been asked to evaluate the patient for a atrial fibrillation with RVR. Patient presented to the emergency center because her atrial fibrillation was out of control. She has been taking all of her medications as directed. Patient denies having any chest pain or shortness of breath. Patient was initially found to be in atrial fibrillation at 147 bpm. She was started on Cardizem and converted to sinus rhythm last evening around 7 PM. Patient denies any symptoms at the time of evaluation. EKG atrial fibrillation with ventricular rate of 159, repeat EKG sinus bradycardia at 50 bpm Chest x-ray no acute process CBC unremarkable. His sodium 136, potassium 4.4, BUN 16 creatinine 0.61. Troponins negative 3. Magnesium 1.8. Liver function tests within normal limits. Home cardiac medications: Eliquis 5 mg twice daily, losartan 100 mg at bedtime, Toprol-XL 50 mg twice daily, pravastatin 10 mg at bedtime Echocardiogram 04/2021: EF 55-60%, moderate concentric left ventricular hypertro phy, no aortic stenosis or regurgitation. Mild mitral regurgitation and mild tricuspid regurgitation. REVIEW OF SYSTEMS At the time of my exam: CONSTITUTIONAL: Denies fever or chills. CARDIOVASCULAR: Denies chest pain, shortness of breath, orthopnea, PND, +palpitations. RESPIRATORY: Denies cough. GASTROINTESTINAL: Denies abdominal pain, no diarrhea, constipation, +nausea +vomiting. MUSCULOSKELETAL: Denies myalgias. NEUROLOGIC: Denies numbness, tingling or weakness. ENDOCRINE: Denies fatigue, weight change, polydipsia or polyurina. GENITOURINARY: Denies burning, hematuria or urgency with micturation. HEMATOLOGIC: Denies history of anemia or bleeding. PHYSICAL EXAMINATION Vital signs reviewed. CONSTITUTIONAL: No apparent distress, obese HEENT: Head is normocephalic. Pupils are equal, round. Sclerae anicteric. Mucous membranes of the mouth are moist. No JVD. No carotid bruit. CHEST EXAMINATION: Lungs are clear to auscultation. No chest wall tenderness is noted on palpation or with deep breathing. HEART EXAMINATION: Regular rate and rhythm. S1, S2 heard. No murmurs, gallops or rub. ABDOMEN: Soft, nontender. Positive bowel sounds. EXTREMITIES: 2+ peripheral pulses, no lower extremity edema and no calf tenderness. NEUROLOGIC EXAMINATION: Patient is awake, alert and oriented x3. ASSESSMENT Paroxysmal atrial fibrillation with RVR Status post A. fib ablation 08/08/2021 with phrenic nerve paresis Hypertension Diabetes mellitus type 2 Obesity History of ventricular tachycardia with Flecainide PLAN Patient to continue home cardiac medications Cardiology has cleared patient for discharge home today. Follow-up with Dr. Mcdaniel in one week. Nurse practitioner note has been reviewed, I agree with the documented findings and plan of care. Patient was seen and examined. Past Medical History Past Medical History: Atrial Fibrillation, Hypertension Additional Past Medical History / Comment(s): anemia History of Any Multi-Drug Resistant Organisms: None Reported Past Surgical History: Section Additional Past Surgical History / Comment(s): D&C 09/2018, cardiac ablation Past Anesthesia/Blood Transfusion Reactions: No Reported Reaction Past Psychological History: Anxiety, Depression Smoking Status: Never smoker Past Alcohol Use History: None Reported, Rare Past Drug Use History: None Reported - Past Family History Father Family Medical History: Hyperlipidemia, Osteoarthritis (OA) Mother Family Medical History: Thyroid Disorder Additional Family Medical History / Comment(s): GRAVES DISEASE. PT'S MOM IN HER SLEEP AT AGE OF 63 AFTER SURGERY. Medications and Allergies Home Medications Medication Instructions Recorded Confirmed Type Apixaban [Eliquis] 5 mg PO BID 07/15/19 07/03/22 History metFORMIN HCL [Glucophage] 500 mg PO BID 07/15/19 07/03/22 History Medroxyprogesterone Acetate 10 mg PO DAILY 04/25/21 07/03/22 History [Provera] Pravastatin Sodium [Pravachol] 10 mg PO HS 04/25/21 07/03/22 History clonazePAM [KlonoPIN] 0.5 - 1 mg PO HS PRN 04/25/21 07/03/22 History Cetirizine HCl [Zyrtec] 10 mg PO HS 08/07/21 07/03/22 History Ferrous Sulfate [Iron (65 MG 325 mg PO DAILY 07/03/22 07/03/22 History Elemental)] Losartan Potassium 100 mg PO HS 07/03/22 07/03/22 History Magnesium Oxide [Mag-Ox] 400 mg PO DAILY 07/03/22 07/03/22 History Triamterene-Hctz 37.5-25Mg 1 tab PO DAILY 07/03/22 07/03/22 History [Maxzide 37.5-25] metFORMIN HCL [Glucophage] 500 mg PO BID 07/03/22 07/03/22 History Metoprolol Succinate (ER) [Toprol 50 mg PO BID 30 Days #60 tab 07/04/22 Rx XL] Allergies Allergy/AdvReac Type Severity Reaction Status Date / Time venom-honey bee Allergy Swelling Verified 07/03/22 13:40 [bee venom (honey bee)] at site of sting flecainide AdvReac "v-tach" Verified 07/03/22 13:40 lisinopril AdvReac Cough Verified 07/03/22 13:40 venlafaxine [From Effexor] AdvReac Vertigo Verified 07/03/22 13:40 Physical Exam Vitals: Vital Signs Temp Pulse Pulse Resp BP BP Pulse Ox 07/04/22 08:00 58 L 14 118/57 98 07/04/22 03:44 52 L 18 128/70 97 07/03/22 23:41 56 L 18 146/77 100 07/03/22 20:00 60 18 122/70 98 07/03/22 15:16 113 H 19 115/97 96 07/03/22 13:18 147 H 147 H 18 114/104 98 07/03/22 12:34 98 F 52 L 18 95/73 95 Intake and Output 07/03/22 07/04/22 07/04/22 22:59 06:59 14:59 Intake Total 24.417 Balance 24.417 Intake: Intake, IV Titration 24.417 Amount Diltiazem 125 mg In 24.417 Sodium Chloride 0.9% 100 ml @ 5 MG/HR 5 mls/hr IV .Q24H [facility] Rx#:[id number] Other: Voiding Method Toilet Weight 158.757 kg Results 07/03/22 13:30 07/03/22 13:30 Cardiac Enzymes 07/03/22 07/03/22 07/03/22 Range/Units 13:30 13:30 17:00 AST 27 (14-36) U/L Troponin I <0.012 <0.012 (0.000-0.034) ng/mL 07/03/22 Range/Units 19:23 AST (14-36) U/L Troponin I <0.012 (0.000-0.034) ng/mL Coagulation 07/03/22 Range/Units 13:30 PT 10.1 (9.0-12.0) sec APTT 24.6 (22.0-30.0) sec CBC 07/03/22 Range/Units 13:30 WBC 9.5 (3.8-10.6) k/uL RBC 5.08 (3.80-5.40) m/uL Hgb 14.6 (11.4-16.0) gm/dL Hct 41.9 (34.0-46.0) % Plt Count 172 (150-450) k/uL Comprehensive Metabolic Panel 07/03/22 Range/Units 13:30 Sodium 136 L (137-145) mmol/L Potassium 4.5 (3.5-5.1) mmol/L Chloride 104 (98-107) mmol/L Carbon Dioxide 20 L (22-30) mmol/L BUN 16 (7-17) mg/dL Creatinine 0.61 (0.52-1.04) mg/dL Glucose 143 H (74-99) mg/dL Calcium 9.4 (8.4-10.2) mg/dL AST 27 (14-36) U/L ALT 31 (4-34) U/L Alkaline Phosphatase 38 (38-126) U/L Total Protein 8.1 (6.3-8.2) g/dL Albumin 4.5 (3.5-5.0) g/dL Intake and Output 07/03/22 07/04/22 07/04/22 22:59 06:59 14:59 Intake Total 24.417 Balance 24.417 Intake: Intake, IV Titration 24.417 Amount Diltiazem 125 mg In 24.417 Sodium Chloride 0.9% 100 ml @ 5 MG/HR 5 mls/hr IV .Q24H [facility] Rx#:[id number] Other: Voiding Method Toilet Weight 158.757 kg 07/03/22 13:30 07/03/22 13:30
[2022-07-04 15:46] LABS: Chol/HDL Ratio 2.66 Ratio
--- NOTE | 2022-07-05 03:08 | P.HPIM ---
History of Present Illness please consider this note as combined H&P and discharge summary This is a pleasant 52 years old female with multiple medical problems including Atrial Fibrillation, Hypertension, anxiety, depression, anemia. Patient presents because of palpitations, no chest pain.while she was in ed she felt little lightheadedness and sob, all of these sysmptoms are resolved now She denies any other symptoms, no change in urine or bowel habits. No fever. No headache weakness numbness or dizziness. On admission patient was tachycardic with heart rate about 147. Currently his heart rate is better controlled and converted to sinus rhythm compared to A. fib on admission. She has unremarkable labs including CBC, INR, BMP and liver enzymes. Serial troponins are negative. Glucose was 143. Bilirubin is 2.0 EKG showing atrial fibrillation with RVR at 159 and plus irregularly irregular Repeat EKG showing sinus bradycardia on 50 Chest x-ray: No acute process. On admission patient was started on Cardizem drip Review of Systems Review of systems CONSTITUTIONAL: No fever, no malaise, no fatigue. HEENT: No recent visual problems or hearing problems. Denied any sore throat. CARDIOVASCULAR: No orthopnea, PND, no palpitations, no syncope. PULMONARY: No shortness of breath, no cough, no hemoptysis. GASTROINTESTINAL: No diarrhea, no nausea, no vomiting, no abdominal pain. Normoactive bowel sounds. NEUROLOGICAL: No headaches, no weakness, no numbness. HEMATOLOGICAL: Denies any bleeding or petechiae. GENITOURINARY: Denies any burning micturition, frequency, or urgency. MUSCULOSKELETAL/RHEUMATOLOGICAL: Denies any joint pain, swelling, or any muscle pain. ENDOCRINE: Denies any polyuria or polydipsia. Past Medical History Past Medical History: Atrial Fibrillation, Hypertension Additional Past Medical History / Comment(s): anemia History of Any Multi-Drug Resistant Organisms: None Reported Past Surgical History: Section Additional Past Surgical History / Comment(s): D&C 09/2018, cardiac ablation Past Anesthesia/Blood Transfusion Reactions: No Reported Reaction Past Psychological History: Anxiety, Depression Smoking Status: Never smoker Past Alcohol Use History: None Reported, Rare Past Drug Use History: None Reported - Past Family History Father Family Medical History: Hyperlipidemia, Osteoarthritis (OA) Mother Family Medical History: Thyroid Disorder Additional Family Medical History / Comment(s): GRAVES DISEASE. PT'S MOM IN HER SLEEP AT AGE OF 63 AFTER SURGERY. Medications and Allergies Home Medications Medication Instructions Recorded Confirmed Type Apixaban [Eliquis] 5 mg PO BID 07/15/19 07/03/22 History metFORMIN HCL [Glucophage] 500 mg PO BID 07/15/19 07/03/22 History Medroxyprogesterone Acetate 10 mg PO DAILY 04/25/21 07/03/22 History [Provera] Pravastatin Sodium [Pravachol] 10 mg PO HS 04/25/21 07/03/22 History clonazePAM [KlonoPIN] 0.5 - 1 mg PO HS PRN 04/25/21 07/03/22 History Cetirizine HCl [Zyrtec] 10 mg PO HS 08/07/21 07/03/22 History Ferrous Sulfate [Iron (65 MG 325 mg PO DAILY 07/03/22 07/03/22 History Elemental)] Losartan Potassium 100 mg PO HS 07/03/22 07/03/22 History Magnesium Oxide [Mag-Ox] 400 mg PO DAILY 07/03/22 07/03/22 History Triamterene-Hctz 37.5-25Mg 1 tab PO DAILY 07/03/22 07/03/22 History [Maxzide 37.5-25] metFORMIN HCL [Glucophage] 500 mg PO BID 07/03/22 07/03/22 History Metoprolol Succinate (ER) [Toprol 50 mg PO BID 30 Days #60 tab 07/04/22 Rx XL] Allergies Allergy/AdvReac Type Severity Reaction Status Date / Time venom-honey bee Allergy Swelling Verified 07/03/22 13:40 [bee venom (honey bee)] at site of sting flecainide AdvReac "v-tach" Verified 07/03/22 13:40 lisinopril AdvReac Cough Verified 07/03/22 13:40 venlafaxine [From Effexor] AdvReac Vertigo Verified 07/03/22 13:40 Physical Exam Vitals: Vital Signs Temp Pulse Pulse Resp BP BP Pulse Ox 07/04/22 03:44 52 L 18 128/70 97 07/03/22 23:41 56 L 18 146/77 100 07/03/22 20:00 60 18 122/70 98 07/03/22 15:16 113 H 19 115/97 96 07/03/22 13:18 147 H 147 H 18 114/104 98 07/03/22 12:34 98 F 52 L 18 95/73 95 Intake and Output 07/03/22 07/04/22 07/04/22 22:59 06:59 14:59 Intake Total 24.417 Balance 24.417 Intake: Intake, IV Titration 24.417 Amount Diltiazem 125 mg In 24.417 Sodium Chloride 0.9% 100 ml @ 5 MG/HR 5 mls/hr IV .Q24H [facility] Rx#:[id number] Other: Weight 158.757 kg GENERAL: The patient is alert and oriented x3, not in any acute distress. Well developed, well nourished. HEENT: Pupils are round and equally reacting to light. EOMI. No scleral icterus. No conjunctival pallor. Normocephalic, atraumatic. No pharyngeal erythema. No thyromegaly. CARDIOVASCULAR: S1 and S2 present. No murmurs, rubs, or gallops. PULMONARY: Chest is clear to auscultation, no wheezing or crackles. ABDOMEN: Soft, nontender, nondistended, normoactive bowel sounds. No palpable organomegaly. MUSCULOSKELETAL: No joint swelling or deformity. EXTREMITIES: No cyanosis, clubbing, or pedal edema. NEUROLOGICAL: Gross neurological examination did not reveal any focal deficits. SKIN: No rashes. no petechiae. Results CBC & Chem 7: 07/03/22 13:30 07/03/22 13:30 Labs: Abnormal Lab Results - Last 24 Hours (Table) 07/03/22 07/03/22 Range/Units 13:30 20:03 Sodium 136 L (137-145) mmol/L Carbon Dioxide 20 L (22-30) mmol/L Glucose 143 H (74-99) mg/dL POC Glucose (mg/dL) 204 H (70-110) mg/dL Total Bilirubin 2.0 H (0.2-1.3) mg/dL Thrombosis Risk Factor Assmnt - Choose All That Apply Any of the Below Risk Factors Present?: Yes Each Factor Represents 1 point: Age 41-60 years Thrombosis Risk Factor Assessment Total Risk Factor Score: 1 Thrombosis Risk Factor Assessment Level: Low Risk Assessment and Plan Assessment: A. fib and RVR, present on admission Hypertension History of anxiety and depression, not an active issue Chronic anemia Plan: Cardiology consult has cleared the patient for discharge on current cardiac medication Continue with cardiac medication Labs and medication were reviewed.. Continue same treatment. Continue with symptomatic treatment. Resume home medication. Monitor labs and vitals. DVT and GI prophylaxis. Further recommendations as per clinical course of the patient DVT prophylaxis: Eliquis GI Prophylaxis: Pepcid Patient was instructed to follow up with her pen rider Dr. Andrea in one week as well as her primary care doctor in 1 week and she verbalized understanding and acceptance
== END 2022-07-04 10:11 | disposition home or self-care (01) ==
LOC: EC 12:29 → 3SCARD 16:10 → INTOOBSV 16:10 → 3SCARD 17:53 → UNDODISIN 07-04 10:11
PROVIDERS: ADMIT Internal Medicine; ATTEND Internal Medicine
DX: I48.0 Paroxysmal atrial fibrillation (principal); I11.9 Hypertensive heart disease without heart failure; I08.1 Rheumatic disorders of both mitral and tricuspid valves; E11.9 Type 2 diabetes mellitus without complications; D64.9 Anemia, unspecified; G47.33 Obstructive sleep apnea (adult) (pediatric); F41.9 Anxiety disorder, unspecified; F32.A Depression, unspecified; E66.9 Obesity, unspecified; Z68.43 Body mass index [BMI] 50.0-59.9, adult; Z79.01 Long term (current) use of anticoagulants; Z79.84 Long term (current) use of oral hypoglycemic drugs; Z79.3 Long term (current) use of hormonal contraceptives; Z79.899 Other long term (current) drug therapy; Z88.8 Allergy status to other drugs, medicaments and biological substances; Z91.030 Bee allergy status; Z98.891 History of uterine scar from previous surgery; Z98.890 Other specified postprocedural states; Z82.61 Family history of arthritis; Z83.49 Family history of other endocrine, nutritional and metabolic diseases
CPT/HCPCS: 96376; 96361 ×2; 96365; 96366; 96375; 99291; 36415; 80061; 80053; 83735; 84484; 85025; 85610; 85730; 71046; J1170

== ENCOUNTER → 2022-07-11 | Outpatient (CLI) | payer BC | END | disposition home or self-care (01) | LOC: LABWHC1 11:54 | PROVIDERS: ATTEND Nurse Practitioner Adult Health | DX: I48.91 Unspecified atrial fibrillation (principal) | CPT/HCPCS: 36415; 83036; 84443 ==

== ENCOUNTER → 2022-07-21 | Outpatient (CLI) | payer BC ==
--- NOTE | 2022-07-21 11:28 | FL ---
EXAMINATION TYPE: FL sniff test without CXR DATE OF EXAM: July 21, 2022 Comparison: Fluoroscopic sniff test October 23, 2021. Most recent chest x-ray July 03, 2022 and older x-rays. 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 Technique: Real time fluoroscopy assessment of the diaphragm during quiet breathing, and deep inspira tion/expiration. Total fluoroscopy time: 48 seconds. Total images: 56 TOTAL DAP: 5462.28 Findings: There is stable slight asymmetric elevation of the right hemidiaphragm. On quiet breathing and deep inspiration/expiration, there is satisfactory symmetric motion of the rig ht hemidiaphragm versus opposite left hemidiaphragm. Impression: Prior visualized right hemidiaphragm paralysis is not apparent on today's study.
== END | disposition home or self-care (01) ==
LOC: RADUSWWP 10:58
PROVIDERS: ATTEND Internal Medicine Clinical Cardiac Electrophysiology
DX: J38.00 Paralysis of vocal cords and larynx, unspecified (principal)
CPT/HCPCS: 76000

== ENCOUNTER → 2023-06-15 | Outpatient (CLI) | payer BC ==
--- NOTE | 2023-06-15 12:47 | FL ---
Fluoroscopy INDICATION: Right diaphragm paralysis FINDINGS: Fluoroscopy time: 22 seconds. Total dose area product (DAP) in uGy*m?, mGy*cm? (or similar): 183.39 Images obtained: 58. Findings: There is elevation of the right diaphragm. There is some motion of the right diaphragm with quiet breathing. There is not significant excursion with active sniffing. Finding appears similar to the I-123 comparison. IMPRESSION: 1. Diminished motion of the elevated right diaphragm.
== END | disposition home or self-care (01) ==
LOC: RADUSWWP 07:54
PROVIDERS: ATTEND Internal Medicine Clinical Cardiac Electrophysiology
DX: G83.9 Paralytic syndrome, unspecified (principal); Q79.1 Other congenital malformations of diaphragm
CPT/HCPCS: 76000

== ENCOUNTER 2023-07-09 07:23 | Emergency (ER) | payer BC ==
--- NOTE | 2023-07-09 08:01 | ED ---
Abdominal Pain HPI - General Chief Complaint: Abdominal Pain Stated Complaint: Abd Pain Time Seen by Provider: 07/09/23 07:37 Source: patient, RN notes reviewed Mode of arrival: ambulatory Limitations: no limitations - History of Present Illness Initial Comments: This is a 53-year-old female who presents to the emergency department for abdominal pain. States that she has been having problems with right upper quadrant abdominal pain for a while and followed up with her primary care provider. She had an outpatient ultrasound done and was diagnosed with gallstones. She was given a referral for general surgery, but states that they cannot get her in until September. Over the last couple of days the pain got worse and she has associated nausea. Denies any fever/chills or diarrhea/constipation. MD Complaint: abdominal pain - Related Data Home Medications Medication Instructions Recorded Confirmed Apixaban [Eliquis] 5 mg PO BID 07/15/19 07/09/23 Medroxyprogesterone Acetate 10 mg PO DAILY 04/25/21 07/09/23 [Provera] Pravastatin Sodium [Pravachol] 10 mg PO HS 04/25/21 07/09/23 clonazePAM [KlonoPIN] 0.25 - 0.5 mg PO HS PRN 04/25/21 07/09/23 Cetirizine HCl [Zyrtec] 10 mg PO HS 08/07/21 07/09/23 Ferrous Sulfate [Iron (65 MG 325 mg PO DAILY 07/03/22 07/09/23 Elemental)] Losartan Potassium 100 mg PO HS 07/03/22 07/09/23 Magnesium Oxide [Mag-Ox] 400 mg PO DAILY 07/03/22 07/09/23 Triamterene-Hctz 37.5-25Mg 1 tab PO DAILY 07/03/22 07/09/23 [Maxzide 37.5-25] metFORMIN HCL [Glucophage] 500 mg PO BID 07/03/22 07/09/23 Cholecalciferol (Vitamin D3) 50 mcg PO DAILY 07/09/23 07/09/23 [Vitamin D3 (50 Mcg = 2000 Iu)] Dronedarone [Multaq] 400 mg PO AC-BID 07/09/23 07/09/23 Metoprolol Tartrate [Lopressor] 25 mg PO DAILY PRN 07/09/23 07/09/23 Previous Rx's Medication Instructions Recorded Metoprolol Succinate (ER) [Toprol 50 mg PO BID 30 Days #60 tab 07/04/22 XL] Celecoxib 200 mg PO BID PRN #20 cap 07/09/23 Ondansetron Odt [Zofran Odt] 4 mg PO Q8HR PRN #15 tab 07/09/23 Allergies Allergy/AdvReac Type Severity Reaction Status Date / Time venom-honey bee Allergy Swelling Verified 07/09/23 09:58 [bee venom (honey bee)] at site of sting flecainide AdvReac "v-tach" Verified 07/09/23 09:58 lisinopril AdvReac Cough Verified 07/09/23 09:58 venlafaxine [From Effexor] AdvReac Vertigo Verified 07/09/23 09:58 Review of Systems ROS Statement: Those systems with pertinent positive or pertinent negative responses have been documented in the HPI. ROS Other: All systems not noted in ROS Statement are negative. Past Medical History Past Medical History: Atrial Fibrillation, Hypertension Additional Past Medical History / Comment(s): anemia History of Any Multi-Drug Resistant Organisms: None Reported Past Surgical History: Section Additional Past Surgical History / Comment(s): D&C 09/2018, cardiac ablation Past Anesthesia/Blood Transfusion Reactions: No Reported Reaction Past Psychological History: Anxiety, Depression Smoking Status: Never smoker Past Alcohol Use History: None Reported, Rare Past Drug Use History: None Reported - Past Family History Father Family Medical History: Hyperlipidemia, Osteoarthritis (OA) Mother Family Medical History: Thyroid Disorder Additional Family Medical History / Comment(s): GRAVES DISEASE. PT'S MOM IN HER SLEEP AT AGE OF 63 AFTER SURGERY. General Exam Limitations: no limitations General appearance: alert, in no apparent distress Head exam: Present: atraumatic, normocephalic, normal inspection Respiratory exam: Present: normal lung sounds bilaterally. Absent: respiratory distress, wheezes, rales, rhonchi, stridor Cardiovascular Exam: Present: regular rate, normal rhythm, normal heart sounds. Absent: systolic murmur, diastolic murmur, rubs, gallop, clicks GI/Abdominal exam: Present: soft, tenderness (RUQ), normal bowel sounds. Absent: distended, guarding, rebound, rigid Neurological exam: Present: alert, oriented X3, CN II-XII intact Psychiatric exam: Present: normal affect, normal mood Skin exam: Present: warm, dry, intact, normal color. Absent: rash Course Vital Signs 07/09/23 07/09/23 07:33 10:21 Temperature 97.5 F L 98.0 F Pulse Rate 73 61 Respiratory 16 18 Rate Blood Pressure 159/82 130/70 O2 Sat by Pulse 100 97 Oximetry Medical Decision Making - Medical Decision Making This is a 53 year old female who presents to the emergency department for abdominal pain. Was pt. sent in by a medical professional or institution? @ -No Did you speak to anyone other than the patient for history? @ -No Did you review nursing and triage notes? @ -Yes, and I agree, it is accurate with regards to the patient's symptoms. Were old charts reviewed? @ -No Differential Diagnosis? @ -Differential Abdominal Pain Women: Appendicitis, Cholecystitis, diverticulosis, ischemic bowel, pancreatitis, hepatitis, UTI, gastroenteritis, AAA, incarcerated hernia, bowel obstruction, constipation, inflammatory bowel, hepatitis, peptic ulcer disease, splenic infarction, perforated viscus, vulvitis, ovarian torsion, PID, kidney stone, placenta abruption, this is not meant to be an all-inclusive list EKG interpreted by me (3pts min.)? @ -EKG interpreted by me demonstrating the following: Sinus rhythm. Ventricular rate 68 bpm, WA interval 164 ms, QRS duration 114 ms, QTc 390 ms. X-rays interpreted by me (1pt min.)? @ -Not obtained CT interpreted by me (1pt min.)? @ -Not obtained U/S interpreted by me (1pt. min.)? @ -Gallbladder ultrasound obtained. My interpretation identifies cholelithiasis What testing was considered but not performed? (CT, X-rays, U/S, labs)? Why? @ -None What meds were considered but not given? Why? @ -None Did you discuss the management of the patient with other professionals? @ -No Did you reconcile home meds? @ -No Was smoking cessation discussed for >3mins.? @ -No Was critical care preformed (if so, how long)? @ -No Were there social determinants of health that impacted care today? How? (Homelessness, low income, unemployed, alcoholism, drug addiction, transportation, low edu. Level, literacy, decrease access to med. care, group home, rehab)? @ -No Was there de-escalation of care discussed even if they declined? (Discuss DNR or withdrawal of care, Hospice)? @ -No What co-morbidities impacted this encounter? (DM, HTN, Smoking, COPD, CAD, Cancer, CVA, Hep., AIDS, mental health diagnosis, sleep apnea, morbid obesity)? @ -Morbid obesity Was patient admitted / discharged? @ -Discharged. Lab work demonstrates a mildly elevated bilirubin of 1.7 and was otherwise unremarkable. Urinalysis consistent with contamination. Gallbladder ultrasound obtained demonstrating hepatomegaly and numerous gallstones filling the gallbladder. There is no evidence of cholecystitis. Patient's symptoms were well-controlled in the emergency department. I did offer to discuss admission for intractable pain with our general surgeon, however patient declined and requested follow-up outpatient. She was given information for different general surgeons at [facility] as well in the event they can get her in faster. She is advised to follow a bland and low-fat diet for the meantime to reduce the risk of symptom recurrence. Prescription for Celebrex and Zofran provided with dosing instructions reviewed. Undiagnosed new problem with uncertain prognosis? @ -None Drug Therapy requiring intensive monitoring for toxicity (Heparin, Nitro, Insulin, Cardizem)? @ -None Were any procedures done? @ -None Diagnosis/symptom? @ -Cholelithiasis, biliary colic Acute, or Chronic, or Acute on Chronic? @ -Acute Uncomplicated (without systemic symptoms) or Complicated (systemic symptoms)? @ -Uncomplicated Side effects of treatment? @ -None Exacerbation, Progression, or Severe Exacerbation] @ -Not applicable Poses a threat to life or bodily function? @ -No Return precautions reviewed in depth, the patient is instructed to return to the emergency department with any new, worsening, or concerning symptoms. Patient verbalized understanding. This case was discussed in detail with the attending ED physician, Dr. Lynch. Presentation, findings, and treatment plan discussed in detail as well. - Lab Data Result diagrams: 07/09/23 07:57 07/09/23 07:57 Lab Results 07/09/23 07/09/23 07/09/23 Range/Units 07:57 07:57 07:57 WBC 6.5 (3.8-10.6) k/uL RBC 4.62 (3.80-5.40) m/uL Hgb 13.2 (11.4-16.0) gm/dL Hct 39.4 (34.0-46.0) % MCV 85.3 (80.0-100.0) fL MCH 28.6 (25.0-35.0) pg MCHC 33.5 (31.0-37.0) g/dL RDW 13.2 (11.5-15.5) % Plt Count 116 L (150-450) k/uL MPV 11.5 Neutrophils % 76 % Lymphocytes % 15 % Monocytes % 5 % Eosinophils % 1 % Basophils % 1 % Neutrophils # 4.9 (1.3-7.7) k/uL Lymphocytes # 1.0 (1.0-4.8) k/uL Monocytes # 0.3 (0-1.0) k/uL Eosinophils # 0.1 (0-0.7) k/uL Basophils # 0.1 (0-0.2) k/uL Sodium 137 (137-145) mmol/L Potassium 4.0 (3.5-5.1) mmol/L Chloride 103 (98-107) mmol/L Carbon Dioxide 24 (22-30) mmol/L Anion Gap 10 mmol/L BUN 10 (7-17) mg/dL Creatinine 0.66 (0.52-1.04) mg/dL Est GFR (CKD-EPI)AfAm >90 (>60 ml/min/1.73 sqM) Est GFR (CKD-EPI)NonAf >90 (>60 ml/min/1.73 sqM) Glucose 219 H (74-99) mg/dL Plasma Lactic Acid Cristóbal (0.7-2.0) mmol/L Calcium 9.1 (8.4-10.2) mg/dL Total Bilirubin 1.7 H (0.2-1.3) mg/dL AST 27 (14-36) U/L ALT 31 (4-34) U/L Alkaline Phosphatase 38 (38-126) U/L Total Protein 7.3 (6.3-8.2) g/dL Albumin 4.2 (3.5-5.0) g/dL Amylase 42 (30-110) U/L Lipase 71 (23-300) U/L Urine Color Yellow Urine Appearance Cloudy H (Clear) Urine pH 5.5 (5.0-8.0) Ur Specific Roscoe 1.023 (1.001-1.035) Urine Protein Trace H (Negative) Urine Glucose (UA) Negative (Negative) Urine Ketones Negative (Negative) Urine Blood Negative (Negative) Urine Nitrite Negative (Negative) Urine Bilirubin Negative (Negative) Urine Urobilinogen <2.0 (<2.0) mg/dL Ur Leukocyte Esterase Large H (Negative) Urine RBC 8 H (0-5) /hpf Urine WBC 31 H (0-5) /hpf Ur Squamous Epith Cells 15 H (0-4) /hpf Urine Bacteria Rare H (None) /hpf Urine Mucus Occasional H (None) /hpf 07/09/23 Range/Units 07:57 WBC (3.8-10.6) k/uL RBC (3.80-5.40) m/uL Hgb (11.4-16.0) gm/dL Hct (34.0-46.0) % MCV (80.0-100.0) fL MCH (25.0-35.0) pg MCHC (31.0-37.0) g/dL RDW (11.5-15.5) % Plt Count (150-450) k/uL MPV Neutrophils % % Lymphocytes % % Monocytes % % Eosinophils % % Basophils % % Neutrophils # (1.3-7.7) k/uL Lymphocytes # (1.0-4.8) k/uL Monocytes # (0-1.0) k/uL Eosinophils # (0-0.7) k/uL Basophils # (0-0.2) k/uL Sodium (137-145) mmol/L Potassium (3.5-5.1) mmol/L Chloride (98-107) mmol/L Carbon Dioxide (22-30) mmol/L Anion Gap mmol/L BUN (7-17) mg/dL Creatinine (0.52-1.04) mg/dL Est GFR (CKD-EPI)AfAm (>60 ml/min/1.73 sqM) Est GFR (CKD-EPI)NonAf (>60 ml/min/1.73 sqM) Glucose (74-99) mg/dL Plasma Lactic Acid Cristóbal 1.9 (0.7-2.0) mmol/L Calcium (8.4-10.2) mg/dL Total Bilirubin (0.2-1.3) mg/dL AST (14-36) U/L ALT (4-34) U/L Alkaline Phosphatase (38-126) U/L Total Protein (6.3-8.2) g/dL Albumin (3.5-5.0) g/dL Amylase (30-110) U/L Lipase (23-300) U/L Urine Color Urine Appearance (Clear) Urine pH (5.0-8.0) Ur Specific Roscoe (1.001-1.035) Urine Protein (Negative) Urine Glucose (UA) (Negative) Urine Ketones (Negative) Urine Blood (Negative) Urine Nitrite (Negative) Urine Bilirubin (Negative) Urine Urobilinogen (<2.0) mg/dL Ur Leukocyte Esterase (Negative) Urine RBC (0-5) /hpf Urine WBC (0-5) /hpf Ur Squamous Epith Cells (0-4) /hpf Urine Bacteria (None) /hpf Urine Mucus (None) /hpf - Radiology Data Radiology results: report reviewed, image reviewed Disposition Clinical Impression: Cholelithiasis, Biliary colic Disposition: HOME SELF-CARE Instructions (If sedation given, give patient instructions): Biliary Colic (ED), Gallstones (ED), Low Fat Diet (ED) Additional Instructions: Return to the emergency department with any new, worsening, or concerning symptoms. Take the Celebrex with Tylenol as needed for pain relief. If you choose to take the Celebrex, do not take any other anti-inflammatories such as ibuprofen, take 1 or the other. You can take the Zofran up to every 8 hours as needed for nausea and vomiting. Try to follow a very bland and low-fat diet for the meantime to reduce the risk of recurrence. You can try contacting the general surgery providers listed below at [facility] to see if they can get you in for a sooner follow-up appointment. Follow up with your primary care provider in 1-2 days. Prescriptions: Celecoxib 200 mg PO BID PRN #20 cap PRN Reason: Pain Ondansetron Odt [Zofran Odt] 4 mg PO Q8HR PRN #15 tab PRN Reason: Nausea And Vomiting Is patient prescribed a controlled substance at d/c from ED?: No Referrals: Katelynn Galvan DO [Primary Care Provider] - 1-2 days Marsha Barron DO [REFERRING] - 1-2 days Dagmar Gray MD [Medical Doctor] - 1-2 days Jana Nguyen DO [REFERRING] - 1-2 days Time of Disposition: 09:56
[2023-07-09] MEDS: KETOROLAC 15 MG/ML 1 ML VIAL IVP STA ×2 (08:17→10:14)
[2023-07-09] MEDS: ONDANSETRON 4 MG/2 ML VIAL IVP STA ×2 (08:19→10:14)
[2023-07-09] MEDS: SODIUM CHLORIDE 0.9% 1,000 ML IV STA (08:19)
[2023-07-09 08:22] LABS: Basophils # (A) 0.1 k/uL (0-0.2); Basophils % (A) 1 %; Eosinophils # (A) 0.1 k/uL (0-0.7); Eosinophils % (A) 1 %; HCT 39.4 % (34.0-46.0); HGB 13.2 gm/dL (11.4-16.0); Lymphocytes % (A) 15 %; MCH 28.6 pg (25.0-35.0); MCHC 33.5 g/dL (31.0-37.0); MCV 85.3 fL (80.0-100.0); Mean Platelet Volume 11.5; Monocytes # (A) 0.3 k/uL (0-1.0); Monocytes % (A) 5 %; Neutrophils # (A) 4.9 k/uL (1.3-7.7); Neutrophils % (A) 76 %; Platelet Count 116 k/uL (150-450); RBC 4.62 m/uL (3.80-5.40); RDW 13.2 % (11.5-15.5); WBC 6.5 k/uL (3.8-10.6)
[2023-07-09 08:25] LABS: ALT 31 U/L (4-34); AST 27 U/L (14-36); African American GFR (CKD) >90 (>60 ml/min/1.73 sqM); Albumin 4.2 g/dL (3.5-5.0); Alkaline Phosphatase 38 U/L (38-126); Amylase 42 U/L (30-110); Anion Gap 10 mmol/L; Blood Urea Nitrogen 10 mg/dL (7-17); Calcium 9.1 mg/dL (8.4-10.2); Carbon Dioxide 24 mmol/L (22-30); Chloride 103 mmol/L (98-107); Glucose 219 mg/dL (74-99); Lipase 71 U/L (23-300); Non-African American GFR(CKD) >90 (>60 ml/min/1.73 sqM); Sodium 137 mmol/L (137-145); Total Bilirubin 1.7 mg/dL (0.2-1.3); Total Protein 7.3 g/dL (6.3-8.2)
--- NOTE | 2023-07-09 09:07 | US ---
EXAMINATION TYPE: US gallbladder DATE OF EXAM: 07/09/2023 COMPARISON: NONE CLINICAL INDICATION: Female, 53 years old with history of RUQ pain, hx of gallstones; RUQ pain hx of stones. TECHNIQUE: Multiple sonographic images of the right upper quadrant are obtained. FINDINGS: EXAM MEASUREMENTS: Liver Length: 23.2 cm Gallbladder Wall: .2 cm CBD: 5.5 mm Right Kidney: 11.6 x 5.2 x 6.5 cm Pancreas: Obscured by bowel gas Liver: Increased attenuation, hepatomegaly. Gallbladder: multiple stones seen. No gallbladder hydrops or surrounding fluid. Evidence for sonographic Queen's sign: no CBD: wnl Right Kidney: No hydronephrosis or masses seen IMPRESSION: 1. Hepatomegaly at 23.2 cm with severe hepatic steatosis. Appropriate clinical management is advised. 2. Numerous gallstones filling the gallbladder.
[2023-07-09 09:08] LABS: Appearance,Urine Cloudy (Clear); Bacteria,Urine Rare /hpf; Bilirubin,Urine Negative (Negative); Blood,Urine Negative (Negative); Color,Urine Yellow; Glucose,Urine (UA) Negative (Negative); Ketones,Urine Negative (Negative); Leukocyte Esterase,Urine Large (Negative); Mucus,Urine Occasional /hpf; Nitrite,Urine Negative (Negative); PH, Urine 5.5 (5.0-8.0); Protein,Urine Trace (Negative); RBC,Urine 8 /hpf (0-5); Specific Gravity,Urine 1.023 (1.001-1.035); Squamous Epithelial Cell,Urine 15 /hpf (0-4); Urobilinogen,Urine <2.0 mg/dL (<2.0); WBC,Urine 31 /hpf (0-5)
[2023-07-09] MEDS: HYDROmorphone 0.5 MG/0.5 ML SYRINGE IVP STA (10:21)
[2023-07-09 10:41] VITALS: BP 130/70; PULSE 61; RESP 18; TEMP 98
== END 2023-07-09 10:21 | disposition home or self-care (01) ==
LOC: EC 07:23
DX: K80.70 Calculus of gallbladder and bile duct without cholecystitis without obstruction (principal); E66.01 Morbid (severe) obesity due to excess calories; Z88.8 Allergy status to other drugs, medicaments and biological substances; Z91.030 Bee allergy status; Z68.43 Body mass index [BMI] 50.0-59.9, adult
CPT/HCPCS: 93005; 36415; 80053; 82150; 83605; 83690; 85025; 81001; 76705; 99284; 96374; 96375; 96376 ×2; 96361 ×2; J2405; J1885

== ENCOUNTER 2023-08-16 10:08 | Emergency (ER) | payer BC ==
[2023-08-16 10:55] VITALS: TEMP 97.8
[2023-08-16 11:52] LABS: ALT 25 U/L (4-34); AST 23 U/L (14-36); African American GFR (CKD) >90 (>60 ml/min/1.73 sqM); Albumin 4.2 g/dL (3.5-5.0); Alkaline Phosphatase 37 U/L (38-126); Anion Gap 10 mmol/L; Blood Urea Nitrogen 13 mg/dL (7-17); Calcium 8.8 mg/dL (8.4-10.2); Carbon Dioxide 20 mmol/L (22-30); Chloride 105 mmol/L (98-107); Glucose 259 mg/dL (74-99); Magnesium 1.7 mg/dL (1.6-2.3); Non-African American GFR(CKD) >90 (>60 ml/min/1.73 sqM); Sodium 135 mmol/L (137-145); Total Bilirubin 0.9 mg/dL (0.2-1.3); Total Protein 7.1 g/dL (6.3-8.2)
[2023-08-16 11:56] LABS: INR 0.9 (<1.2); Partial Thromboplastin Time 25.3 sec (22.0-30.0); Prothrombin Time 10.5 sec (10.0-12.5)
--- NOTE | 2023-08-16 12:02 | ED ---
Arrhythmia/Palpitations HPI - General Chief Complaint: Arrhythmia/Palpitations Stated Complaint: Weakness,Poss A Fib Time Seen by Provider: 08/16/23 10:40 Source: patient, family Mode of arrival: ambulatory Limitations: no limitations - History of Present Illness Initial Comments: 53-year-old female presents emergency department reporting weakness and rapid heart rate. States that her symptoms started last night. She does have a history of A-fib and feels that her symptoms are similar. States that she has had an ablation and cardioversion. She has not had an issue with her A-fib in a year. She takes Multaq 400 mg twice daily. Denies missing any doses. She also takes Eliquis for her anticoagulation. She has no history of coronary disease. No history of thyroid disease. Denies any chest pain or shortness of breath. No infectious symptoms to include fevers or chills. No other alleviating, precipitating or modifying factors - Related Data Home Medications Medication Instructions Recorded Confirmed Apixaban [Eliquis] 5 mg PO BID 07/15/19 08/16/23 Medroxyprogesterone Acetate 10 mg PO DAILY 04/25/21 08/16/23 [Provera] Pravastatin Sodium [Pravachol] 10 mg PO HS 04/25/21 08/16/23 clonazePAM [KlonoPIN] 0.25 - 0.5 mg PO HS PRN 04/25/21 08/16/23 Cetirizine HCl [Zyrtec] 10 mg PO HS 08/07/21 08/16/23 Ferrous Sulfate [Iron (65 MG 325 mg PO DAILY 07/03/22 08/16/23 Elemental)] Losartan Potassium 100 mg PO HS 07/03/22 08/16/23 Magnesium Oxide [Mag-Ox] 400 mg PO DAILY 07/03/22 08/16/23 Triamterene-Hctz 37.5-25Mg 1 tab PO DAILY 07/03/22 08/16/23 [Maxzide 37.5-25] metFORMIN HCL [Glucophage] 500 mg PO BID 07/03/22 08/16/23 Cholecalciferol (Vitamin D3) 50 mcg PO DAILY 07/09/23 08/16/23 [Vitamin D3 (50 Mcg = 2000 Iu)] Dronedarone [Multaq] 400 mg PO AC-BID 07/09/23 08/16/23 Metoprolol Tartrate [Lopressor] 25 mg PO DAILY PRN 07/09/23 08/16/23 Previous Rx's Medication Instructions Recorded Metoprolol Succinate (ER) [Toprol 50 mg PO BID 30 Days #60 tab 07/04/22 XL] Allergies Allergy/AdvReac Type Severity Reaction Status Date / Time venom-honey bee Allergy Swelling Verified 08/16/23 12:08 [bee venom (honey bee)] at site of sting flecainide AdvReac "v-tach" Verified 08/16/23 12:08 lisinopril AdvReac Cough Verified 08/16/23 12:08 venlafaxine [From Effexor] AdvReac Vertigo Verified 08/16/23 12:08 Review of Systems ROS Statement: Those systems with pertinent positive or pertinent negative responses have been documented in the HPI. ROS Other: All systems not noted in ROS Statement are negative. Past Medical History Past Medical History: Atrial Fibrillation, Hypertension Additional Past Medical History / Comment(s): anemia History of Any Multi-Drug Resistant Organisms: None Reported Past Surgical History: Section Additional Past Surgical History / Comment(s): D&C 09/2018, cardiac ablation Past Anesthesia/Blood Transfusion Reactions: No Reported Reaction Past Psychological History: Anxiety, Depression Smoking Status: Never smoker Past Alcohol Use History: None Reported, Rare Past Drug Use History: None Reported - Past Family History Father Family Medical History: Hyperlipidemia, Osteoarthritis (OA) Mother Family Medical History: Thyroid Disorder Additional Family Medical History / Comment(s): GRAVES DISEASE. PT'S MOM IN HER SLEEP AT AGE OF 63 AFTER SURGERY. General Exam Limitations: no limitations General appearance: alert, in no apparent distress Head exam: Present: atraumatic, normocephalic, normal inspection Eye exam: Present: normal appearance, PERRL, EOMI. Absent: scleral icterus, conjunctival injection, periorbital swelling ENT exam: Present: normal exam, mucous membranes moist Neck exam: Present: normal inspection. Absent: tenderness, meningismus, lymphadenopathy Respiratory exam: Present: normal lung sounds bilaterally. Absent: respiratory distress, wheezes, rales, rhonchi, stridor Cardiovascular Exam: Present: tachycardia, irregular rhythm, normal heart sounds. Absent: systolic murmur, diastolic murmur, rubs, gallop, clicks GI/Abdominal exam: Present: soft, normal bowel sounds. Absent: distended, tenderness, guarding, rebound, rigid Extremities exam: Present: normal inspection, full ROM, normal capillary refill. Absent: tenderness, pedal edema, joint swelling, calf tenderness Back exam: Present: normal inspection Neurological exam: Present: alert, oriented X3, CN II-XII intact Psychiatric exam: Present: normal affect, normal mood Skin exam: Present: warm, dry, intact, normal color. Absent: rash Course Vital Signs 08/16/23 08/16/23 08/16/23 10:30 11:42 12:00 Temperature 97.8 F Pulse Rate 134 H 77 Pulse Rate [ 133 H Tooth Inspector ] Respiratory 20 16 Rate Blood Pressure 133/83 144/81 O2 Sat by Pulse 97 96 Oximetry 08/16/23 08/16/23 12:27 14:06 Temperature Pulse Rate 71 61 Pulse Rate [ Tooth Inspector ] Respiratory 16 14 Rate Blood Pressure 150/79 O2 Sat by Pulse 99 98 Oximetry Medical Decision Making - Medical Decision Making Was pt. sent in by a medical professional or institution (, PA, FOOTWEAR SALES LEADER, urgent care, hospital, or group home...) When possible be specific @ -No Did you speak to anyone other than the patient for history (EMS, parent, family, police, friend...)? What history was obtained from this source @ -No Did you review nursing and triage notes (agree or disagree)? Why? @ -I reviewed and agree with nursing and triage notes Were old charts reviewed (outside hosp., previous admission, EMS record, old EKG, old radiological studies, urgent care reports/EKG's, group home records)? Report findings @ -No old charts were reviewed Differential Diagnosis (chest pain, altered mental status, abdominal pain women, abdominal pain men, vaginal bleeding, weakness, fever, dyspnea, syncope, headache, dizziness, GI bleed, back pain, seizure, CVA, palpatations, mental health, musculoskeletal)? @ -Differential Palpitations Ventricular arrhythmias, atrial arrhythmias, myocardial infarction, anemia, thyrotoxicosis, electrolyte imbalance, hypokalemia, pulmonary embolism, pulmonar y disease, drugs, alcohol, anxiety, stress.... This is not meant to be an all-inclusive list. EKG interpreted by me (3pts min.). @ -Yes and demonstrates A-fib with a rate of 122. QRS 98. QTc of 368. ST depression in lead II and V5V6 Repeat done at 1234 demonstrates normal sinus rhythm with a rate of 61. MT interval 174. QRS 100. QTc of 366. No acute ST segment elevations. Inverted T wave lead III X-rays interpreted by me (1pt min.). @ -Yes and demonstrates no acute process CT interpreted by me (1pt min.). @ -None done U/S interpreted by me (1pt. min.). @ -None done What testing was considered but not performed or refused? (CT, X-rays, U/S, labs)? Why? @ -None What meds were considered but not given or refused? Why? @ -Cardizem was ordered however patient converted before it was administered Did you discuss the management of the patient with other professionals (professionals i.e. , PA, FOOTWEAR SALES LEADER, lab, RT, psych nurse, social service manager, professor of mathematics, teacher, probation officer, spring encaser)? Give summary @ -No Was smoking cessation discussed for >3mins.? @ -No Was critical care preformed (if so, how long)? @ -No Were there social determinants of health that impacted care today? How? (Homelessness, low income, unemployed, alcoholism, drug addiction, transportation, low edu. Level, literacy, decrease access to med. care, residential, rehab)? @ -No Was there de-escalation of care discussed even if they declined (Discuss DNR or withdrawal of care, Hospice)? DNR status @ -No What co-morbidities impacted this encounter? (DM, HTN, Smoking, COPD, CAD, Cancer, CVA, ARF, Chemo, Hep., AIDS, mental health diagnosis, sleep apnea, morbid obesity)? @ -A-fib Was patient admitted / discharged? Hospital course, mention meds given and route, prescriptions, significant lab abnormalities, going to OR and other pertinent info. @ -Upon arrival patient seen and evaluated in room 9. Thorough history and physical exam was performed. Patient placed on continuous pulse ox and cardiac monitoring. Twelve-lead EKG was obtained which demonstrates A-fib. Laboratory studies are conducted and a chest x-ray was performed. I did order Cardizem. The patient does convert on her own without any medication administration. Patient does have metoprolol that she takes at home twice daily. She has an extra 25 mg dose that she can take if she goes into A-fib. Patient did take a dose today. She is informed that she may continue this treatment plan in the future should she return back into A-fib. Recommended that she follow-up with her sewage screen operator within the next 2 to 4 days. Return for any new or worsening symptoms. Patient agreeable to plan she was discharged in stable condition Undiagnosed new problem with uncertain prognosis? @ -No Drug Therapy requiring intensive monitoring for toxicity (Heparin, Nitro, Insulin, Cardizem)? @ -No Were any procedures done? @ -No Diagnosis/symptom? @ -Acute palpitations, A-fib with RVR, history of A-fib Acute, or Chronic, or Acute on Chronic? @ -Acute on chronic Uncomplicated (without systemic symptoms) or Complicated (systemic symptoms)? @Complicated Side effects of treatment? @ -No Exacerbation, Progression, or Severe Exacerbation? @ -No Poses a threat to life or bodily function? How? (Chest pain, [place], [place], pneumonia, PE, COPD, DKA, ARF, appy, cholecystitis, CVA, Diverticulitis, Homicidal, Suicidal, threat to staff... and all critical care pts) @ -Yes as patient arrives with rapid heart rate - Lab Data Result diagrams: 08/16/23 11:16 08/16/23 11:16 Lab Results 08/16/23 08/16/23 08/16/23 Range/Units 11:16 11:16 11:16 WBC 9.1 (3.8-10.6) k/uL RBC 4.97 (3.80-5.40) m/uL Hgb 14.0 (11.4-16.0) gm/dL Hct 43.3 (34.0-46.0) % MCV 87.1 (80.0-100.0) fL MCH 28.2 (25.0-35.0) pg MCHC 32.4 (31.0-37.0) g/dL RDW 13.0 (11.5-15.5) % Plt Count 133 L (150-450) k/uL MPV 12.6 Neutrophils % 81 % Lymphocytes % 10 % Monocytes % 6 % Eosinophils % 1 % Basophils % 1 % Neutrophils # 7.4 (1.3-7.7) k/uL Lymphocytes # 0.9 L (1.0-4.8) k/uL Monocytes # 0.5 (0-1.0) k/uL Eosinophils # 0.1 (0-0.7) k/uL Basophils # 0.1 (0-0.2) k/uL Manual Slide Review Performed Large Platelets Present PT 10.5 (10.0-12.5) sec INR 0.9 (<1.2) APTT 25.3 (22.0-30.0) sec Sodium 135 L (137-145) mmol/L Potassium 4.0 (3.5-5.1) mmol/L Chloride 105 (98-107) mmol/L Carbon Dioxide 20 L (22-30) mmol/L Anion Gap 10 mmol/L BUN 13 (7-17) mg/dL Creatinine 0.65 (0.52-1.04) mg/dL Est GFR (CKD-EPI)AfAm >90 (>60 ml/min/1.73 sqM) Est GFR (CKD-EPI)NonAf >90 (>60 ml/min/1.73 sqM) Glucose 259 H (74-99) mg/dL Calcium 8.8 (8.4-10.2) mg/dL Magnesium 1.7 (1.6-2.3) mg/dL Total Bilirubin 0.9 (0.2-1.3) mg/dL AST 23 (14-36) U/L ALT 25 (4-34) U/L Alkaline Phosphatase 37 L (38-126) U/L Troponin I (0.000-0.034) ng/mL Total Protein 7.1 (6.3-8.2) g/dL Albumin 4.2 (3.5-5.0) g/dL TSH 1.140 (0.465-4.680) mIU/L 08/16/23 Range/Units 11:16 WBC (3.8-10.6) k/uL RBC (3.80-5.40) m/uL Hgb (11.4-16.0) gm/dL Hct (34.0-46.0) % MCV (80.0-100.0) fL MCH (25.0-35.0) pg MCHC (31.0-37.0) g/dL RDW (11.5-15.5) % Plt Count (150-450) k/uL MPV Neutrophils % % Lymphocytes % % Monocytes % % Eosinophils % % Basophils % % Neutrophils # (1.3-7.7) k/uL Lymphocytes # (1.0-4.8) k/uL Monocytes # (0-1.0) k/uL Eosinophils # (0-0.7) k/uL Basophils # (0-0.2) k/uL Manual Slide Review Large Platelets PT (10.0-12.5) sec INR (<1.2) APTT (22.0-30.0) sec Sodium (137-145) mmol/L Potassium (3.5-5.1) mmol/L Chloride (98-107) mmol/L Carbon Dioxide (22-30) mmol/L Anion Gap mmol/L BUN (7-17) mg/dL Creatinine (0.52-1.04) mg/dL Est GFR (CKD-EPI)AfAm (>60 ml/min/1.73 sqM) Est GFR (CKD-EPI)NonAf (>60 ml/min/1.73 sqM) Glucose (74-99) mg/dL Calcium (8.4-10.2) mg/dL Magnesium (1.6-2.3) mg/dL Total Bilirubin (0.2-1.3) mg/dL AST (14-36) U/L ALT (4-34) U/L Alkaline Phosphatase (38-126) U/L Troponin I <0.012 (0.000-0.034) ng/mL Total Protein (6.3-8.2) g/dL Albumin (3.5-5.0) g/dL TSH (0.465-4.680) mIU/L Disposition Clinical Impression: Atrial fibrillation with RVR Disposition: HOME SELF-CARE Condition: Stable Instructions (If sedation given, give patient instructions): A-fib (Atrial Fib rillation) (ED) Additional Instructions: You can take an extra dose of your metoprolol if needed. Follow-up with Dr. Mcdaniel. Return for any new or worsening symptoms Is patient prescribed a controlled substance at d/c from ED?: No Referrals: Katelynn Galvan DO [Primary Care Provider] - 1-2 days Stephen Mcdaniel MD [STAFF PHYSICIAN] - 1-2 days Time of Disposition: 13:56
[2023-08-16 12:03] LABS: Basophils # (A) 0.1 k/uL (0-0.2); Basophils % (A) 1 %; Eosinophils # (A) 0.1 k/uL (0-0.7); Eosinophils % (A) 1 %; HCT 43.3 % (34.0-46.0); Lymphocytes # (A) 0.9 k/uL (1.0-4.8); Lymphocytes % (A) 10 %; MCH 28.2 pg (25.0-35.0); MCHC 32.4 g/dL (31.0-37.0); MCV 87.1 fL (80.0-100.0); Mean Platelet Volume 12.6; Monocytes # (A) 0.5 k/uL (0-1.0); Monocytes % (A) 6 %; Neutrophils # (A) 7.4 k/uL (1.3-7.7); Neutrophils % (A) 81 %; Platelet Count 133 k/uL (150-450); RBC 4.97 m/uL (3.80-5.40); WBC 9.1 k/uL (3.8-10.6)
[2023-08-16 12:51] LABS: Large Platelets Present
[2023-08-16] MEDS: DILTIAZEM 125 MG in SODIUM CHLORIDE 0.9% 100 ML IV SCH (13:41)
[2023-08-16] MEDS: DILTIAZEM DRIP BOLUS FROM BAG 1 MG SOLN IV ONE (13:41)
--- NOTE | 2023-08-16 14:04 | XR ---
EXAMINATION TYPE: XR chest 2V DATE OF EXAM: 08/16/2023 COMPARISON: 07/03/2022 INDICATION: Dizziness lightheaded tachycardia TECHNIQUE: Frontal and lateral views of the chest are obtained. FINDINGS: The heart size is normal. The pulmonary vasculature is normal. The lungs are clear. IMPRESSION: 1. No acute pulmonary process.
[2023-08-16 14:21] VITALS: BP 150/79; PULSE 61; RESP 14
== END 2023-08-16 14:07 | disposition home or self-care (01) ==
LOC: EC 10:08
DX: I48.20 Chronic atrial fibrillation, unspecified (principal); Z91.030 Bee allergy status; Z88.6 Allergy status to analgesic agent; Z88.8 Allergy status to other drugs, medicaments and biological substances
CPT/HCPCS: 36415; 71046; 80053; 83735; 84443; 84484; 85025; 85610; 85730; 93005; 99285